=== PATIENT | male | born 1970 | race Caucasian/White ===

== ENCOUNTER → 2017-10-16 15:25 | Outpatient (REF) | payer MEDICAID, SELFPAY ==
[2017-10-16 19:08] LABS: Amphetamine/Metha Screen,Urine Negative ng/mL (<1000); Barbiturates Screen,Urine Negative ng/mL (<200); Benzodiazepines Screen,Urine Negative ng/mL (200); Cannabinoid Screen,Urine Negative ng/mL (<50); Cocaine Screen,Urine Negative ng/g (<300); Methadone Screen,Urine Negative ng/mL (<300); Opiate Screen,Urine Negative ng/mL (<300); Phencyclidine Screen,Urine Negative ng/mL (<25)
== END ==
LOC: LAB 15:25
PROVIDERS: Visit Provider Nurse Practitioner Family
DX: Z79.899 Other long term (current) drug therapy (principal)
CPT/HCPCS: 80305

== ENCOUNTER → 2018-03-04 14:31 | Outpatient (REF) | payer MEDICAID, SELFPAY ==
[2018-03-04 18:33] LABS: Amphetamine/Metha Screen,Urine Negative ng/mL (<1000); Barbiturates Screen,Urine Negative ng/mL (<200); Benzodiazepines Screen,Urine Negative ng/mL (<200); Cannabinoid Screen,Urine Negative ng/mL (<50); Cocaine Screen,Urine Negative ng/mL (<300); Methadone Screen,Urine Negative ng/mL (<300); Opiate Screen,Urine Negative ng/mL (<300); Phencyclidine Screen,Urine Negative ng/mL (<25)
== END ==
LOC: LAB 14:31
PROVIDERS: Visit Provider Nurse Practitioner Family
DX: Z79.899 Other long term (current) drug therapy (principal)
CPT/HCPCS: 80305

== ENCOUNTER → 2018-04-15 14:05 | Outpatient (REF) | payer MEDICAID, SELFPAY ==
[2018-04-15 19:46] LABS: Amphetamine/Metha Screen,Urine Negative ng/mL (<1000); Barbiturates Screen,Urine Negative ng/mL (<200); Benzodiazepines Screen,Urine Negative ng/mL (<200); Cannabinoid Screen,Urine Negative ng/mL (<50); Cocaine Screen,Urine Negative ng/mL (<300); Methadone Screen,Urine Negative ng/mL (<300); Opiate Screen,Urine Negative ng/mL (<300); Phencyclidine Screen,Urine Negative ng/mL (<25)
== END ==
LOC: LAB 14:05
PROVIDERS: Visit Provider Nurse Practitioner Family
DX: Z79.899 Other long term (current) drug therapy (principal)
CPT/HCPCS: 80305

== ENCOUNTER → 2018-05-26 16:05 | Outpatient (REF) | payer MEDICAID, SELFPAY ==
[2018-05-26 19:22] LABS: Amphetamine/Metha Screen,Urine Negative ng/mL (<1000); Barbiturates Screen,Urine Negative ng/mL (<200); Benzodiazepines Screen,Urine Negative ng/mL (<200); Cannabinoid Screen,Urine Negative ng/mL (<50); Cocaine Screen,Urine Negative ng/mL (<300); Methadone Screen,Urine Negative ng/mL (<300); Opiate Screen,Urine Negative ng/mL (<300); Phencyclidine Screen,Urine Negative ng/mL (<25)
== END ==
LOC: LAB 16:05
PROVIDERS: Visit Provider Nurse Practitioner Family
DX: Z79.899 Other long term (current) drug therapy (principal)
CPT/HCPCS: 80305

== ENCOUNTER → 2018-06-05 17:34 | Outpatient (CLI) | payer MEDICAID, SELFPAY ==
--- NOTE | 2018-06-05 17:38 | XR_ITS ---
XR hip RT 2-3V w/pelvis HISTORY: ITS.REASON: ba hip and ba leg pain ORDERING PHYSICIAN: Hina Chilel PATIENT AGE: 47 years COMPARISON: None FINDINGS: No fracture or dislocation is evident. No significant degenerative change. No lytic or blastic change. Unremarkable soft tissues IMPRESSION: Negative hip
--- NOTE | 2018-06-05 17:57 | XR_ITS ---
XR hip LT 2-3V w/pelvis HISTORY: ITS.REASON: BILATERAL HIP LEG PAIN ORDERING PHYSICIAN: Hina Chilel PATIENT AGE: 47 years COMPARISON: None FINDINGS: No fracture or dislocation is evident. No significant degenerative change. No lytic or blastic change. Unremarkable soft tissues IMPRESSION: Negative hip
== END ==
PROVIDERS: PCP Nurse Practitioner Family; Visit Provider Nurse Practitioner Family
DX: M25.551 Pain in right hip (principal); M25.552 Pain in left hip; M79.604 Pain in right leg; M79.605 Pain in left leg
CPT/HCPCS: 73502

== ENCOUNTER → 2018-06-10 19:05 | Outpatient (REF) | payer MEDICAID, SELFPAY ==
[2018-06-10 20:27] LABS: Alanine Aminotransferase 30 U/L (12-78); Albumin Level 4.3 gm/dL (3.4-5.0); Albumin/Globulin Ratio 1.3 (1.1-1.8); Alkaline Phosphatase 74 U/L (46-116); Aspartate Amino Transferase 21 U/L (15-37); Bilirubin,Total 0.6 mg/dL (0.2-1.0); Blood Urea Nitrogen 8 mg/dL (7-18); Calcium 9.1 mg/dL (8.5-10.1); Carbon Dioxide 28 mmol/L (21.0-32.0); Chloride 103 mmol/L (98-107); Creatinine,Serum 0.88 mg/dL (0.70-1.30); Estimated Glomerular Filt Rate 94 ml/min (>60); GFR (African American) 113 ML/MIN (>60); Globulin 3.3 gm/dl (1.3-3.2); Glucose 94 mg/dL (74-106); Sodium 141 mmol/L (136-145); Total Protein,Serum 7.6 gm/dL (6.4-8.2)
[2018-06-10 20:28] LABS: C-Reactive Protein < 0.2 mg/L (0.0-0.9)
[2018-06-10 21:03] LABS: Erythrocyte Sedimentation Rate 15 mm/hr (0-15)
[2018-06-12 14:15] LABS: Anti-Centromere B Antibodies <0.2 AI (0.0-0.9); Anti-Jo-1 <0.2 AI (0.0-0.9); Anti-Smith Antibody <0.2 AI (0.0-0.9); Antichromatin Antibodies <0.2 AI (0.0-0.9); Antiscleroderma-70 Antibodies <0.2 AI (0.0-0.9); RNP Antibodies 0.3 AI (0.0-0.9); Sjogren's Anti-SS-A <0.2 AI (0.0-0.9); Sjogren's Anti-SS-B <0.2 AI (0.0-0.9)
[2018-06-12 18:06] LABS: Anti-DNA (DS) Ab Qn <1 IU/mL (0-9)
== END ==
LOC: LAB 19:05
PROVIDERS: PCP Nurse Practitioner Family; Visit Provider Nurse Practitioner Family
DX: M25.551 Pain in right hip (principal); M25.552 Pain in left hip
CPT/HCPCS: 80053; 85651; 86140; 86225; 86235

== ENCOUNTER → 2018-07-22 20:55 | Outpatient (CLI) | payer MEDICAID, SELFPAY ==
[2018-07-22 22:54] LABS: Amphetamine/Metha Screen,Urine Negative ng/mL (<1000); Barbiturates Screen,Urine Negative ng/mL (<200); Benzodiazepines Screen,Urine Negative ng/mL (<200); Cannabinoid Screen,Urine Negative ng/mL (<50); Cocaine Screen,Urine Negative ng/mL (<300); Methadone Screen,Urine Negative ng/mL (<300); Opiate Screen,Urine Negative ng/mL (<300); Phencyclidine Screen,Urine Negative ng/mL (<25)
== END ==
PROVIDERS: Visit Provider Nurse Practitioner Family
DX: Z79.899 Other long term (current) drug therapy (principal)
CPT/HCPCS: 80305

== ENCOUNTER → 2018-09-23 14:22 | Outpatient (CLI) | payer MEDICAID, SELFPAY ==
[2018-09-23 15:48] LABS: Amphetamine/Metha Screen,Urine Negative ng/mL (<1000); Barbiturates Screen,Urine Negative ng/mL (<200); Benzodiazepines Screen,Urine Negative ng/mL (<200); Cannabinoid Screen,Urine Negative ng/mL (<50); Cocaine Screen,Urine Negative ng/mL (<300); Methadone Screen,Urine Negative ng/mL (<300); Opiate Screen,Urine Negative ng/mL (<300); Phencyclidine Screen,Urine Negative ng/mL (<25)
== END ==
PROVIDERS: Visit Provider Nurse Practitioner Family
DX: Z79.899 Other long term (current) drug therapy (principal)
CPT/HCPCS: 80305

== ENCOUNTER → 2018-12-02 11:52 | Outpatient (CLI) | payer MEDICAID, SELFPAY ==
--- NOTE | 2018-12-02 11:54 | NM_ITS ---
SPECT MYOCARDIAL PERFUSION SCAN, REST AND STRESS: EXERCISE STRESS: [facility] REVIEW QGS EF AND WALL MOTION EVALUATION: QPS - PERFUSION EVALUATION: HISTORY: SOB, Palpitations, Fatigue, HTN, Tobacco use, Family history PROCEDURE: Rest imaging performed after administration of10.49 millicuries Tc MIBI. Dose administered at12:00 p.m., with imaging thereafter. Stress imaging was then performed following7 minutes 30 seconds of exercise stress. The patient achieved a heart omis225 with projected heart rate of148 . Resting BP143/86 with stress 158/75. At maximum exercise stress,31.5 millicuries Tc MIBI administered at 1:40 p.m. with minutes thereafter. FINDINGS: Perfusion Evaluation: The single slice spect images as well as the [facility] bull's-eye data summary were reviewed. Wall Motion and Ejection Fraction Evaluation: Gated SPECT review and analysis used to evaluate these features. There is a 61 % left ventricular ejection fraction. There seems to be good wall motion Stress images reveal mildly decreased at rest is normal uniform myocardial activity. Gated images calculated ejection fraction is 61. IMPRESSION: Reversible ischemia in the apical wall with normal ejection fraction. Clinical correlation advised
--- NOTE | 2018-12-02 14:12 | HMH.ITSHM ---
Current Home Medications as stated by this patient Madhu oPon or territory representative. []SIMVASTATIN AMITRIPTYLINE ISORB OMEPRAZOLE ASA GABAPENTIN AMLODIPINE
== END ==
PROVIDERS: PCP Nurse Practitioner Family; Visit Provider Internal Medicine
DX: I20.9 Angina pectoris, unspecified (principal); R06.02 Shortness of breath; E78.5 Hyperlipidemia, unspecified; I11.9 Hypertensive heart disease without heart failure; I25.10 Atherosclerotic heart disease of native coronary artery without angina pectoris
CPT/HCPCS: 78452; 93017; 93306; A9502

== ENCOUNTER → 2018-12-28 15:25 | Outpatient (CLI) | payer MEDICAID, SELFPAY ==
--- NOTE | 2018-12-28 15:28 | US_ITS ---
US Arterial Ankle Brachial Ind History: Claudication, rest pain, current smoker ORDERING PHYSICIAN: Araceli Salazar APRN PATIENT AGE: 48 years TECHNIQUE: Segmental pressures obtained of both right and left leg. These are compared to brachial blood pressure to yield index at each level sampled including summary JESSICA. The data sheets from the procedure are available in PACS FINDINGS Rest study only performed today No prior studies available for comparison. Blood pressures reported are in millimeters mercury. RIGHT LEG JESSICA = 1.1. RIGHT LEG TBI=.8 Brachial BP: 100 Thigh BP: 121 Calf BP: 123 Ankle PT: 128 Ankle DP : 116 Digit =91 LEFT LEG JESSICA = 1.0 LEFT LEG TBI= .7 Brachial BPD: 117 Thigh BP: 120 Calf BP: 124 Ankle PT:129 Ankle DP: 130 Digit = 87 Pulses and waveforms: Normal IMPRESSION: The ABIs as reported above are within normal limits. Waveforms and pulses are also unremarkable.
== END ==
PROVIDERS: PCP Nurse Practitioner Family; Visit Provider Nurse Practitioner Family
DX: I25.118 Atherosclerotic heart disease of native coronary artery with other forms of angina pectoris (principal); I11.9 Hypertensive heart disease without heart failure; M79.604 Pain in right leg; M79.605 Pain in left leg; F17.200 Nicotine dependence, unspecified, uncomplicated
CPT/HCPCS: 93922

== ENCOUNTER 2019-01-05 06:58 | Day surgery (SDC) | payer MEDICAID, SELFPAY ==
[2019-01-05] VITALS (12 sets, daily range): BP systolic 116–149; BP diastolic 70–92; PULSE 54–70; RESP 16–18; O2SAT 97–99; BMI 26.1
--- NOTE | 2019-01-05 | IR_ITS ---
CARDIAC CATHETERIZATION DATE OF CATHETERIZATION:01/05/2019 10:15 AM PROCEDURES: 1. Left heart catheterization 2. Left ventriculogram 3. Selective coronary angiogram 4. Drug-eluting stent deployment to the proximal dominant right coronary artery INDICATION FOR TEST: 1. Coronary artery disease 2. Accelerated angina pectoris Informed consent was obtained prior to the procedure. COMPLICATIONS: None ESTIMATED BLOOD LOSS: Less than 10 ml. TECHNIQUE: One percent lidocaine used to anesthetize the right anterior aspect of the wrist. The right radial artery was accessed via the Seldinger technique. A 6 [place] sheath was placed in the right radial artery. 2.5 mg of verapamil, 800 mcg of nitroglycerin, 1mg Lidocaine and 5000 U Heparin were given through the arterial sheath. The trap catheter was also used to perform left heart catheterization, left ventriculogram and selective coronary angiogram. At the end of the diagnostic angiogram 800 mcg of intracoronary nitroglycerin was administered and several minutes later this severe stenosis in the proximal right coronary artery persisted. 4000 units of heparin was administered intravenously reducing a therapeutic ACT. A right guide catheter was used intubate right coronary artery and a BMW wire is placed distal to the stenosis. 3 mm x 18 mm resolute [place] stent was deployed at 18 sharif reducing the severe stenosis to 0%. ALLISON-3 flow was present before and after the procedure. At the end of the procedure the apparatus was removed the sheath was removed good hemostasis was achieved using TR banding patient was transferred to the postop holding in stable condition ANGIOGRAPHIC RESULTS: 1. The left main artery normal 2. The left anterior descending artery is proximally normal and has a mild 20% myocardial bridge in the mid segment 3. The circumflex artery is a nondominant yet still large vessel mild 10-20% stenoses in the large first obtuse marginal artery 4. The right coronary artery is a dominant vessel and has proximal 80% stenosis 5. The CARO ventriculogram reveals normal 65% 6. The left ventricular end-diastolic pressure 10 mmHg IMPRESSION: 1. Severe single vessel coronary artery disease in a large proximal dominant right coronary artery with successful stenting reducing the severe stenosis to 0% with 1 drug-eluting stent 2. Normal ejection fraction 3. Normal left ventricular end-diastolic pressure PLAN: 1. Brilinta and aspirin 2. Cardiac rehabilitation 3. Risk factor modification 4. LDL less than 55
[2019-01-05 08:35] LABS: Basophils % 0.6 % (0.1-2.0); Eosinophils # 0.1 K/mm3 (0.0-0.4); Eosinophils % 1.5 % (0.1-12.0); Hematocrit 43.6 % (42.0-52.0); Hemoglobin 14.9 g/dL (14.1-18.0); Lymphocytes # 2.3 K/mm3 (0.7-4.5); Lymphocytes % 35.3 % (10-50); Mean Corpuscular HGB Conc 34.2 g/dL (31.8-35.4); Mean Corpuscular Hemoglobin 34.4 pg (27.0-31.2); Mean Corpuscular Volume 100.4 fl (80-94); Mean Platelet Volume 8.1 fl (7.4-10.4); Monocytes # 0.6 K/mm3 (0.1-1.0); Monocytes % 9.1 % (1.7-9.3); Neutrophils # 3.4 K/mm3 (1.8-7.8); Neutrophils % 53.5 % (37.0-80.0); Platelet Count 196 K/mm3 (142-424); Red Blood Count 4.34 M/mm3 (4.60-6.20); White Blood Count 6.4 K/mm3 (4.8-10.8)
[2019-01-05 08:39] LABS: Anion Gap 13.9 mEq/L (5-15); Blood Urea Nitrogen 10 mg/dL (7-18); Calcium 8.9 mg/dL (8.5-10.1); Carbon Dioxide 28 mmol/L (21.0-32.0); Chloride 100 mmol/L (98-107); Creatinine Clearance Estimated 125 mL/min (50-200); Creatinine,Serum 0.94 mg/dL (0.70-1.30); Estimated Glomerular Filt Rate 86 ml/min (>60); GFR (African American) 105 ML/MIN (>60); Glucose 93 mg/dL (74-106); Sodium 138 mmol/L (136-145)
[2019-01-05 08:40] LABS: Potassium 3.9 mmoL/L (3.5-5.1)
[2019-01-05 13:34] LABS: CATHL Activated Clotting Time 334 SEC (74-125)
--- NOTE | 2019-01-05 13:48 | HMH.PHACLD ---
Madhu Leijaoughby has received discharge medication counseling on the following medications: PATIENT CURRENTLY PRESCRIBED: ASPIRIN 81 MG DAILY BISOPROLOL 5 MG DAILY SIMVASTATIN 20 MG HS MD ADDING BRILINTA 90 MG BID TO THIS. FREELANCE TRANSLATOR STAFF INDICATED MD WOULD ADDRESS URVASHI/ARB AT FOLLOW UP VISIT IN THE OFFICE. PATIENT WITH NORMAL BLOOD PRESSURE AT THIS VISIT.
== END 2019-01-05 13:51 | disposition home or self-care (01) ==
LOC: CATHLAB 07:00
PROVIDERS: PCP Nurse Practitioner Family; Visit Provider Internal Medicine
DX: I25.118 Atherosclerotic heart disease of native coronary artery with other forms of angina pectoris (principal); I11.9 Hypertensive heart disease without heart failure; E78.5 Hyperlipidemia, unspecified; Z72.0 Tobacco use; Z82.49 Family history of ischemic heart disease and other diseases of the circulatory system; J44.9 Chronic obstructive pulmonary disease, unspecified; Z79.899 Other long term (current) drug therapy; I70.213 Atherosclerosis of native arteries of extremities with intermittent claudication, bilateral legs
CPT/HCPCS: 80048; 85025; 85347; 92928; 93458; 99152; C1725; C1769; C1876; C9600; J1644; Q9967

== ENCOUNTER → 2019-03-23 17:14 | Outpatient (CLI) | payer MEDICAID, SELFPAY ==
[2019-03-23 20:36] LABS: Amphetamine/Metha Screen,Urine Negative ng/mL (<1000); Barbiturates Screen,Urine Negative ng/mL (<200); Benzodiazepines Screen,Urine Negative ng/mL (<200); Cannabinoid Screen,Urine Negative ng/mL (<50); Cocaine Screen,Urine Negative ng/mL (<300); Methadone Screen,Urine Negative ng/mL (<300); Opiate Screen,Urine Negative ng/mL (<300); Phencyclidine Screen,Urine Negative ng/mL (<25)
== END ==
PROVIDERS: Visit Provider Nurse Practitioner Family
DX: Z79.899 Other long term (current) drug therapy (principal)
CPT/HCPCS: 80305

== ENCOUNTER → 2019-08-25 17:33 | Outpatient (CLI) | payer MEDICAID, SELFPAY ==
[2019-08-25 19:38] LABS: Amphetamine/Metha Screen,Urine Negative ng/mL (<1000); Barbiturates Screen,Urine Negative ng/mL (<200); Benzodiazepines Screen,Urine Negative ng/mL (<200); Cannabinoid Screen,Urine Negative ng/mL (<50); Cocaine Screen,Urine Negative ng/mL (<300); Methadone Screen,Urine Negative ng/mL (<300); Opiate Screen,Urine Negative ng/mL (<300); Phencyclidine Screen,Urine Negative ng/mL (<25)
== END ==
PROVIDERS: Visit Provider Nurse Practitioner Family
DX: Z79.899 Other long term (current) drug therapy (principal)
CPT/HCPCS: 80305

== ENCOUNTER → 2020-02-03 06:24 | Outpatient (CLI) | payer MEDICAID, SELFPAY ==
--- NOTE | 2020-02-03 06:25 | NM_ITS ---
APPROVED REPORT Exam: Nuclear Stress Test Indication: Chest pain, SOB, Fatigue, High cholesterol, CAD, Tobacco use, Family history Patient Location: Outpatient Stress Tech: Joanne Tran [place] Tech:Julieth Mcclelland, ARRT, RT (R)(N) Ht: 6 ft 1 in Wt: 185 lbs HR: 65 bpm BP: 145/83 mmHg BSA: 2.08 m2 BMI: 24.4 History: Chest pain, SOB, Fatigue, High cholesterol, CAD, Tobacco use, Family history Procedure: Patient exercised on Angel protocol 7:31 minutes and sec, resting heart rate 65 bpm, resting blood pressure 145/83 mmHg, with exercise maximum heart rate achived was 149 bpm which is % of the maximum predicted heart rate and blood pressure was 164/80 mmHg. Test was stopped due to SOA and leg fatigue. Patient denied any complaint of chest pain. Patient has exercise capacity, achieved 10.1 METs of workload on treadmill, the blood pressure response to exercise was . Cardiac Stress and Resting SPECT Images: Cardiac Stress and Resting SPECT images were obtained using technetium 99m Myoview 30.3 mCi stress and 10.90 mCi at rest. Ejection fraction is normal at 69% with no wall motion abnormalities apparent. No fixed or reversible defects. Normal exam Conclusion: Normal exam Electronically signed by : Ottoniel Montesinos MD 02/04/2020 14:51:14
--- NOTE | 2020-02-03 06:25 | CA_ITS ---
APPROVED REPORT Exam: Exercise Treadmill Technologist: Joanne Tran, Ht: 6 ft 1 in Wt: 185 lbs BSA: 2.08 m2 Indications: CP/SOA Medical History Medical History: Hyperlipidemia Medications: Amlodipine,,,,, Omeprazole,,,,, Isosorbide,,,,, Aspirin,,,,, Simvastatin,,,,, Gabapentin,,,,, Ticagrelor,,,,, BisOPROLOL,,,,, AmiTRIPTYLINE,,,,, Cardiac Risk Factors: Hyperlipidemia, FHX of CAD, Smoking Stress Test Details Test: Angel HR Resting HR: 84 bpm Max Heart Rate (APMHR): 173 bpm Max HR Achieved: 149 bpm Target HR (85% APMHR): 147 bpm % of APMHR: 86 BP Resting BP: 145/83 mmHg Max BP: 164/80 mmHg ECG Clinical Exercise duration: 07:31 min Highest Stage Achieved: Exercise capacity: 10.1 METs Stress ECG Conclusion Exercised 7:31 on Angel Protocol No CP, no arrhythmias normal ST response to exercise Normal GXT Myoview images reported separately Electronically signed by : Marcel Lew, 02/04/2020 11:25:54
--- NOTE | 2020-02-03 07:11 | HMH.ITSHM ---
Current Home Medications as stated by this patient Madhu Poon or kiosk sales representative. []TICAGRELOR SIMVASTATIN OMEPRAZOLE ISOSORBIDE GABAPENTIN BISOPROLOL ASA AMLODIPINE AMITRIPTYLINE
== END ==
PROVIDERS: PCP Nurse Practitioner Family; Visit Provider Nurse Practitioner Family
DX: R07.89 Other chest pain (principal); R06.00 Dyspnea, unspecified; I25.118 Atherosclerotic heart disease of native coronary artery with other forms of angina pectoris; I11.9 Hypertensive heart disease without heart failure; E78.2 Mixed hyperlipidemia; M79.602 Pain in left arm; F17.200 Nicotine dependence, unspecified, uncomplicated
CPT/HCPCS: 78452; 93017; 93306; A9502

== ENCOUNTER → 2020-02-08 14:23 | Outpatient (CLI) | payer MEDICAID, SELFPAY ==
[2020-02-08 16:03] LABS: Alanine Aminotransferase 14 U/L (12-78); Albumin Level 4.2 g/dl (3.5-5.0); Alkaline Phosphatase 77 U/L (38-126); Aspartate Amino Transferase 30 U/L (17-59); Bilirubin,Direct 0.2 mg/dl (0.0-0.4); Bilirubin,Indirect 0.5 mg/dL (0.0-0.9); Bilirubin,Total 0.7 mg/dl (0.2-1.3); Bilirubin,Unconjugated 0.5 mg/dL (0.0-1.1); Chol/HDL Ratio 3.1 (1-3.5); Cholesterol 150 mg/dl (140-200); HDL Cholesterol 48 mg/dl (40-60); Total Protein,Serum 6.9 g/dl (6.3-8.2); Triglycerides 139 mg/dl (30-150); VLDL Cholesterol 28 mg/dL (0-40)
[2020-02-08 16:14] LABS: Direct LDL Cholesterol 83.06 mg/dL (100-129)
== END ==
PROVIDERS: Visit Provider Urology
DX: E78.2 Mixed hyperlipidemia (principal); I11.9 Hypertensive heart disease without heart failure; I25.118 Atherosclerotic heart disease of native coronary artery with other forms of angina pectoris; R06.00 Dyspnea, unspecified; R07.89 Other chest pain
CPT/HCPCS: 36415; 80061; 80076

== ENCOUNTER 2020-04-01 01:49 | Emergency (ER) | payer MEDICAID, SELFPAY ==
[2020-04-01] VITALS (10 sets, daily range): BP systolic 103–142; BP diastolic 60–90; PULSE 68–85; RESP 16–20; TEMP 36.6; O2SAT 96–100; BMI 23.7
--- NOTE | 2020-04-01 02:00 | ECG_ITS ---
APPROVED REPORT Exam: Resting ECG HR:61 bpm ECG Measurements Heart Rate 61 AXES FL 192 P 43 QRSd 86 QRS 36 QT 402 T 69 QTc 404 <Conclusion> Normal sinus rhythm Normal ECG Electronically signed by : Amado Fine, 04/01/2020 20:55:07
--- NOTE | 2020-04-01 02:05 | XR_ITS ---
PROCEDURE: XR CHEST 2V CLINICAL HISTORY: SOA COMPARISON: CR CXR CHEST(2 VIEWS-NOT PORTABLE) from 09/21/[address] CHEST W/O CONTRAST from 05/24/2015 CR CXR1 CHEST-PORTABLE from 04/30/2017 CR CXR2V XR chest 2V from 11/11/2018 FINDINGS: The cardiomediastinal silhouette and pulmonary vascularity are within normal limits. The lungs are clear without infiltrates, suspicious nodules, or pleural effusions. No acute bony abnormalities. IMPRESSION: No acute findings. Dictated by: Dr. Aramis Arzola MD 04/01/2020 07:51 Dr. Aramis Arzola MD in [place] 04/01/2020 07:51
[2020-04-01 02:12] LABS: Basophils % 0.4 % (0.1-2.0); Eosinophils # 0.1 K/mm3 (0.0-0.4); Eosinophils % 1.1 % (0.1-12.0); Hematocrit 39.4 % (42.0-52.0); Hemoglobin 13.1 g/dL (14.1-18.0); Lymphocytes # 2.4 K/mm3 (0.7-4.5); Lymphocytes % 25.6 % (10-50); Mean Corpuscular HGB Conc 33.3 g/dL (31.8-35.4); Mean Corpuscular Hemoglobin 33.2 pg (27.0-31.2); Mean Corpuscular Volume 99.8 fl (80-94); Mean Platelet Volume 8.2 fl (7.4-10.4); Monocytes # 0.6 K/mm3 (0.1-1.0); Monocytes % 5.9 % (1.7-9.3); Neutrophils # 6.2 K/mm3 (1.8-7.8); Neutrophils % 66.9 % (37.0-80.0); Platelet Count 201 K/mm3 (142-424); Red Blood Count 3.95 M/mm3 (4.60-6.20); White Blood Count 9.2 K/mm3 (4.8-10.8)
[2020-04-01 02:17] LABS: Anion Gap 13.9 mEq/L (5-15); Blood Urea Nitrogen 12 mg/dl (9-20); Calcium 9.7 mg/dl (8.4-10.2); Carbon Dioxide 30 mmol/L (22.0-30.0); Chloride 98 mmol/L (98-107); Creatinine Clearance Estimated 132 mL/min (50-200); Estimated Glomerular Filt Rate 104 ml/min (>60); GFR (African American) 125 ML/MIN (>60); Glucose 107 mg/dl (74-100); Potassium 3.9 mmoL/L (3.5-5.1); Sodium 138 mmol/L (136-145)
--- NOTE | 2020-04-01 02:22 | HMH.EDSOB ---
ED Disposition Clinical Impression: Acute exacerbation of chronic obstructive airways disease, Smoker Dyspnea Qualifiers: Dyspnea type: shortness of breath Qualified Code(s): R06.02 - Shortness of breath Disposition: Home, Self-Care Condition on Discharge: Good Instructions: DI for Chronic Obstructive Pulmonary Disease Additional Instructions: use meds and see pcp for follo wup Prescriptions: levoFLOXacin [Levaquin 500mg tab] 500 mg PO DAILY #7 tab Transmission Status: Received by [facility] predniSONE [Prednisone 20mg Tab] 20 mg PO BID #10 tab Transmission Status: Received by [facility] Referrals: Hina Chilel APRN [Primary Care Provider] - - Critical Care Critical Care Time: No Attestation: On 04/01/20, the high probability of a clinically significant, sudden or life threatening deterioration of the following system(s) required my full and direct attention, intervention and personal management. The time I documented below is in addition to time spent performing reported procedures but includes the following listed in this critical care notation. Medical Decision Making - Medical Records Medical records reviewed: Yes: I reviewed the patient's medical records. - Jose Raul Inquiry Pt receiving controlled substance: No Vital Signs: 04/01/20 01:58 04/01/20 02:24 04/01/20 02:37 Temperature 97.9 F Temperature Source Oral Pulse Rate 85 Pulse Rate [Right Brachial] 68 75 Respiratory Rate 17 Blood Pressure Blood Pressure [Right Arm] 142/90 H 138/76 Blood Pressure Mean [Right Arm] 107 96 Blood Pressure Source Blood Pressure Source [Right Arm] Automatic Cuff Automatic Cuff Blood Pressure Position Blood Pressure Position [Right Arm] Sitting Sitting 02 Sat by Pulse Oximetry 98 100 Oxygen Delivery Method Room Air Room Air 04/01/20 02:51 04/01/20 03:15 04/01/20 03:45 Temperature Temperature Source Pulse Rate Pulse Rate [Right Brachial] 76 70 72 Respiratory Rate 20 17 17 Blood Pressure Blood Pressure [Right Arm] 120/76 116/76 122/69 Blood Pressure Mean [Right Arm] 90 89 86 Blood Pressure Source Blood Pressure Source [Right Arm] Automatic Cuff Automatic Cuff Automatic Cuff Blood Pressure Position Blood Pressure Position [Right Arm] Sitting Sitting Sitting 02 Sat by Pulse Oximetry 98 97 98 Oxygen Delivery Method Room Air Room Air Room Air 04/01/20 04:05 04/01/20 04:59 04/01/20 05:36 Temperature Temperature Source Pulse Rate Pulse Rate [Right Brachial] 72 69 78 Respiratory Rate 16 Blood Pressure Blood Pressure [Right Arm] 108/67 L 103/60 L 104/66 L Blood Pressure Mean [Right Arm] 80 74 78 Blood Pressure Source Blood Pressure Source [Right Arm] Automatic Cuff Automatic Cuff Blood Pressure Position Blood Pressure Position [Right Arm] Sitting Sitting 02 Sat by Pulse Oximetry 97 98 96 Oxygen Delivery Method Room Air Room Air Room Air 04/01/20 05:58 Temperature 97.9 F Temperature Source Pulse Rate 71 Pulse Rate [Right Brachial] Respiratory Rate 17 Blood Pressure 109/64 L Blood Pressure [Right Arm] Blood Pressure Mean [Right Arm] Blood Pressure Source Automatic Cuff Blood Pressure Source [Right Arm] Blood Pressure Position Sitting Blood Pressure Position [Right Arm] 02 Sat by Pulse Oximetry Oxygen Delivery Method Room Air - Lab Data Lab results reviewed: Yes: I reviewed the patient's lab results. Lab Results 04/01/20 02:03: WBC 9.2, RBC 3.95 L, Hgb 13.1 L, Hct 39.4 L, MCV 99.8 H, MCH 33.2 H, MCHC 33.3, RDW 13.0, Plt Count 201, MPV 8.2, Neut % (Auto) 66.9, Lymph % (Auto) 25.6, [place] % (Auto) 5.9, Eos % (Auto) 1.1, Baso % (Auto) 0.4, Neut # (Auto) 6.2, Lymph # (Auto) 2.4, [place] # (Auto) 0.6, Eos # (Auto) 0.1, Baso # (Auto) 0.0 04/01/20 02:03: Sodium 138, Potassium 3.9, Chloride 98, Carbon Dioxide 30, Anion Gap 13.9, BUN 12, Creatinine 0.80, Estimated Creat Clear 132, Estimated GFR 104, Est GFR (Afric
[2020-04-01 02:27] LABS: NT Pro Brain Natriuretic Pep. 203 pg/mL (0-125)
--- NOTE | 2020-04-01 02:34 | CT_ITS ---
Procedure: CT ANGIO NECK CLINICAL HISTORY: feels swollen COMPARISON: No exams were available for comparison TECHNIQUE: IV Contrast: 100ml Optiray 350 Axial images obtained with sagittal and coronal reformats. All CT scans at the facility use one or more dose reduction, viz: automated exposure control, ma/kV adjustment per patient size (including targeted exams where dose is matched to indication, i.e. head), or iterative reconstruction technique. FINDINGS: The timing for optimal opacification of the carotid arteries is somewhat suboptimal. However both common carotid arteries appear normal. There is minimal focal calcific plaque at the origin of the right internal carotid without significant stenosis identified. The origin of the left internal carotid appears normal. The external carotid arteries appear unremarkable bilaterally. The oral pharyngeal airway appears normal. The epiglottis is normal. The vallecula and piriform sinuses appear normal. The vocal cords are grossly normal. The thyroid gland is grossly normal. There is straightening of the normal curvature cervical spine. There is mild degenerate changes at the C5-6 and C6-7 levels. IMPRESSION: No significant internal carotid vascular stenosis and no other significant pathology identified. Dictated by: Dr. Aramis Arzola MD 04/02/2020 11:37 Dr. Aramis Arzola MD in [place] 04/02/2020 11:37
[2020-04-01 02:35] LABS: T4 (Thyroxine) 8.1 ug/dl (5.53-11.0)
[2020-04-01 02:37] LABS: Troponin I < 0.01 ng/ml (0.00-0.034)
[2020-04-01 02:48] LABS: Thyroid Stimulating Hormone 2.97 uIU/mL (0.465-4.68)
--- NOTE | 2020-04-01 04:05 | PC.NURSE ---
Patient back from CT at this time
--- NOTE | 2020-04-01 05:04 | PC.NURSE ---
spoke with nina with rad; states vrad is still in scan reading at this time.
[2020-04-01 06:06] LABS: Troponin I < 0.01 ng/ml (0.00-0.034)
== END 2020-04-01 06:13 | disposition home or self-care (01) ==
PROVIDERS: Emergency Provider Emergency Medicine; PCP Nurse Practitioner Family
DX: J44.1 Chronic obstructive pulmonary disease with (acute) exacerbation (principal); I25.10 Atherosclerotic heart disease of native coronary artery without angina pectoris; K21.9 Gastro-esophageal reflux disease without esophagitis; I10 Essential (primary) hypertension; E78.5 Hyperlipidemia, unspecified; Z87.891 Personal history of nicotine dependence; Z79.899 Other long term (current) drug therapy
CPT/HCPCS: 70498; 71046; 80048; 83880; 84436; 84443; 84484; 85025; 93005; 96374; 96375; 99283; Q9967

== ENCOUNTER 2020-04-07 11:51 | Emergency (ER) | payer MEDICAID, SELFPAY ==
--- NOTE | 2020-04-07 11:47 | ECG_ITS ---
APPROVED REPORT Exam: Resting ECG HR:83 bpm ECG Measurements Heart Rate 83 AXES OK 158 P 60 QRSd 94 QRS 16 QT 404 T 39 QTc 474 <Conclusion> Normal sinus rhythm Nonspecific T wave abnormality Prolonged QT Abnormal ECG Electronically signed by : Jordon Chris, 04/07/2020 17:42:49
[2020-04-07 11:51] VITALS: BP 160/88; PULSE 92; RESP 16; TEMP 36.8; O2SAT 98; BMI 24.4
[2020-04-07 11:52] VITALS: BMI 24.4
--- NOTE | 2020-04-07 11:52 | XR_ITS ---
PROCEDURE: XR CHEST PORTABLE CLINICAL HISTORY: chest pain COMPARISON: CT [facility] CT CHEST W/O CONTRAST from 05/24/2015 CR CXR1 CHEST-PORTABLE from 04/30/2017 CR CXR2V XR chest 2V from 11/11/2018 CR XR CHEST 2V from 04/01/2020 FINDINGS: The cardiomediastinal silhouette and pulmonary vascularity are within normal limits. : Questionable ill-defined opacities in the left perihilar and infrahilar location with confluence of vascular shadows versus a possible developing pneumonic infiltrate as considerations. The left upper lung field and right lung for remain clear. There is no pleural fluid. There monitor lines overlying the chest. IMPRESSION: Possible developing minimal infiltrate left lower lobe versus confluence of vascular shadows and suggest clinical correlation Dictated by: Dr. Aramis Arzola MD 04/07/2020 13:31 Dr. Aramis Arzola MD in [place] 04/07/2020 13:31
--- NOTE | 2020-04-07 11:59 | HMH.EDGENADL ---
ED Disposition Clinical Impression: Abdominal pain, generalized, Atypical chest pain Pneumonia Qualifiers: Pneumonia type: due to unspecified organism Laterality: bilateral Lung location: unspecified part of lung Qualified Code(s): J18.9 - Pneumonia, unspecified organism Disposition: Home, Self-Care Condition on Discharge: Good Instructions: DI for Pneumonia -- Adult, DI for Atypical Chest Pain Additional Instructions: See Dr. Lew in his office on Friday. Call the emergency department in 2 days to get COVID-19 result. Quarantine until COVID-19 result is known. Additional instructions for PNEUMONIA: See your physician as soon as possible for further evaluation. Return immediately if you have an uncontrollable fever greater than 102 degrees, difficulty breathing or shortness of breath, persistent vomiting, or severe chest pain. Additional instructions for CHEST PAIN: See your physician as soon as possible for further evaluation. Return immediately if worsening chest pain, vomiting, shortness of breath, fever, coughing of blood. Additional instructions for ABDOMINAL PAIN: See your physician as soon as possible for further evaluation. Return immediately if worsening abdominal pain, vomiting, shortness of breath, fever, vomiting of blood or abdominal distention. Prescriptions: Cefdinir [Omnicef 300mg Capsule] 300 mg PO BID #20 cap Transmission Status: Received by [facility] Azithromycin [Zithromax 250mg tab] 250 mg PO DAILY #4 tab Transmission Status: Received by [facility] Referrals: Paul Hui MD [Primary Care Provider] - - Critical Care Critical Care Time: No Attestation: On , the high probability of a clinically significant, sudden or life threatening deterioration of the following system(s) required my full and direct attention, intervention and personal management. The time I documented below is in addition to time spent performing reported procedures but includes the following listed in this critical care notation. Medical Decision Making - Medical Records Medical records reviewed: Yes: I reviewed the patient's medical records. - Jose Raul Inquiry Pt receiving controlled substance: No Vital Signs: 04/07/20 11:51 04/07/20 12:14 04/07/20 13:58 Temperature 98.3 F Temperature Source Oral Pulse Rate Pulse Rate [Left Radial] 92 H 81 79 Respiratory Rate 16 25 H 21 Blood Pressure Blood Pressure [Right Arm] 160/88 H 145/85 H 143/85 H Blood Pressure Mean [Right Arm] 112 105 104 Blood Pressure Source [Right Arm] Automatic Cuff Automatic Cuff Blood Pressure Position Blood Pressure Position [Right Arm] Sitting Supine Supine 02 Sat by Pulse Oximetry 98 98 99 Oxygen Delivery Method Room Air Room Air Room Air 04/07/20 14:50 04/07/20 15:00 04/07/20 16:11 Temperature 98 F Temperature Source Oral Pulse Rate 78 Pulse Rate [Left Radial] 70 70 Respiratory Rate 20 16 Blood Pressure 121/78 Blood Pressure [Right Arm] 135/82 125/79 Blood Pressure Mean [Right Arm] 99 94 Blood Pressure Source [Right Arm] Automatic Cuff Automatic Cuff Blood Pressure Position Sitting Blood Pressure Position [Right Arm] Sitting Sitting 02 Sat by Pulse Oximetry 97 99 Oxygen Delivery Method Room Air Room Air Room Air - Lab Data Lab results reviewed: Yes: I reviewed the patient's lab results. Lab Results 04/07/20 11:54: WBC 11.1 H, RBC 4.02 L, Hgb 13.5 L, Hct 38.7 L, MCV 96.2 H, MCH 33.5 H, MCHC 34.8, RDW 13.1, Plt Count 285, MPV 7.6, Neut % (Auto) 81.1 H, Lymph % (Auto) 13.3, [place] % (Auto) 5.2, Eos % (Auto) 0.2, Baso % (Auto) 0.2, Neut # (Auto) 9.0 H, Lymph # (Auto) 1.5, [place] # (Auto) 0.6, Eos # (Auto) 0.0, Baso # (Auto) 0.0 04/07/20 11:54: Sodium 137, Potassium 3.8, Chloride 98, Carbon Dioxide 29, Anion Gap 13.8, BUN 12, Creatinine 0.60 L, Estimated Creat Clear 181, Estimated GFR 144, Est GFR ( Amer) 175, Glucose 122 H, Calcium 9.5, Troponin
[2020-04-07 12:00] LABS: Basophils % 0.2 % (0.1-2.0); Eosinophils % 0.2 % (0.1-12.0); Hematocrit 38.7 % (42.0-52.0); Hemoglobin 13.5 g/dL (14.1-18.0); Lymphocytes # 1.5 K/mm3 (0.7-4.5); Lymphocytes % 13.3 % (10-50); Mean Corpuscular HGB Conc 34.8 g/dL (31.8-35.4); Mean Corpuscular Hemoglobin 33.5 pg (27.0-31.2); Mean Corpuscular Volume 96.2 fl (80-94); Mean Platelet Volume 7.6 fl (7.4-10.4); Monocytes # 0.6 K/mm3 (0.1-1.0); Monocytes % 5.2 % (1.7-9.3); Neutrophils % 81.1 % (37.0-80.0); Platelet Count 285 K/mm3 (142-424); Red Blood Count 4.02 M/mm3 (4.60-6.20); Red Cell Distribution Width 13.1 % (11.5-17.5); White Blood Count 11.1 K/mm3 (4.8-10.8)
[2020-04-07 12:05] LABS: Chloride 98 mmol/L (98-107); Sodium 137 mmol/L (136-145)
[2020-04-07 12:06] LABS: Potassium 3.8 mmoL/L (3.5-5.1)
[2020-04-07 12:07] LABS: Alanine Aminotransferase 25 U/L (12-78); Alkaline Phosphatase 87 U/L (38-126); Aspartate Amino Transferase 33 U/L (17-59); Bilirubin,Direct 0.2 mg/dl (0.0-0.4); Bilirubin,Indirect 0.5 mg/dL (0.0-0.9); Bilirubin,Total 0.7 mg/dl (0.2-1.3); Bilirubin,Unconjugated 0.5 mg/dL (0.0-1.1)
[2020-04-07 12:08] LABS: Albumin Level 4.1 g/dl (3.5-5.0); Amylase 42 U/L (30-110); Lipase 14 U/L (23-300); Total Protein,Serum 7.9 g/dl (6.3-8.2)
[2020-04-07 12:09] LABS: Anion Gap 13.8 mEq/L (5-15); Blood Urea Nitrogen 12 mg/dl (9-20); Calcium 9.5 mg/dl (8.4-10.2); Carbon Dioxide 29 mmol/L (22.0-30.0); Creatinine Clearance Estimated 181 mL/min (50-200); Estimated Glomerular Filt Rate 144 ml/min (>60); GFR (African American) 175 ML/MIN (>60); Glucose 122 mg/dl (74-100)
--- NOTE | 2020-04-07 12:09 | CT_ITS ---
PROCEDURE: CT ABDOMEN PELVIS W CON CLINICAL INDICATION: abdo pain Epigastric pain COMPARISON: CT [facility] CT CHEST W/O CONTRAST from 05/24/2015 TECHNIQUE: IV Contrast: 75ML OPTIRAY 350 Oral Contrast None Axial images obtained with sagittal and coronal reformats. All CT scans at the facility use one or more dose reduction, viz: automated exposure control, ma/kV adjustment per patient size (including targeted exams where dose is matched to indication, i.e. head), or iterative reconstruction technique. FINDINGS: LOWER THORAX: There is patchy ground-glass density in both lower lobes in the lung bases, right middle lobe, and lingula. No effusions. ABDOMEN & PELVIS: The liver, gallbladder, spleen, and pancreas have an unremarkable appearance. There is nodularity of both kidneys right more prominent than left. This is nonspecific and may be related to a adenomatous involvement. No renal or ureteral calculi or hydronephrosis evident. There is a moderate amount of retained colonic feces in the cecum, ascending colon, hepatic flexure, and proximal transverse colon. Mild amount of feces and gas noted within the splenic flexure and descending colon. There are few colonic diverticula but no evidence of diverticulitis. No evidence of appendicitis.. No pelvic mass abnormal fluid collection or focal inflammatory change evident within the pelvis. There are some nonspecific fluid-filled loops of small bowel which are nondistended with a few air-fluid levels. IMPRESSION: 1. Patchy ground-glass density in both lower lobes right middle lobe and lingula. This could represent atypical pneumonia such as viral/novel rhodes virus 19 or pulmonary edema. 2. Constipation. 3. Nonspecific bowel gas pattern with fluid-filled loops of small bowel with scattered air-fluid levels which could be seen with enteritis. 4. No evidence of appendicitis, diverticulitis, or obstructing ureteral calculus. Dictated by: Ottoniel Montesinos MD 04/07/2020 13:14 Ottoniel Montesinos MD in [place] 04/07/2020 13:14
[2020-04-07 12:14] VITALS: BP 145/85; PULSE 81; RESP 25; O2SAT 98
[2020-04-07 12:21] LABS: Troponin I < 0.01 ng/ml (0.00-0.034)
--- NOTE | 2020-04-07 12:23 | PC.NURSE ---
pt going to CT
[2020-04-07 12:30] LABS: Strep Scrn Group A (Rapid) Negative (Negative)
[2020-04-07 13:58] VITALS: BP 143/85; PULSE 79; RESP 21; O2SAT 99
[2020-04-07 14:50] VITALS: BP 135/82; PULSE 70; O2SAT 97
[2020-04-07 15:00] VITALS: BP 125/79; PULSE 70; RESP 20; O2SAT 99
[2020-04-07 15:13] LABS: Troponin I < 0.01 ng/ml (0.00-0.034)
[2020-04-07 16:11] VITALS: BP 121/78; PULSE 78; RESP 16; TEMP 36.6; O2SAT 98
[2020-04-08 15:53] LABS: Covid-19 Nasal PCR Sendout Lex Not Detected
== END 2020-04-07 16:12 | disposition home or self-care (01) ==
PROVIDERS: Emergency Provider Emergency Medicine; PCP Emergency Medicine
DX: J18.9 Pneumonia, unspecified organism (principal); J44.9 Chronic obstructive pulmonary disease, unspecified; I25.10 Atherosclerotic heart disease of native coronary artery without angina pectoris; E78.5 Hyperlipidemia, unspecified; I10 Essential (primary) hypertension; K21.9 Gastro-esophageal reflux disease without esophagitis; Z20.828 Contact with and (suspected) exposure to other viral communicable diseases; Z95.4 Presence of other heart-valve replacement; F17.210 Nicotine dependence, cigarettes, uncomplicated; Z79.899 Other long term (current) drug therapy
CPT/HCPCS: 71045; 74177; 80048; 80076; 82150; 83690; 84484; 85025; 87430; 93005; 96365; 96367; 99284; J0456; Q9967; U0004

== ENCOUNTER 2020-04-17 16:09 | Emergency (ER) | payer MEDICAID, SELFPAY ==
--- NOTE | 2020-04-17 16:19 | XR_ITS ---
PROCEDURE: XR CHEST 2V CLINICAL HISTORY: SOB Shortness of breath, smoker COMPARISON: CT [facility] CT CHEST W/O CONTRAST from 05/24/2015 CR CXR2V XR chest 2V from 11/11/2018 CR XR CHEST 2V from 04/01/2020 CR XR CHEST PORTABLE from 04/07/2020 FINDINGS: The cardiomediastinal silhouette and pulmonary vascularity are within normal limits. Coronary artery stents are present. COPD. Patchy density is present in the right lower lobe posteriorly suggestive of a patchy area of infiltrate. No acute bony abnormalities. IMPRESSION: COPD with patchy infiltrate in the right lower lobe posteriorly Dictated by: Ottoniel Montesinos MD 04/17/2020 17:04 Ottoniel Montesinos MD in [place] 04/17/2020 17:04
[2020-04-17 16:22] VITALS: BP 120/80; PULSE 80; RESP 22; TEMP 36.7; O2SAT 100
--- NOTE | 2020-04-17 16:43 | HMH.EDUTC ---
[facility] [place] Clinical Impression: Anxiety Dyspnea Qualifiers: Dyspnea type: unspecified Qualified Code(s): R06.00 - Dyspnea, unspecified Disposition: Home, Self-Care Condition on Discharge: Good Instructions: Pneumonia-Adult, DI for Cough -- Adult, DI for Anxiety -- Adult Additional Instructions: *Monitor Temp, Over the counter Motrin or Tylenol as directed/as needed Tylenol every 4 hours and Motrin every 6 hours (as long as your family doctor has told you that you can take it) for fever or pain. and straight to ER if unable to lower temp less than 101.0 after medication given *Warm salt water gargles may help to soothe the throat *Throat Lozenges *Warm fluids like tea with honey may help to soothe the throat *Sleep elevated *Humidifier/Vaporizer *Flonase 2 sprays in each nostril daily but be aware that it may take 2-3 days before you notice improvement Follow up IMMEDIATELY for new or worsening symptoms or no Noticeable improvement over the next 48-72 hours. 911 for difficulty breathing or swallowing Call your Doctor office tomorrow and follow up tomorrow in the office Use your inhaler as prescribed Prescriptions: Fluticasone Propionate [Flonase 50mcg nasal spray 16gm] 1 - 2 spr NS DAILY #1 bottle Transmission Status: Received by [facility] hydrOXYzine pamoate [Vistaril 25mg capsule] 25 mg PO Q8H #3 cap Transmission Status: Received by [facility] Referrals: Hina Chilel APRN [Primary Care Provider] - As needed (Call office tomorrow and follow up ) Time of Disposition: 17:12 Medical Decision Making - Jose Raul Inquiry Pt receiving controlled substance: No Jose Raul was queried for this patient: No Vital Signs: 04/17/20 16:22 04/17/20 17:45 Temperature 98.1 F 98.1 F Temperature Source Oral Pulse Rate 80 Pulse Rate [Right Brachial] 80 Respiratory Rate 22 22 Blood Pressure 120/80 Blood Pressure [Right Arm] 120/80 Blood Pressure Mean [Right Arm] 93 Blood Pressure Source [Right Arm] Automatic Cuff Blood Pressure Position [Right Arm] Sitting 02 Sat by Pulse Oximetry 100 Oxygen Delivery Method Room Air Orders (Tests/Meds): ED MEDICATIONS Discontinued Medications Generic Name Dose Route Start Last Admin Trade Name Freq PRN Reason Stop Dose Admin Hydroxyzine Pamoate 25 mg 04/17/20 17:11 04/17/20 17:40 Vistaril 25mg Capsule PO 04/17/20 17:12 25 mg ONCE ONE Administration - Radiology Data #1 Image(s): Chest Image Reviewed: Yes I reviewed the patient's radiology image w/the ED provider Discussed with Dr Dougherty, today CXR Appears improved since previous xray on 04/07/20 Medical Decision Narrative: Patient was discussed patient and test results with PCP and that patient reports feeling anxious and wanting something for anxiety Discussed patient with Hina and discussed medications and agreed Vistaril 25mg q8 x 1 dose in [facility] and prescription for 3 pills and him follow up in the clinic tomorrow with Brian Chow. Medication also discussed with pharmacy. After dose of Vistaril patient talking and laughing with family no distress [facility] [place] HPI - General Stated complaint: SOB Time Seen by Provider: 04/17/20 16:40 Mode of Arrival: Ambulatory Source of Information: Patient Limitations: No Limitations Description of Symptoms (Recalled from Triage Doc. by RN): PATIENT C/O SOA. REPORTS HE WAS TREATED FOR PNEUMONIA BY PCP LAST WEEK AND FINISHED HIS ANTIBIOTICS AND STEROIDS YESTERDAY. HEENT Symptoms (Recalled from RN notes): No Resp Symptoms (Recalled from RN notes): Yes Skin Symptoms (Recalled from RN notes): No MS Symptoms (Recalled from RN notes): No Functional Status (Recalled from RN notes): WNL - History of Present Illness Provider Complaint: Patient states that he was recently seen and treated by his PCP for pneumonia States that he finished his antibiotics and steriods yesterday and today he is clearing his throat and feels like at times he cant get a good
[2020-04-17 17:45] VITALS: BP 120/80; PULSE 80; RESP 22; TEMP 36.7; O2SAT 100
== END 2020-04-17 17:48 | disposition home or self-care (01) ==
PROVIDERS: Emergency Provider Nurse Practitioner; PCP Nurse Practitioner Family
DX: F41.9 Anxiety disorder, unspecified (principal); R06.00 Dyspnea, unspecified; J44.9 Chronic obstructive pulmonary disease, unspecified; I25.10 Atherosclerotic heart disease of native coronary artery without angina pectoris; K21.9 Gastro-esophageal reflux disease without esophagitis; I10 Essential (primary) hypertension; E78.5 Hyperlipidemia, unspecified; F17.210 Nicotine dependence, cigarettes, uncomplicated; Z79.899 Other long term (current) drug therapy
CPT/HCPCS: 71046; 99201

== ENCOUNTER 2020-04-19 08:23 | Day surgery (SDC) | payer MEDICAID, SELFPAY ==
[2020-04-19] VITALS (11 sets, daily range): BP systolic 91–133; BP diastolic 51–81; PULSE 53–65; RESP 16–18; TEMP 36.6; O2SAT 96–100; BMI 22.9
--- NOTE | 2020-04-19 09:00 | IR_ITS ---
APPROVED REPORT Patient Location: Outpatient [employer] Helper: CAITLIN Crouch RT (R) PROCEDURES Left heart catheterization Left ventriculogram Selective coronary angiogram INDICATION Known coronary artery disease, Accelerated angina pectoris Informed consent was obtained prior to the procedure. COMPLICATIONS none Estimated Blood Loss: less than 10 mls TECHNIQUE One percent lidocaine used to anesthetize the right anterior aspect of the wrist. The right radial artery was accessed via the Seldinger technique. A 6 Croatian sheath was placed in the right radial artery. 2.5 mg of verapamil, 800 mcg of nitroglycerin, 1mg Lidocaine and 5000 U Heparin were given through the arterial sheath. The trap catheter was also used to perform left heart catheterization, left ventriculogram and selective coronary angiogram. At the end of the procedure the sheath was removed good hemostasis was achieved using Traclet band, patient was transferred to the postop holding area in stable condition. ANGIOGRAPHIC RESULTS The left main artery Normal The left anterior descending artery Is proximally normal with mild 10% mid vessel luminal irregularities The circumflex artery Is nondominant yet still a large vessel with mid vessel 10 to 20% stenosis The right coronary artery Is a dominant vessel and has stents in the proximal segment which are widely patent with minimal in-stent restenosis. The distal aspect of the stent has a proximal 20% transitioning stenosis while the distal aspects has a 20 to 30% transitioning stenosis The CARO ventriculogram reveals Normal 65% The left ventricular end-diastolic pressure 10 mmHg IMPRESSION Widely patent coronary arteries as described above Normal ejection fraction Normal left ventricular end-diastolic pressure PLAN 1. Medical management Electronically signed by : Marcel Lew, 04/19/2020 12:11:51
[2020-04-19 09:09] LABS: Chloride 104 mmol/L (98-107)
[2020-04-19 09:10] LABS: Potassium 4.2 mmoL/L (3.5-5.1); Sodium 139 mmol/L (136-145)
[2020-04-19 09:11] LABS: Basophils # 0.1 K/mm3 (0-0.2); Basophils % 0.6 % (0.1-2.0); Eosinophils # 0.1 K/mm3 (0.0-0.4); Eosinophils % 1.3 % (0.1-12.0); Hematocrit 37.8 % (42.0-52.0); Lymphocytes # 2.3 K/mm3 (0.7-4.5); Lymphocytes % 28.6 % (10-50); Mean Corpuscular HGB Conc 34.3 g/dL (31.8-35.4); Mean Corpuscular Hemoglobin 33.1 pg (27.0-31.2); Mean Corpuscular Volume 96.4 fl (80-94); Mean Platelet Volume 7.4 fl (7.4-10.4); Monocytes # 0.6 K/mm3 (0.1-1.0); Monocytes % 6.7 % (1.7-9.3); Neutrophils # 5.2 K/mm3 (1.8-7.8); Neutrophils % 62.9 % (37.0-80.0); Platelet Count 243 K/mm3 (142-424); Red Blood Count 3.92 M/mm3 (4.60-6.20); Red Cell Distribution Width 13.3 % (11.5-17.5); White Blood Count 8.2 K/mm3 (4.8-10.8)
[2020-04-19 09:13] LABS: Anion Gap 11.2 mEq/L (5-15); Blood Urea Nitrogen 8 mg/dl (9-20); Calcium 9.4 mg/dl (8.4-10.2); Carbon Dioxide 28 mmol/L (22.0-30.0); Creatinine Clearance Estimated 127 mL/min (50-200); Estimated Glomerular Filt Rate 104 ml/min (>60); GFR (African American) 125 ML/MIN (>60); Glucose 113 mg/dl (74-100)
[2020-04-19 09:33] LABS: Coronavirus 19 IgG Antibody Negative (Negative); Coronavirus 19 IgM Antibody Negative (Negative)
== END 2020-04-19 14:26 | disposition home or self-care (01) ==
LOC: CATHLAB 08:24
PROVIDERS: PCP Nurse Practitioner Family; Visit Provider Internal Medicine
DX: I25.118 Atherosclerotic heart disease of native coronary artery with other forms of angina pectoris (principal); E78.2 Mixed hyperlipidemia; I11.9 Hypertensive heart disease without heart failure; I70.203 Unspecified atherosclerosis of native arteries of extremities, bilateral legs; J44.9 Chronic obstructive pulmonary disease, unspecified; R06.02 Shortness of breath; T82.855A Stenosis of coronary artery stent, initial encounter; Z95.5 Presence of coronary angioplasty implant and graft; Z72.0 Tobacco use; Z79.01 Long term (current) use of anticoagulants; Z79.82 Long term (current) use of aspirin
CPT/HCPCS: 80048; 85025; 86328; 93458; 99152; C1725; C1769; J1644; Q9967

== ENCOUNTER 2020-04-20 16:58 | Emergency (ER) | payer MEDICAID, SELFPAY ==
--- NOTE | 2020-04-20 17:03 | XR_ITS ---
PROCEDURE: XR CHEST PORTABLE CLINICAL HISTORY: upright, assess for air Shortness of breath COMPARISON: CT [facility] CT CHEST W/O CONTRAST from 05/24/2015 CR XR CHEST 2V from 04/01/2020 CR XR CHEST PORTABLE from 04/07/2020 CR XR CHEST 2V from 04/17/2020 FINDINGS: The cardiomediastinal silhouette and pulmonary vascularity are within normal limits. The lungs are clear without infiltrates, suspicious nodules, or pleural effusions. No acute bony abnormalities. IMPRESSION: No acute findings. Dictated by: Ottoniel Montesinos MD 04/20/2020 17:37 Ottoniel Montesinos MD in [place] 04/20/2020 17:37
[2020-04-20 17:09] VITALS: BP 117/78; PULSE 104; RESP 18; TEMP 37.4; O2SAT 100; BMI 23.1
--- NOTE | 2020-04-20 17:18 | ECG_ITS ---
APPROVED REPORT Exam: Resting ECG HR:99 bpm ECG Measurements Heart Rate 99 AXES NE 144 P 55 QRSd 72 QRS 25 QT 350 T 60 QTc 449 <Conclusion> Normal sinus rhythm Normal ECG Electronically signed by : Jordon Chris, 04/21/2020 06:31:48
--- NOTE | 2020-04-20 17:37 | HMH.EDGENADL ---
ED Disposition Clinical Impression: Suspected COVID-19 virus infection Pneumonia Qualifiers: Pneumonia type: due to unspecified organism Laterality: bilateral Lung location: unspecified part of lung Qualified Code(s): J18.9 - Pneumonia, unspecified organism Disposition: Home, Self-Care Condition on Discharge: Fair Instructions: DI for Atypical Pneumonia, How to Quit Tobacco Products, Preventing the Spread of Coronavirus Discharge Instructions Additional Instructions: You have been evaluated for shortness of breath, diagnosed with pneumonia. Please take Augmentin and azithromycin as prescribed. Please go home and self quarantine for 72 hours. It will take 72 hours before you have results of your COVID-19 test. Follow-up with your primary care doctor. Return to the emergency department if you have any new or worsening symptoms Prescriptions: Amoxicillin/Potassium Clav [Augmentin 875-125 Tablet] 1 tab PO Q12H 7 Days #14 tab Transmission Status: Received by [facility] Azithromycin [Azithromycin 500mg Tab] 500 mg PO DAILY #5 tab Transmission Status: Received by [facility] Referrals: Paul Hui MD [Primary Care Provider] - Ferdinand Church MD [Physician] - Time of Disposition: 19:02 - Critical Care Critical Care Time: No Attestation: On 04/20/20, the high probability of a clinically significant, sudden or life threatening deterioration of the following system(s) required my full and direct attention, intervention and personal management. The time I documented below is in addition to time spent performing reported procedures but includes the following listed in this critical care notation. Medical Decision Making - Medical Records Medical records reviewed: Yes: I reviewed the patient's medical records. - Jose Raul Inquiry Pt receiving controlled substance: No Vital Signs: 04/20/20 17:09 04/20/20 18:50 04/20/20 19:34 Temperature 99.4 F 99.4 F Temperature Source Oral Pulse Rate 92 H Pulse Rate [Right Radial] 104 H 100 H Respiratory Rate 18 15 16 Blood Pressure 118/72 Blood Pressure [Right Arm] 117/78 115/77 Blood Pressure Mean [Right Arm] 91 89 02 Sat by Pulse Oximetry 100 100 Oxygen Delivery Method Room Air Room Air Room Air - Lab Data Lab Results 04/20/20 17:29: VBG pH 7.48 H, VBG pCO2 28.6 L, VBG pO2 169.1 H, VBG HCO3 20.9 L, VBG Total CO2 21.7 L, VBG O2 Saturation 99.0 H, VBG Base Excess -2.6 L 04/20/20 17:32: WBC 13.4 H D, RBC 4.02 L, Hgb 13.2 L, Hct 38.7 L, MCV 96.3 H, MCH 32.9 H, MCHC 34.2, RDW 13.0, Plt Count 270, MPV 8.0, Neut % (Auto) 78.6, Lymph % (Auto) 14.9, [place] % (Auto) 5.7, Eos % (Auto) 0.7, Baso % (Auto) 0.2, Neut # (Auto) 10.5 H, Lymph # (Auto) 2.0, [place] # (Auto) 0.8, Eos # (Auto) 0.1, Baso # (Auto) 0.0 04/20/20 17:32: PT 11.0, INR 1.08, APTT 24.5 04/20/20 17:32: Sodium 136, Potassium 3.7, Chloride 101, Carbon Dioxide 22 D, Anion Gap 16.7 H, BUN 5 L D, Creatinine 0.80, Estimated Creat Clear 128, Estimated GFR 104, Est GFR ( Amer) 125, Glucose 92, Calcium 9.5, Troponin I < 0.01 04/20/20 17:32: D-Dimer 0.59 04/20/20 17:32: SARS-CoV-2 IgG Ab (Rapid) Negative, SARS-CoV-2 IgM Ab (Rapid) Negative Result diagrams: 04/20/20 17:32 04/20/20 17:32 Orders (Tests/Meds): ED MEDICATIONS Discontinued Medications Generic Name Dose Route Start Last Admin Trade Name Freq PRN Reason Stop Dose Admin Amoxicillin/Clavulanate Potassium 1 each 04/20/20 19:06 04/20/20 19:16 Augmentin 500mg Tablet PO 04/20/20 19:07 1 each ONCE ONE Administration Protocol Azithromycin 500 mg 04/20/20 19:03 04/20/20 19:16 Zithromax 250mg Tablet PO 04/20/20 19:04 500 mg ONCE ONE Administration Protocol Belladonna Alkaloids 60 ml 04/20/20 17:34 04/20/20 17:36 Gi Cocktail 60ml Udc PO 04/20/20 17:35 60 ml ONCE ONE Administration Ioversol 70 ml 04/20/20 18:33 04/20/20 18:34 Rad-Optiray 350 100ml Vial IV 04/20/20 18:34 70 ml ONC
[2020-04-20 17:41] LABS: Basophils % 0.2 % (0.1-2.0); Eosinophils # 0.1 K/mm3 (0.0-0.4); Eosinophils % 0.7 % (0.1-12.0); Hematocrit 38.7 % (42.0-52.0); Hemoglobin 13.2 g/dL (14.1-18.0); Lymphocytes % 14.9 % (10-50); Mean Corpuscular HGB Conc 34.2 g/dL (31.8-35.4); Mean Corpuscular Hemoglobin 32.9 pg (27.0-31.2); Mean Corpuscular Volume 96.3 fl (80-94); Monocytes # 0.8 K/mm3 (0.1-1.0); Monocytes % 5.7 % (1.7-9.3); Neutrophils # 10.5 K/mm3 (1.8-7.8); Neutrophils % 78.6 % (37.0-80.0); Platelet Count 270 K/mm3 (142-424); Red Blood Count 4.02 M/mm3 (4.60-6.20); White Blood Count 13.4 K/mm3 (4.8-10.8)
[2020-04-20 17:44] LABS: Chloride 101 mmol/L (98-107); Potassium 3.7 mmoL/L (3.5-5.1); Sodium 136 mmol/L (136-145)
[2020-04-20 17:47] LABS: Anion Gap 16.7 mEq/L (5-15); Blood Urea Nitrogen 5 mg/dl (9-20); Calcium 9.5 mg/dl (8.4-10.2); Carbon Dioxide 22 mmol/L (22.0-30.0); Creatinine Clearance Estimated 128 mL/min (50-200); Estimated Glomerular Filt Rate 104 ml/min (>60); GFR (African American) 125 ML/MIN (>60); Glucose 92 mg/dl (74-100)
--- NOTE | 2020-04-20 17:47 | CT_ITS ---
PROCEDURE: CT ANGIO CHEST CLINCIAL INDICATION: chest pain after heart cath, visualize throat COMPARISON: CT [facility] CT CHEST W/O CONTRAST from 05/24/2015 CR XR CHEST PORTABLE from 04/20/2020 TECHNIQUE: IV Contrast: 70ML OPTIRAY 350 Axial images obtained with sagittal and coronal reformats. All CT scans at the facility use one or more dose reduction, viz: automated exposure control, ma/kV adjustment per patient size (including targeted exams where dose is matched to indication, i.e. head), or iterative reconstruction technique. FINDINGS: HEART AND MEDIASTINAL STRUCTURES: The no evidence of aortic aneurysm or dissection. No evidence of pulmonary embolus. There is a small precarinal lymph node which measures 1.4 cm by 0.8 cm previously 1.1 by 0.6 cm LUNGS AND PLEURAL SPACES: There are patchy areas of infiltrate some of which have a ground-glass density in both lower lobes, inferior aspect of right upper lobe, right middle lobe, and in the lingula. No effusions. No cavitation. BONY STRUCTURES: Mild upper thoracic curvature convex right. UPPER ABDOMEN: The adrenal glands are enlarged right more so than left maintaining an adrenal form shape possibly due to adenomatous involvement. There is a moderate amount of retained colonic feces. There is bilateral gynecomastia ADDITIONAL FINDINGS: No other significant abnormalities. IMPRESSION: 1. No evidence of pulmonary embolus. 2. Patchy bilateral pulmonary infiltrates. Pneumonia/atypical pneumonia / covid 19 considered Dictated by: Ottoniel Montesinos MD 04/21/2020 06:35 Ottoniel Montesinos MD in [place] 04/21/2020 06:35
[2020-04-20 17:49] LABS: Activated Partial Thrombo Time 24.5 seconds (23.6-34.0); INR 1.08 (0.9-1.1)
--- NOTE | 2020-04-20 17:51 | PC.NURSE ---
patient rang out that he couldn't breathe. spo2 sat 94%. assisted patient back to bed, and gave supplemental oxygen at 2l p nc. vss. notified.
[2020-04-20 17:55] LABS: VBG Base Excess -2.6 mmol/L (-2.4-2.3); VBG HCO3 20.9 mmol/L (23-30); VBG PCO2 28.6 mmol/L (35-51); VBG PH 7.48 mmol/L (7.31-7.41); VBG PO2 169.1 mmol/L (28-40); VBG Total CO2 21.7 mmol/L (23-27)
--- NOTE | 2020-04-20 17:57 | PC.NURSE ---
VBG results given to Dr Newman
[2020-04-20 17:59] LABS: Troponin I < 0.01 ng/ml (0.00-0.034)
[2020-04-20 18:06] LABS: D-Dimer 0.59 ug/mL (0.15-8.0)
--- NOTE | 2020-04-20 18:19 | PC.NURSE ---
pt given something to drink per his request. pt refusing to leave monitoring devices on. very agitated, and keeps yelling out. pt updated on plan of care at this time
--- NOTE | 2020-04-20 18:20 | PC.NURSE ---
pt to rad
--- NOTE | 2020-04-20 18:49 | PC.NURSE ---
patient sitting on side of bed. no needs voiced at this time
[2020-04-20 18:50] VITALS: BP 115/77; PULSE 100; RESP 15; O2SAT 100
--- NOTE | 2020-04-20 18:52 | PC.NURSE ---
ct results received. pt placed in isolation at this time
[2020-04-20 19:29] LABS: Coronavirus 19 IgG Antibody Negative (Negative); Coronavirus 19 IgM Antibody Negative (Negative)
[2020-04-20 19:34] VITALS: BP 118/72; PULSE 92; RESP 16; TEMP 37.4; O2SAT 98
[2020-04-22 14:32] LABS: Covid-19 Nasal PCR Sendout Lex Not Detected
== END 2020-04-20 19:37 | disposition home or self-care (01) ==
PROVIDERS: Emergency Provider Emergency Medicine; PCP Emergency Medicine
DX: J18.9 Pneumonia, unspecified organism (principal); Z20.828 Contact with and (suspected) exposure to other viral communicable diseases; F17.210 Nicotine dependence, cigarettes, uncomplicated; K21.9 Gastro-esophageal reflux disease without esophagitis; I10 Essential (primary) hypertension; J44.9 Chronic obstructive pulmonary disease, unspecified; I25.10 Atherosclerotic heart disease of native coronary artery without angina pectoris; E78.5 Hyperlipidemia, unspecified; Z79.899 Other long term (current) drug therapy
CPT/HCPCS: 71045; 71275; 80048; 82803; 84484; 85025; 85378; 85610; 85730; 86328; 93005; 99283; Q9967; U0004

== ENCOUNTER → 2020-05-08 11:15 | Outpatient (CLI) | payer MEDICAID, SELFPAY ==
[2020-05-08 12:10] VITALS: PULSE 68; PULSE 72
== END ==
PROVIDERS: PCP Nurse Practitioner Family; Visit Provider Nurse Practitioner Family
DX: R06.02 Shortness of breath (principal)
CPT/HCPCS: 94060; 94640; 94727; 94729

== ENCOUNTER 2020-06-07 15:42 | Emergency (ER) | payer MEDICAID, SELFPAY ==
[2020-06-07 15:48] VITALS: BP 146/83; PULSE 104; RESP 18; TEMP 37.5; O2SAT 98; BMI 23.1
--- NOTE | 2020-06-07 15:48 | HMH.EDGENADL ---
ED Disposition Clinical Impression: Dysphasia, Laryngeal edema Disposition: Home, Self-Care Condition on Discharge: Good Instructions: DI for Esophageal Dysphagia Additional Instructions: You have been evaluated for difficulty swallowing, cough. There is an area of swelling in your larynx, that could be inflammatory or cancerous. Please follow-up with the ears nose and throat doctors for scope and biopsy. Avoid tobacco use. Return to the emergency department for any new or worsening symptoms. Prescriptions: Omeprazole [Omeprazole 20mg Tab] 20 mg PO DAILY #30 tab Transmission Status: Pending to [facility] Referrals: Hina Chilel APRN [Primary Care Provider] - Real Buenrostro MD [Staff Physician] - Time of Disposition: 17:04 - Critical Care Critical Care Time: No Attestation: On , the high probability of a clinically significant, sudden or life threatening deterioration of the following system(s) required my full and direct attention, intervention and personal management. The time I documented below is in addition to time spent performing reported procedures but includes the following listed in this critical care notation. Medical Decision Making - Medical Records Medical records reviewed: Yes: I reviewed the patient's medical records. - Jose Raul Inquiry Pt receiving controlled substance: No Vital Signs: 06/07/20 15:48 06/07/20 16:22 06/07/20 16:58 Temperature 99.5 F Temperature Source Oral Pulse Rate [Right Radial] 104 H 103 H 86 Respiratory Rate 18 20 20 Blood Pressure [Right Arm] 146/83 H 136/79 127/79 Blood Pressure Mean [Right Arm] 104 98 95 Blood Pressure Source [Right Arm] Automatic Cuff Automatic Cuff Blood Pressure Position [Right Arm] Sitting Sitting 02 Sat by Pulse Oximetry 98 97 98 Oxygen Delivery Method Room Air Orders (Tests/Meds): ED MEDICATIONS Discontinued Medications Generic Name Dose Route Start Last Admin Trade Name Freq PRN Reason Stop Dose Admin Barium Sulfate 355 ml 06/07/20 16:45 06/07/20 16:46 Barium Sulfate(Liquid E-Z-Paque);355ml Bottle PO 06/07/20 16:46 355 ml ONCE ONE Administration Barium Sulfate 135 ml 06/07/20 16:45 06/07/20 16:46 Barium Sulfate (E-Z-Hd 340gm);135ml Bottle PO 06/07/20 16:46 135 ml ONCE ONE Administration Ioversol 75 ml 06/07/20 16:16 06/07/20 16:18 Ioversol-350 (74%) 100ml Vial IV 06/07/20 16:17 75 ml ONCE ONE Administration Protocol Simethicone/Sodium Bicarb/Citric Ac 1 each 06/07/20 16:45 06/07/20 16:46 E-Z-Gasii Effervescent Granules;1pk PO 06/07/20 16:46 1 each ONCE ONE Administration Sodium Chloride 10 ml 06/07/20 16:16 06/07/20 16:18 Sodium Chloride 0.9% 10ml Syr (Rad Only) IV 06/07/20 16:17 10 ml ONCE ONE Administration - CT Data CT Scan: Other Time Received: 17:01 Findings Narrative: CT soft tissue neck IMPRESSION: There is thickening of the posterior and inferior aspect of the aryepiglottic folds with a small area of decreased attenuation at the junction of the folds posteriorly. These findings could be inflammatory or neoplastic. Direct visualization is suggested. Medical Decision Narrative: In summary this is a 49-year-old male with history of tobacco use disorder presenting to the emergency department with dysphagia. Patient clinically stable on arrival. Managing his secretions. Differential diagnoses include laryngeal mass, reflux, GI dysmotility, stricture. Plan to obtain CT soft tissue of the neck and barium swallow. Barium swallow was unremarkable. CT scan of the soft tissues of the neck shows one area of abnormality that could be consistent with inflammatory or neoplastic disease. No large bulky mass. On reassessment patient was able to tolerate oral intake. Was clearing his throat frequently. He will need ENT follow-up for direct visualization and biopsy. Believe this could be done as an outpatient. Patient given referra
--- NOTE | 2020-06-07 15:52 | FL_ITS ---
PROCEDURE: FL BARIUM SWALLOW CLINICAL INDICATION: Hoarseness, dysphagia COMPARISON: No exams were available for comparison TECHNIQUE: In the upright position the patient was observed to swallow barium in both the AP and lateral view. The cervical esophagus was examined under fluoroscopy with images obtained. The patient was then placed prone in the right anterior oblique position and was observed to swallow barium with Valsalva technique . FLUOROSCOPY TIME: 2 minutes and 10 seconds FINDINGS: The esophagus has an unremarkable appearance. No annular constricting lesion polypoid filling defect hiatal hernia or mucosal abnormalities evident. No obstruction apparent. IMPRESSION: Negative barium swallow. Dictated by: Ottoniel Montesinos MD 06/07/2020 16:46 Ottoniel Montesinos MD in [place] 06/07/2020 16:46
--- NOTE | 2020-06-07 15:52 | CT_ITS ---
PROCEDURE: CT SOFT TISSUE NECK W CON CLINICAL HISTORY: dysphagia Feels like airway is closing COMPARISON: No exams were available for comparison TECHNIQUE: Oral Contrast: None IV Contrast: 75 mL Optiray 350 Axial images obtained with sagittal and coronal reformats. All CT scans at the facility use one or more dose reduction, viz: automated exposure control, ma/kV adjustment per patient size (including targeted exams where dose is matched to indication, i.e. head), or iterative reconstruction technique. FINDINGS: The nasopharynx has an unremarkable appearance. The uvula and oral pharynx and epiglottis are unremarkable. There is thickening the posterior and inferior aspect of the aryepiglottic folds at the junction of the a retinoid and cricoid cartilage. At this area there is a small area of decreased attenuation at approximately 6 mm. No adenopathy. No obvious fluid collections. The thyroid gland has an unremarkable appearance. There is scarring in the lung apices. There is mild reversal of the cervical lordosis with mild degenerative disc disease at C5-C6 and C6-C7 and C7-T1. There is mild cervical scoliosis convex left. IMPRESSION: There is thickening of the posterior and inferior aspect of the aryepiglottic folds with a small area of decreased attenuation at the junction of the folds posteriorly. These findings could be inflammatory or neoplastic. Direct visualization is suggested. Dictated by: Ottoniel Montesinos MD 06/07/2020 16:44 Ottoniel Montesinos MD in [place] 06/07/2020 16:44
[2020-06-07 16:22] VITALS: BP 136/79; PULSE 103; RESP 20; O2SAT 97
[2020-06-07 16:58] VITALS: BP 127/79; PULSE 86; RESP 20; O2SAT 98
[2020-06-07 17:21] VITALS: BP 135/85; PULSE 74; RESP 18; TEMP 36.8; O2SAT 99
== END 2020-06-07 17:23 | disposition home or self-care (01) ==
PROVIDERS: Emergency Provider Emergency Medicine; PCP Nurse Practitioner Family
DX: R13.10 Dysphagia, unspecified (principal); R60.0 Localized edema; I10 Essential (primary) hypertension; K21.9 Gastro-esophageal reflux disease without esophagitis; E78.5 Hyperlipidemia, unspecified; J44.9 Chronic obstructive pulmonary disease, unspecified; I25.10 Atherosclerotic heart disease of native coronary artery without angina pectoris; F17.210 Nicotine dependence, cigarettes, uncomplicated; Z87.891 Personal history of nicotine dependence; F10.10 Alcohol abuse, uncomplicated
CPT/HCPCS: 70491; 74220; 99282; Q9967

== ENCOUNTER 2020-06-20 11:09 | Emergency (ER) | payer MEDICAID, SELFPAY ==
[2020-06-20] VITALS (10 sets, daily range): BP systolic 100–143; BP diastolic 70–89; PULSE 72–87; RESP 12–20; TEMP 36.6–36.8; O2SAT 96–100; BMI 22.5
--- NOTE | 2020-06-20 11:06 | ECG_ITS ---
APPROVED REPORT Exam: Resting ECG HR:73 bpm ECG Measurements Heart Rate 73 AXES NV 162 P 63 QRSd 82 QRS 45 QT 378 T 66 QTc 416 Conclusion Normal sinus rhythm with sinus arrhythmia Late R-wave progression Abnormal ECG Electronically signed by : Jordon Chris, 06/20/2020 14:44:42
--- NOTE | 2020-06-20 11:14 | XR_ITS ---
PROCEDURE: XR CHEST 2V CLINICAL HISTORY: chest pa in Smoking history COMPARISON: CR XR CHEST PORTABLE from 04/07/2020 CR XR CHEST 2V from 04/17/[address] ANGIO CHEST from 04/20/2020 CR XR CHEST PORTABLE from 04/20/2020 FINDINGS: The cardiomediastinal silhouette and pulmonary vascularity are within normal limits. The lungs are clear without infiltrates, suspicious nodules, or pleural effusions. A short coronary artery stent is seen. No acute bony abnormalities. IMPRESSION: No acute findings. Dictated by: Dr. Aramis Arzola MD 06/20/2020 12:09 Dr. Aramis Arzola MD in [place] 06/20/2020 12:09
--- NOTE | 2020-06-20 11:28 | HMH.EDCP ---
ED Disposition Clinical Impression: Anxiety, Nonspecific chest pain Disposition: Home, Self-Care Condition on Discharge: Good Instructions: DI for Atypical Chest Pain Referrals: PCP,No [Primary Care Provider] - Marcel Lew MD [Staff Physician] - - Critical Care Critical Care Time: No Attestation: On , the high probability of a clinically significant, sudden or life threatening deterioration of the following system(s) required my full and direct attention, intervention and personal management. The time I documented below is in addition to time spent performing reported procedures but includes the following listed in this critical care notation. Medical Decision Making - Medical Records Medical records reviewed: Yes: I reviewed the patient's medical records. - Jose Raul Inquiry Pt receiving controlled substance: No Vital Signs: 06/20/20 11:09 06/20/20 11:28 06/20/20 11:39 Temperature 98.3 F Temperature Source Oral Pulse Rate 76 Pulse Rate [Radial] 77 75 Respiratory Rate 18 18 Blood Pressure [Right Arm] 143/82 H 130/89 Blood Pressure Mean [Right Arm] 102 102 Blood Pressure Source [Right Arm] Automatic Cuff Automatic Cuff Blood Pressure Position [Right Arm] Sitting Sitting 02 Sat by Pulse Oximetry 100 97 Oxygen Delivery Method Room Air Room Air 06/20/20 12:05 06/20/20 12:35 06/20/20 13:00 Temperature Temperature Source Pulse Rate 83 Pulse Rate [Radial] 87 81 Respiratory Rate 17 12 Blood Pressure [Right Arm] 121/80 112/80 Blood Pressure Mean [Right Arm] 93 90 Blood Pressure Source [Right Arm] Automatic Cuff Blood Pressure Position [Right Arm] Sitting 02 Sat by Pulse Oximetry 98 100 Oxygen Delivery Method Room Air 06/20/20 13:42 06/20/20 14:06 Temperature Temperature Source Pulse Rate Pulse Rate [Radial] 77 78 Respiratory Rate Blood Pressure [Right Arm] 100/75 L 114/74 Blood Pressure Mean [Right Arm] 83 87 Blood Pressure Source [Right Arm] Automatic Cuff Automatic Cuff Blood Pressure Position [Right Arm] Sitting Sitting 02 Sat by Pulse Oximetry 100 98 Oxygen Delivery Method Room Air Room Air - Lab Data Lab Results 06/20/20 11:17: WBC 10.3, RBC 4.22 L, Hgb 13.8 L, Hct 42.3, MCV 100.2 H, MCH 32.7 H, MCHC 32.6, RDW 13.8, Plt Count 260, MPV 7.3 L, Neut % (Auto) 69.3, Lymph % (Auto) 23.2, [place] % (Auto) 5.8, Eos % (Auto) 1.1, Baso % (Auto) 0.6, Neut # (Auto) 7.2, Lymph # (Auto) 2.4, [place] # (Auto) 0.6, Eos # (Auto) 0.1, Baso # (Auto) 0.1 06/20/20 11:17: Sodium 138, Potassium 4.0, Chloride 101, Carbon Dioxide 29, Anion Gap 12.0, BUN 9, Creatinine 0.70, Estimated Creat Clear 151, Estimated GFR 121, Est GFR ( Amer) 146, Glucose 94, Calcium 9.5, Troponin I < 0.01 06/20/20 14:02: Troponin I < 0.01 Result diagrams: 06/20/20 11:17 06/20/20 11:17 Orders (Tests/Meds): ED MEDICATIONS Generic Name Dose Route Start Last Admin Trade Name Freq PRN Reason Stop Dose Admin Sodium Chloride 10 ml 06/20/20 13:37 06/20/20 13:49 Sodium Chloride 0.9% 10ml Vial IV 07/20/20 13:36 10 ml NEEDED PRN Administration to Dilute Lorazepam inj Discontinued Medications Generic Name Dose Route Start Last Admin Trade Name Freq PRN Reason Stop Dose Admin Albuterol/Ipratropium 3 ml 06/20/20 11:39 06/20/20 12:04 Albuterol/Ipratropium 3 Ml Neb IH 06/20/20 11:40 3 ml ONCE ONE Administration Guaifenesin 10 ml 06/20/20 11:43 06/20/20 11:45 Guaifenesin/Dextromethorphan 200mg/20mg 10ml Udc PO 06/20/20 11:44 10 ml ONCE ONE Administration Lorazepam 1 mg 06/20/20 13:37 06/20/20 13:48 Lorazepam 2mg/Ml Vial IV 06/20/20 13:38 1 mg ONCE ONE Administration ORDERS Category Date Time Status Troponin I Q3H Lab 06/20/20 17:15 Ordered - Radiology Data #1 Image(s): Chest Image Reviewed: Yes I reviewed the patient's radiology results, Yes I reviewed the patient's radiology image, Yes I have reviewed radiologist'
[2020-06-20 11:31] LABS: Basophils # 0.1 K/mm3 (0-0.2); Basophils % 0.6 % (0.1-2.0); Eosinophils # 0.1 K/mm3 (0.0-0.4); Eosinophils % 1.1 % (0.1-12.0); Hematocrit 42.3 % (42.0-52.0); Hemoglobin 13.8 g/dL (14.1-18.0); Lymphocytes # 2.4 K/mm3 (0.7-4.5); Lymphocytes % 23.2 % (10-50); Mean Corpuscular HGB Conc 32.6 g/dL (31.8-35.4); Mean Corpuscular Hemoglobin 32.7 pg (27.0-31.2); Mean Corpuscular Volume 100.2 fl (80-94); Mean Platelet Volume 7.3 fl (7.4-10.4); Monocytes # 0.6 K/mm3 (0.1-1.0); Monocytes % 5.8 % (1.7-9.3); Neutrophils # 7.2 K/mm3 (1.8-7.8); Neutrophils % 69.3 % (37.0-80.0); Platelet Count 260 K/mm3 (142-424); Red Blood Count 4.22 M/mm3 (4.60-6.20); Red Cell Distribution Width 13.8 % (11.5-17.5); White Blood Count 10.3 K/mm3 (4.8-10.8)
[2020-06-20 11:33] LABS: Chloride 101 mmol/L (98-107); Sodium 138 mmol/L (136-145)
[2020-06-20 11:36] LABS: Blood Urea Nitrogen 9 mg/dl (9-20); Calcium 9.5 mg/dl (8.4-10.2); Carbon Dioxide 29 mmol/L (22.0-30.0); Creatinine Clearance Estimated 151 mL/min (50-200); Estimated Glomerular Filt Rate 121 ml/min (>60); GFR (African American) 146 ML/MIN (>60); Glucose 94 mg/dl (74-100)
[2020-06-20 11:53] LABS: Troponin I < 0.01 ng/ml (0.00-0.034)
--- NOTE | 2020-06-20 11:53 | PC.NURSE ---
RESP HERE DOING BREATHING TX
--- NOTE | 2020-06-20 13:23 | PC.NURSE ---
DR LOZOYA JUST SPOKE WITH RAHEEM IN CARDIOLOGY
[2020-06-20 14:34] LABS: Troponin I < 0.01 ng/ml (0.00-0.034)
== END 2020-06-20 14:52 | disposition home or self-care (01) ==
PROVIDERS: Emergency Provider Emergency Medicine
DX: F41.9 Anxiety disorder, unspecified (principal); R07.89 Other chest pain; J44.9 Chronic obstructive pulmonary disease, unspecified; K21.9 Gastro-esophageal reflux disease without esophagitis; E78.5 Hyperlipidemia, unspecified; I10 Essential (primary) hypertension; F17.210 Nicotine dependence, cigarettes, uncomplicated; Z79.899 Other long term (current) drug therapy
CPT/HCPCS: 71046; 80048; 84484; 85025; 93005; 96375; 99283

== ENCOUNTER 2020-06-22 10:41 | Emergency (ER) | payer MEDICAID, SELFPAY ==
--- NOTE | 2020-06-22 10:37 | ECG_ITS ---
APPROVED REPORT Exam: Resting ECG HR:98 bpm ECG Measurements Heart Rate 98 AXES NH 148 P 62 QRSd 70 QRS 22 QT 372 T 57 QTc 474 Conclusion Normal sinus rhythm Normal ECG Electronically signed by : Jordon Chris, 06/22/2020 21:34:08
[2020-06-22 10:41] VITALS: BP 156/86; PULSE 90; RESP 18; TEMP 36.6; O2SAT 99; BMI 23.7
--- NOTE | 2020-06-22 10:43 | XR_ITS ---
PROCEDURE: XR CHEST PORTABLE CLINICAL HISTORY: chest pain COMPARISON: CR XR CHEST 2V from 04/17/[address] ANGIO CHEST from 04/20/2020 CR XR CHEST PORTABLE from 04/20/2020 CR XR CHEST 2V from 06/20/2020 FINDINGS: The cardiomediastinal silhouette and pulmonary vascularity are within normal limits. The lungs are clear without infiltrates, suspicious nodules, or pleural effusions. No acute bony abnormalities. IMPRESSION: No acute findings. Dictated by: Ottoniel Montesinos MD 06/22/2020 12:38 Ottoniel Montesinos MD in [place] 06/22/2020 12:38
--- NOTE | 2020-06-22 10:43 | HMH.EDCP ---
ED Disposition Clinical Impression: Anxiety Chest pain Qualifiers: Chest pain type: unspecified Qualified Code(s): R07.9 - Chest pain, unspecified Disposition: Home, Self-Care Condition on Discharge: Good Instructions: DI for Atypical Chest Pain, DI for Anxiety -- Adult Referrals: Hina Chilel APRN [Primary Care Provider] - 7-14 days - Critical Care Critical Care Time: No Attestation: On , the high probability of a clinically significant, sudden or life threatening deterioration of the following system(s) required my full and direct attention, intervention and personal management. The time I documented below is in addition to time spent performing reported procedures but includes the following listed in this critical care notation. Medical Decision Making - Medical Records Medical records reviewed: Yes: I reviewed the patient's medical records. - Jose Raul Inquiry Pt receiving controlled substance: No Vital Signs: 06/22/20 10:41 Temperature 97.8 F Temperature Source Oral Pulse Rate [Left Radial] 90 Respiratory Rate 18 Blood Pressure [Right Arm] 156/86 H Blood Pressure Mean [Right Arm] 109 Blood Pressure Source [Right Arm] Automatic Cuff Blood Pressure Position [Right Arm] Sitting 02 Sat by Pulse Oximetry 99 Oxygen Delivery Method Room Air - Lab Data Lab results reviewed: Yes: I reviewed the patient's lab results. Lab Results 06/22/20 10:50: WBC 9.1, RBC 4.03 L, Hgb 12.7 L, Hct 39.6 L, MCV 98.3 H, MCH 31.6 H, MCHC 32.1, RDW 13.3, Plt Count 250, MPV 7.6, Neut % (Auto) 72.1, Lymph % (Auto) 20.7, [place] % (Auto) 5.8, Eos % (Auto) 0.9, Baso % (Auto) 0.4, Neut # (Auto) 6.6, Lymph # (Auto) 1.9, [place] # (Auto) 0.5, Eos # (Auto) 0.1, Baso # (Auto) 0.0 06/22/20 10:50: Sodium 137, Potassium 3.5, Chloride 102, Carbon Dioxide 25, Anion Gap 13.5, BUN 8 L, Creatinine 0.70, Estimated Creat Clear 151, Estimated GFR 121, Est GFR ( Amer) 146, Glucose 109 H, Calcium 9.9, Total Bilirubin 0.8, AST 34, ALT 19, Alkaline Phosphatase 74, Troponin I < 0.01, Total Protein 7.6, Albumin 4.6, Globulin 3.0, Albumin/Globulin Ratio 1.5, Lipase 38 Result diagrams: 06/22/20 10:50 06/22/20 10:50 Orders (Tests/Meds): ED MEDICATIONS Discontinued Medications Generic Name Dose Route Start Last Admin Trade Name Freq PRN Reason Stop Dose Admin Aspirin 324 mg 06/22/20 10:57 06/22/20 10:58 Aspirin 81mg Chewable Tablet PO 06/22/20 10:58 324 mg ONCE ONE Administration Nitroglycerin 0.4 mg 06/22/20 10:57 06/22/20 10:58 Nitroglycerin 0.4mg Sl Tablet SL 06/22/20 10:58 1 tab ONCE ONE Administration ORDERS Category Date Time Status XR chest portable Stat Exams 06/22/20 10:43 Taken Troponin I Q3H Lab 06/22/20 13:45 Ordered Troponin I Q3H Lab 06/22/20 16:45 Ordered ECG Request by /Billy Stat Y 06/22/20 10:43 Ordered - Radiology Data #1 Image(s): Chest Image Reviewed: Yes I reviewed the patient's radiology image Preliminary Findings: Normal/NAD - ECG Data Tracing #1 EKG at [address] segment elevation or depression. Normal sinus rhythm with a rate of 98. No hyperacute T waves. Normal intervals. EKG interpreted by me. Medical Decision Narrative: Pain, negative troponin which is now over the course of 2 days remaining negative. Chest x-ray shows no signs of pneumonia, pneumothorax, widened mediastinum. HEART score 3. Suspect GI cause versus possible musculoskeletal etiology or anxiety. Advise follow-up with primary care with whom I discussed this case. Pat plans on helping the patient with his anxiety control and following up on his chest pain. Chest Pain HPI - General Stated Complaint: chest pain Time Seen by Provider: 06/22/20 10:43 Source of Information: Patient, Medical Record Limitations: No Limitations - History of Present Illness HPI narrative: This is a 49-year-old male with a past medical history significant for hypertension, hyperlipide
[2020-06-22 10:46] VITALS: BMI 23.7
[2020-06-22 11:16] LABS: Basophils % 0.4 % (0.1-2.0); Eosinophils # 0.1 K/mm3 (0.0-0.4); Eosinophils % 0.9 % (0.1-12.0); Hematocrit 39.6 % (42.0-52.0); Hemoglobin 12.7 g/dL (14.1-18.0); Lymphocytes # 1.9 K/mm3 (0.7-4.5); Lymphocytes % 20.7 % (10-50); Mean Corpuscular HGB Conc 32.1 g/dL (31.8-35.4); Mean Corpuscular Hemoglobin 31.6 pg (27.0-31.2); Mean Corpuscular Volume 98.3 fl (80-94); Mean Platelet Volume 7.6 fl (7.4-10.4); Monocytes # 0.5 K/mm3 (0.1-1.0); Monocytes % 5.8 % (1.7-9.3); Neutrophils # 6.6 K/mm3 (1.8-7.8); Neutrophils % 72.1 % (37.0-80.0); Platelet Count 250 K/mm3 (142-424); Red Blood Count 4.03 M/mm3 (4.60-6.20); Red Cell Distribution Width 13.3 % (11.5-17.5); White Blood Count 9.1 K/mm3 (4.8-10.8)
[2020-06-22 11:23] LABS: Chloride 102 mmol/L (98-107); Potassium 3.5 mmoL/L (3.5-5.1); Sodium 137 mmol/L (136-145)
[2020-06-22 11:25] LABS: Blood Urea Nitrogen 8 mg/dl (9-20); Creatinine Clearance Estimated 151 mL/min (50-200); Estimated Glomerular Filt Rate 121 ml/min (>60); GFR (African American) 146 ML/MIN (>60)
[2020-06-22 11:26] LABS: Alanine Aminotransferase 19 U/L (12-78); Albumin Level 4.6 g/dl (3.5-5.0); Albumin/Globulin Ratio 1.5 (1.1-1.8); Alkaline Phosphatase 74 U/L (38-126); Anion Gap 13.5 mEq/L (5-15); Aspartate Amino Transferase 34 U/L (17-59); Bilirubin,Total 0.8 mg/dl (0.2-1.3); Calcium 9.9 mg/dl (8.4-10.2); Carbon Dioxide 25 mmol/L (22.0-30.0); Glucose 109 mg/dl (74-100); Lipase 38 U/L (23-300); Total Protein,Serum 7.6 g/dl (6.3-8.2)
[2020-06-22 11:39] LABS: Troponin I < 0.01 ng/ml (0.00-0.034)
[2020-06-22 11:58] VITALS: BP 142/98; PULSE 85; RESP 20; O2SAT 93
[2020-06-22 12:15] VITALS: BP 142/88; PULSE 88; RESP 19; TEMP 36.6; O2SAT 100
== END 2020-06-22 12:16 | disposition home or self-care (01) ==
PROVIDERS: Emergency Provider Emergency Medicine; PCP Nurse Practitioner Family
DX: F41.9 Anxiety disorder, unspecified (principal); R07.9 Chest pain, unspecified; I25.10 Atherosclerotic heart disease of native coronary artery without angina pectoris; K21.9 Gastro-esophageal reflux disease without esophagitis; I10 Essential (primary) hypertension; E78.5 Hyperlipidemia, unspecified; J44.9 Chronic obstructive pulmonary disease, unspecified; F17.210 Nicotine dependence, cigarettes, uncomplicated; Z79.899 Other long term (current) drug therapy
CPT/HCPCS: 71045; 80053; 83690; 84484; 85025; 93005; 99283

== ENCOUNTER → 2020-06-28 12:58 | Outpatient (CLI) | payer MEDICAID, SELFPAY ==
[2020-06-28 13:40] LABS: Basophils % 0.2 % (0.1-2.0); Eosinophils % 0.4 % (0.1-12.0); Hematocrit 45.1 % (42.0-52.0); Hemoglobin 14.3 g/dL (14.1-18.0); Lymphocytes # 1.7 K/mm3 (0.7-4.5); Lymphocytes % 22.1 % (10-50); Mean Corpuscular HGB Conc 31.6 g/dL (31.8-35.4); Mean Corpuscular Volume 101.1 fl (80-94); Mean Platelet Volume 7.8 fl (7.4-10.4); Monocytes # 0.4 K/mm3 (0.1-1.0); Monocytes % 5.1 % (1.7-9.3); Neutrophils # 5.5 K/mm3 (1.8-7.8); Neutrophils % 72.1 % (37.0-80.0); Platelet Count 229 K/mm3 (142-424); Red Blood Count 4.47 M/mm3 (4.60-6.20); White Blood Count 7.6 K/mm3 (4.8-10.8)
[2020-06-28 14:24] LABS: Alanine Aminotransferase 20 U/L (12-78); Albumin Level 4.5 g/dl (3.5-5.0); Albumin/Globulin Ratio 1.6 (1.1-1.8); Alkaline Phosphatase 74 U/L (38-126); Anion Gap 14.9 mEq/L (5-15); Aspartate Amino Transferase 29 U/L (17-59); Bilirubin,Total 0.6 mg/dl (0.2-1.3); Blood Urea Nitrogen 6 mg/dl (9-20); Calcium 10.3 mg/dl (8.4-10.2); Carbon Dioxide 27 mmol/L (22.0-30.0); Chloride 104 mmol/L (98-107); Estimated Glomerular Filt Rate 121 ml/min (>60); GFR (African American) 146 ML/MIN (>60); Globulin 2.9 g/dL (1.3-3.2); Glucose 111 mg/dl (74-100); Potassium 4.9 mmoL/L (3.5-5.1); Sodium 141 mmol/L (136-145); Total Protein,Serum 7.4 g/dl (6.3-8.2)
[2020-06-28 15:11] LABS: Coronavirus 19 IgG Antibody Negative (Negative); Coronavirus 19 IgM Antibody Negative (Negative)
== END ==
PROVIDERS: Visit Provider Otolaryngology
DX: Z01.818 Encounter for other preprocedural examination (principal); J38.1 Polyp of vocal cord and larynx
CPT/HCPCS: 36415; 80053; 85025; 86328

== ENCOUNTER 2020-06-29 06:57 | Day surgery (SDC) | payer MEDICAID, SELFPAY ==
[2020-06-28 15:14] VITALS: BMI 23.7
[2020-06-29] VITALS (13 sets, daily range): BP systolic 113–152; BP diastolic 73–89; PULSE 68–100; RESP 13–25; TEMP 36.1–36.4; O2SAT 99–100
--- NOTE | 2020-06-29 09:05 | HMH.OPNOTE ---
Date of procedure: 06/29/20 Pre-op Diagnosis:: 1. Polypoid lesion right arytenoid 2. Polypoid lesion uvula Post-op Diagnosis:: same Procedure performed:: 1. Microlaryngoscopy with biopsy of polyp right arytenoid 2. Partial uvulectomy with repair Surgeon:: Real Buenrostro MD SUSTAINABILITY EXECUTIVE DIRECTOR:: Aram Sheffield Anesthesia: GETA Estimated blood loss (mL): 5 Operative findings:: same Operative note:: With the patient under general anesthesia maintained with an oral endotracheal tube the SlimLine anterior commissure laryngoscope was used in the larynx and hypopharynx examined. The vocal cords and the glottis were perfectly normal. There was some polypoid thickening of the right arytenoid, the left arytenoid was normal. A biopsy was taken of the right arytenoid and submitted. Bleeding was stopped with topical epinephrine cottonoids. The patient was then repositioned and a Daniel Dany gag was inserted, there was a polypoid lesion involving the lower half of the uvula. Using the harmonic scalpel the polypoid lesion was removed in entirety and a partial uvulectomy was done. Bleeding was stopped with bipolar cautery. Blood loss for all the procedure was less than 5 cc. The uvula was then repaired with 2-0 Vicryl. All the bleeding was stopped. The patient tolerated the procedure well and was sent to recovery in good general condition. Real Buenrostro MD Condition: stable Disposition: PACU Complications:: none
--- NOTE | 2020-06-29 09:13 | HMH.ANESCL ---
[facility] Anesthesia Checklist - Patient Identification Patient Identification: Arm Band - Structural Data Admitted From: Home Planned Operative Procedure/s: Microlaryngoscopy, Uvulectomy Consent for Planned Operative Procedure(s) Verified: Yes Verified Documents: Surgical Consent, History and Physical - NPO Status Verified Time NPO: 00:00 - Additional verifications Anesthesia Reactions: No Hx Blood Transfusions: No Blood Transfusion Reaction: No - Airway Assessment C-Spine Mobility Assessed: Yes (mp2) TMJ Mobility Assessed: Yes Dentition: Edentulous - Neurological Assessment Level of Consciousness: Awake, Alert - Anesthesia Plan Anesthesia Risk discussed: Yes Anesthesia Plan: Verified ASA Class: III Anesthesia Type: General [facility] History I have reviewed the patient's past medical history: Yes Medical History: Reports:: Anxiety, Chronic Obstructive Pulmonary Disease (COPD), Coronary Artery Disease, Gastroesophageal Reflux Disease(GERD), Hiatal Hernia, Hyperlipidemia, Hypertension Denies:: Cancer, Diabetes Mellitus Type 1, Diabetes Mellitus Type 2, Internal Pacemaker, MRSA, Seizures *Have you ever received a pneumonia vaccine?: No *Have you received a flu vaccine this season?: No Other Medical History: Reports: Other. Denies: Blood Transfusion Reaction Anesthesia experience/problems:: nac Other Surgeries: Yes: Cardiac Catheterization, Coronary Stent. No: Pacemaker Amputation: No Fractures: Yes (LEFT FOOT) - *Social History Last grade of school completed: 7th or 8th Smoking Status: Current every day smoker Tobacco Type: cigarettes # Packs/Day (cigarettes): 2 Alcohol Intake: never Alcohol Intake Frequency:: 3 or more drinks per day Substance Use Type: denies use *Occupational Status:: unemployed Housing: house Household Members: family *Travel in the last 8 weeks: None - Psychiatric History Pschychiatric History:: Reports:: Anxiety Family Hx:: Asthma, Cancer, Coronary Artery Disease, Diabetes, Heart Attack, Hypertension, Alcoholism
--- NOTE | 2020-06-29 09:14 | HMH.ANESI ---
[facility] Anesthesia Record Part I Intake, IV Amount: 1,000 Estimated blood loss (mL): 5 Urine output (mL): 0 Blood Pressure: 129/84 SaO2: 100 Pulse Rate: 96 Respiratory Rate: 16 Temperature: 97 F Patient is:: Drowsy, Stable Stable to PACU at:: 09:10
--- NOTE | 2020-06-29 15:35 | P.PN_ITS ---
[facility] Anesthesia Record Part II Discharge Time: 09:52 Destination: Surgical Day Care (OP Surgery) PACU nurse assessment reviewed?: Yes Patient Condition:: Good Anesthesia Complications:: None Swallowing reflex intact?: Yes Cyanosis?: No Blood Pressure: 132/75 Pulse Rate: 68 Temperature: 97.5 F Mental Status: Alert & Oriented Pain level:: 5 Nausea and/or vomitting:: None Intake, IV Amount: 0
== END 2020-06-29 10:40 | disposition home or self-care (01) ==
LOC: OR 06:58
PROVIDERS: PCP Nurse Practitioner Family; Visit Provider Otolaryngology
PROC: (CPT 42140; principal; 2020-06-29 08:30)
DX: J38.1 Polyp of vocal cord and larynx (principal); K13.79 Other lesions of oral mucosa; J44.9 Chronic obstructive pulmonary disease, unspecified; K21.9 Gastro-esophageal reflux disease without esophagitis; I25.10 Atherosclerotic heart disease of native coronary artery without angina pectoris; E78.5 Hyperlipidemia, unspecified; I10 Essential (primary) hypertension; F41.9 Anxiety disorder, unspecified; Z72.0 Tobacco use; Z95.818 Presence of other cardiac implants and grafts; Z79.82 Long term (current) use of aspirin; Z79.899 Other long term (current) drug therapy
CPT/HCPCS: 31536; 42140; 96374; 96375; J2405

== ENCOUNTER → 2020-07-04 13:10 | Outpatient (CLI) | payer MEDICAID, SELFPAY ==
--- NOTE | 2020-07-04 13:10 | CT_ITS ---
PROCEDURE: CT CHEST WO CON CLINICAL INDICATION: dysphagia cough, soa, pneumonia 2-3 months ago surgery 06/29/20 to remove polyp from throat COMPARISON: CT CT ANGIO CHEST from 04/20/2020 TECHNIQUE: Axial images obtained with sagittal and coronal reformats. All CT scans at the facility use one or more dose reduction, viz: automated exposure control, ma/kV adjustment per patient size (including targeted exams where dose is matched to indication, i.e. head), or iterative reconstruction technique. FINDINGS: HEART AND MEDIASTINAL STRUCTURES: No mediastinal or hilar mass or adenopathy is evident. Coronary artery calcifications and/or stents noted. There is gynecomastia. LUNGS AND PLEURAL SPACES: There is mild biapical scarring with COPD changes. Calcified granulomas present in the lingula. No lobar consolidation or collapse is evident. The previously noted bilateral pneumonia has resolved. BONY STRUCTURES: No acute bony abnormalities apparent. UPPER ABDOMEN: There is some mild nodularity of the right adrenal gland nonspecific not significantly changed which may be due to adenomatous involvement. ADDITIONAL FINDINGS: No other significant abnormalities. IMPRESSION: Interval improvement in the bilateral pneumonia. Changes of COPD with no acute finding. Dictated by: Ottoniel Montesinos MD 07/05/2020 14:09 Ottoniel Montesinos MD in [place] 07/05/2020 14:09
== END ==
PROVIDERS: PCP Nurse Practitioner Family; Visit Provider Otolaryngology
DX: R13.10 Dysphagia, unspecified (principal); J33.0 Polyp of nasal cavity; R49.0 Dysphonia
CPT/HCPCS: 71250

== ENCOUNTER → 2020-10-20 17:21 | Outpatient (CLI) | payer MEDICAID, SELFPAY ==
[2020-10-20 17:59] LABS: Basophils % 0.4 % (0.1-2.0); Eosinophils % 0.5 % (0.1-12.0); Hematocrit 41.6 % (42.0-52.0); Lymphocytes # 2.3 K/mm3 (0.7-4.5); Lymphocytes % 26.6 % (10-50); Mean Corpuscular HGB Conc 33.6 g/dL (31.8-35.4); Mean Corpuscular Hemoglobin 33.9 pg (27.0-31.2); Mean Corpuscular Volume 100.9 fl (80-94); Mean Platelet Volume 8.7 fl (7.4-10.4); Monocytes # 0.5 K/mm3 (0.1-1.0); Monocytes % 5.4 % (1.7-9.3); Neutrophils # 5.8 K/mm3 (1.8-7.8); Neutrophils % 67.2 % (37.0-80.0); Platelet Count 202 K/mm3 (142-424); Red Blood Count 4.12 M/mm3 (4.60-6.20); Red Cell Distribution Width 13.6 % (11.5-17.5); White Blood Count 8.7 K/mm3 (4.8-10.8)
[2020-10-20 18:07] LABS: Alanine Aminotransferase 17 U/L (12-78); Albumin/Globulin Ratio 1.7 (1.1-1.8); Alkaline Phosphatase 69 U/L (38-126); Anion Gap 16.4 mEq/L (5-15); Aspartate Amino Transferase 27 U/L (17-59); Bilirubin,Total 0.7 mg/dl (0.2-1.3); Blood Urea Nitrogen 13 mg/dl (9-20); Calcium 9.9 mg/dl (8.4-10.2); Carbon Dioxide 24 mmol/L (22.0-30.0); Chloride 105 mmol/L (98-107); Chol/HDL Ratio 3.6 (1-3.5); Cholesterol 197 mg/dl (140-200); Estimated Glomerular Filt Rate 90 ml/min (>60); GFR (African American) 109 ML/MIN (>60); Glucose 99 mg/dl (74-100); HDL Cholesterol 54 mg/dl (40-60); Potassium 4.4 mmoL/L (3.5-5.1); Sodium 141 mmol/L (136-145); Triglycerides 203 mg/dl (30-150); VLDL Cholesterol 41 mg/dL (0-40)
[2020-10-20 18:19] LABS: Direct LDL Cholesterol 93.66 mg/dL (100-129)
[2020-10-20 18:25] LABS: 25-OH Vitamin D, Total 20.2 ng/mL (30-100); T4 (Thyroxine) 7.4 ug/dl (5.53-11.0)
[2020-10-20 18:38] LABS: Thyroid Stimulating Hormone 0.91 uIU/mL (0.465-4.68)
== END ==
PROVIDERS: Visit Provider Nurse Practitioner Family
DX: I10 Essential (primary) hypertension (principal); E78.5 Hyperlipidemia, unspecified; J44.9 Chronic obstructive pulmonary disease, unspecified; E55.9 Vitamin D deficiency, unspecified
CPT/HCPCS: 80053; 80061; 82306; 84436; 84443; 85025

== ENCOUNTER → 2021-03-05 14:06 | Outpatient (CLI) | payer MEDICAID, SELFPAY ==
[2021-03-05 14:21] LABS: Basophils % 0.7 % (0.1-2.0); Eosinophils # 0.1 K/mm3 (0.0-0.4); Eosinophils % 1.3 % (0.1-12.0); Hematocrit 37.6 % (42.0-52.0); Hemoglobin 13.2 g/dL (14.1-18.0); Lymphocytes # 2.1 K/mm3 (0.7-4.5); Lymphocytes % 36.5 % (10-50); Mean Corpuscular Volume 97.2 fl (80-94); Mean Platelet Volume 8.1 fl (7.4-10.4); Monocytes # 0.5 K/mm3 (0.1-1.0); Monocytes % 8.6 % (1.7-9.3); Neutrophils # 3.1 K/mm3 (1.8-7.8); Neutrophils % 52.9 % (37.0-80.0); Platelet Count 160 K/mm3 (142-424); Red Blood Count 3.87 M/mm3 (4.60-6.20); Red Cell Distribution Width 13.8 % (11.5-17.5); White Blood Count 5.8 K/mm3 (4.8-10.8)
[2021-03-05 14:35] LABS: Chloride 109 mmol/L (98-107)
[2021-03-05 14:36] LABS: Potassium 4.1 mmoL/L (3.5-5.1); Sodium 142 mmol/L (136-145)
[2021-03-05 14:39] LABS: Anion Gap 11.1 mEq/L (5-15); Blood Urea Nitrogen 8 mg/dl (9-20); Calcium 8.8 mg/dl (8.4-10.2); Carbon Dioxide 26 mmol/L (22.0-30.0); Estimated Glomerular Filt Rate 90 ml/min (>60); GFR (African American) 109 ML/MIN (>60); Glucose 86 mg/dl (74-100)
[2021-03-05 14:50] LABS: NT Pro Brain Natriuretic Pep. 114 pg/mL (0-125)
[2021-03-05 14:54] LABS: Troponin I < 0.01 ng/ml (0.00-0.034)
== END ==
PROVIDERS: Visit Provider Physician Assistant
DX: R06.00 Dyspnea, unspecified (principal); R07.89 Other chest pain; R60.9 Edema, unspecified
CPT/HCPCS: 36415; 80048; 83880; 84484; 85025

== ENCOUNTER → 2021-04-27 16:43 | Outpatient (CLI) | payer MEDICAID, SELFPAY ==
[2021-04-27 18:16] LABS: Alanine Aminotransferase 17 U/L (12-78); Albumin Level 4.4 g/dl (3.5-5.0); Albumin/Globulin Ratio 1.6 (1.1-1.8); Alkaline Phosphatase 70 U/L (38-126); Anion Gap 13.4 mEq/L (5-15); Aspartate Amino Transferase 28 U/L (17-59); Bilirubin,Total 0.7 mg/dl (0.2-1.3); Blood Urea Nitrogen 9 mg/dl (9-20); Calcium 9.3 mg/dl (8.4-10.2); Carbon Dioxide 25 mmol/L (22.0-30.0); Chloride 106 mmol/L (98-107); Chol/HDL Ratio 4.4 (1-3.5); Cholesterol 192 mg/dl (140-200); Estimated Glomerular Filt Rate 103 ml/min (>60); GFR (African American) 125 ML/MIN (>60); Globulin 2.7 g/dL (1.3-3.2); Glucose 90 mg/dl (74-100); HDL Cholesterol 44 mg/dl (40-60); Potassium 4.4 mmoL/L (3.5-5.1); Sodium 140 mmol/L (136-145); Total Protein,Serum 7.1 g/dl (6.3-8.2); Triglycerides 311 mg/dl (30-150); VLDL Cholesterol 62 mg/dL (0-40)
[2021-04-27 18:28] LABS: Direct LDL Cholesterol 87.89 mg/dL (100-129)
[2021-04-27 18:30] LABS: Creatinine,Urine Random 19 mg/dL (Not Estab.)
[2021-04-27 18:32] LABS: Amphetamine/Metha Screen,Urine Negative ng/ml (<1000); Benzodiazepines Screen,Urine Negative ng/ml (<200)
[2021-04-27 18:33] LABS: Barbiturates Screen,Urine Negative ng/ml (<200)
[2021-04-27 18:34] LABS: 25-OH Vitamin D, Total 22.8 ng/mL (30-100); Methadone Screen,Urine Negative ng/ml (<300); Microalbumin < 6.000 mg/L (0-16.7); T4 (Thyroxine) 6.9 ug/dl (5.53-11.0)
[2021-04-27 18:35] LABS: Cannabinoid Screen,Urine Negative ng/ml (<50); Cocaine Screen,Urine Negative ng/ml (<300)
[2021-04-27 18:36] LABS: Opiate Screen,Urine Negative ng/ml (<300); Phencyclidine Screen,Urine Negative ng/ml (<25)
[2021-04-27 18:37] LABS: Basophils % 0.7 % (0.1-2.0); Eosinophils # 0.1 K/mm3 (0.0-0.4); Eosinophils % 1.5 % (0.1-12.0); Hematocrit 41.5 % (42.0-52.0); Hemoglobin 13.8 g/dL (14.1-18.0); Lymphocytes # 1.7 K/mm3 (0.7-4.5); Lymphocytes % 29.5 % (10-50); Mean Corpuscular HGB Conc 33.2 g/dL (31.8-35.4); Mean Corpuscular Hemoglobin 34.8 pg (27.0-31.2); Mean Corpuscular Volume 104.9 fl (80-94); Mean Platelet Volume 9.4 fl (7.4-10.4); Monocytes # 0.3 K/mm3 (0.1-1.0); Monocytes % 5.5 % (1.7-9.3); Neutrophils # 3.7 K/mm3 (1.8-7.8); Neutrophils % 62.8 % (37.0-80.0); Platelet Count 207 K/mm3 (142-424); Red Blood Count 3.95 M/mm3 (4.60-6.20); Red Cell Distribution Width 14.1 % (11.5-17.5); White Blood Count 5.8 K/mm3 (4.8-10.8)
[2021-04-27 18:48] LABS: Prostate Specific Ag Screen 0.3 ng/ml (0.0-4.0); Thyroid Stimulating Hormone 0.97 uIU/mL (0.465-4.68)
[2021-04-27 19:50] LABS: Hemoglobin A1C 5.6 % (4.0-6.0)
== END ==
PROVIDERS: Visit Provider Nurse Practitioner Family
DX: I25.10 Atherosclerotic heart disease of native coronary artery without angina pectoris (principal); I11.9 Hypertensive heart disease without heart failure; E78.5 Hyperlipidemia, unspecified; J44.9 Chronic obstructive pulmonary disease, unspecified; R53.83 Other fatigue; R73.03 Prediabetes; E55.9 Vitamin D deficiency, unspecified; M54.9 Dorsalgia, unspecified; F17.200 Nicotine dependence, unspecified, uncomplicated; Z79.899 Other long term (current) drug therapy; Z12.5 Encounter for screening for malignant neoplasm of prostate
CPT/HCPCS: 80053; 80061; 80305; 82043; 82306; 82570; 83036; 84436; 84443; 85025; G0103

== ENCOUNTER → 2021-07-05 14:57 | Outpatient (CLI) | payer MEDICAID, SELFPAY ==
--- NOTE | 2021-07-05 14:57 | CT_ITS ---
PROCEDURE INFORMATION: Exam: CT Abdomen And Pelvis Without Contrast Exam date and time: 07/05/2021 2:57 PM Age: 51 years old Clinical indication: Abdominal pain; Patient HX: Abd pain TECHNIQUE: Imaging protocol: Computed tomography of the abdomen and pelvis without contrast. Radiation optimization: All CT scans at this facility use at least one of these dose optimization techniques: automated exposure control; mA and/or kV adjustment per patient size (includes targeted exams where dose is matched to clinical indication); or iterative reconstruction. COMPARISON: CT ABDOMEN PELVIS W CON 04/07/2020 12:34 PM FINDINGS: Lungs: No mass/infiltrate at either lung base. No pleural effusion. Liver: The liver is normal in size and attenuation. No intrahepatic biliary dilitation. Gallbladder and bile ducts: Normal. No calcified stones. No ductal dilation. Gallbladder wall thickness is normal. Pancreas: Normal. No ductal dilation. Spleen: Normal. No splenomegaly. Adrenal glands: There is a 1.4 cm well-circumscribed low-attenuation nodule present within the right adrenal gland, compatible with a small adenoma. The left adrenal gland appears unremarkable. Kidneys and ureters: Normal. No hydronephrosis. Stomach and bowel: Unremarkable. No obstruction. No mucosal thickening. Small bowel mesentery is normal. Appendix: Unremarkable. Intraperitoneal space: Unremarkable. No free air. No significant fluid collection. Vasculature: Arterial atheromatous calcifications are noted. No abdominal aortic aneurysm. There are calcified phleboliths within the pelvis. Lymph nodes: Unremarkable. No enlarged lymph nodes. Urinary bladder: Unremarkable as visualized. Reproductive: Central prostatic calcification identified. Bones/joints: Degenerative changes of the sacroiliac joints. No acute fracture. Soft tissues: Unremarkable. IMPRESSION: 1. No acute process within the abdomen or pelvis. 2. Small mass arising from the right adrenal gland, compatible with an adrenal adenoma. COMMENTS: Consistent with the [employer]'s Incidental Findings Committee white paper (J Am Boogie Radiol 2017): For any incidental adrenal lesion greater than 1 cm but less than 4 cm classified in this report as benign, likely benign, or containing fat (including classification as an adenoma or myelolipoma), no follow-up imaging is recommended per consensus recommendations based on imaging criteria. Further lab evaluation could be pursued if warranted based on clinical findings.
== END ==
PROVIDERS: PCP Nurse Practitioner Family; Visit Provider Nurse Practitioner Family
DX: R10.84 Generalized abdominal pain (principal)
CPT/HCPCS: 74176

== ENCOUNTER 2021-07-20 13:41 | Emergency (ER) | payer MEDICAID, SELFPAY ==
--- NOTE | 2021-07-20 13:41 | ECG_ITS ---
APPROVED REPORT Exam: Resting ECG HR:64 bpm ECG Measurements Heart Rate 64 AXES AR 166 P 49 QRSd 80 QRS 26 QT 406 T 68 QTc 418 Conclusion Normal sinus rhythm Normal ECG Electronically signed by : Jordon Chris MD 07/20/2021 20:31:07
[2021-07-20 13:52] VITALS: BP 132/79; PULSE 67; RESP 18; TEMP 36.8; O2SAT 100; BMI 27.0
--- NOTE | 2021-07-20 13:56 | XR_ITS ---
PROCEDURE INFORMATION: Exam: XR Chest Exam date and time: 07/20/2021 1:56 PM Age: 51 years old Clinical indication: Angina; Patient HX: Cough and chest pain TECHNIQUE: Imaging protocol: XR of the chest. Views: 1 view. COMPARISON: CT CHEST WO CON 07/04/2020 1:29 PM FINDINGS: Lungs: Unremarkable. No consolidation. Pleural spaces: Unremarkable. No pleural effusion. No pneumothorax. Heart/Mediastinum: Unremarkable. No cardiomegaly. Bones/joints: Unremarkable. IMPRESSION: No acute findings.
[2021-07-20 14:27] LABS: Basophils % 0.5 % (0.1-2.0); Eosinophils % 0.6 % (0.1-12.0); Hematocrit 42.8 % (42.0-52.0); Hemoglobin 14.3 g/dL (14.1-18.0); Lymphocytes # 1.4 K/mm3 (0.7-4.5); Lymphocytes % 23.1 % (10-50); Mean Corpuscular HGB Conc 33.5 g/dL (31.8-35.4); Mean Corpuscular Volume 101.5 fl (80-94); Mean Platelet Volume 8.9 fl (7.4-10.4); Monocytes # 0.3 K/mm3 (0.1-1.0); Monocytes % 4.3 % (1.7-9.3); Neutrophils # 4.4 K/mm3 (1.8-7.8); Neutrophils % 71.5 % (37.0-80.0); Platelet Count 191 K/mm3 (142-424); Red Blood Count 4.22 M/mm3 (4.60-6.20); Red Cell Distribution Width 13.5 % (11.5-17.5); White Blood Count 6.1 K/mm3 (4.8-10.8)
[2021-07-20 14:34] LABS: Alanine Aminotransferase 16 U/L (12-78); Albumin Level 4.5 g/dl (3.5-5.0); Albumin/Globulin Ratio 1.8 (1.1-1.8); Alkaline Phosphatase 52 U/L (38-126); Anion Gap 9.8 mEq/L (5-15); Aspartate Amino Transferase 31 U/L (17-59); Bilirubin,Total 0.5 mg/dl (0.2-1.3); Blood Urea Nitrogen 11 mg/dl (9-20); Calcium 9.5 mg/dl (8.4-10.2); Carbon Dioxide 27 mmol/L (22.0-30.0); Chloride 106 mmol/L (98-107); Creatinine Clearance Estimated 131 mL/min (50-200); Estimated Glomerular Filt Rate 90 ml/min (>60); GFR (African American) 109 ML/MIN (>60); Globulin 2.5 g/dL (1.3-3.2); Glucose 134 mg/dl (74-100); Lipase 37 U/L (23-300); Potassium 3.8 mmoL/L (3.5-5.1); Sodium 139 mmol/L (136-145)
[2021-07-20 14:48] LABS: Troponin I < 0.01 ng/ml (0.00-0.034)
--- NOTE | 2021-07-20 14:57 | HMH.EDCP ---
ED Disposition Clinical Impression: Nonspecific chest pain Disposition: Home, Self-Care Condition on Discharge: Good Instructions: DI for Chest Pain Referrals: Provider,Referral, [Referring] - Marcel Lew MD [Staff Physician] - - Critical Care Critical Care Time: No Attestation: On 07/20/21, the high probability of a clinically significant, sudden or life threatening deterioration of the following system(s) required my full and direct attention, intervention and personal management. The time I documented below is in addition to time spent performing reported procedures but includes the following listed in this critical care notation. Medical Decision Making - Medical Records Medical records reviewed: Yes: I reviewed the patient's medical records. - Jose Raul Inquiry Pt receiving controlled substance: No Vital Signs: 07/20/21 13:52 Temperature 98.3 F Temperature Source Oral Pulse Rate [Right Radial] 67 Respiratory Rate 18 Blood Pressure [Right Arm] 132/79 Blood Pressure Mean [Right Arm] 96 Blood Pressure Source [Right Arm] Automatic Cuff Blood Pressure Position [Right Arm] Sitting 02 Sat by Pulse Oximetry 100 Oxygen Delivery Method Room Air - Lab Data Lab Results 07/20/21 14:17: WBC 6.1, RBC 4.22 L, Hgb 14.3, Hct 42.8, MCV 101.5 H, MCH 34.0 H, MCHC 33.5, RDW 13.5, Plt Count 191, MPV 8.9, Neut % (Auto) 71.5, Lymph % (Auto) 23.1, [place] % (Auto) 4.3, Eos % (Auto) 0.6, Baso % (Auto) 0.5, Neut # (Auto) 4.4, Lymph # (Auto) 1.4, [place] # (Auto) 0.3, Eos # (Auto) 0.0, Baso # (Auto) 0.0 07/20/21 14:17: Sodium 139, Potassium 3.8, Chloride 106, Carbon Dioxide 27, Anion Gap 9.8, BUN 11, Creatinine 0.90, Estimated Creat Clear 131, Estimated GFR 90, Est GFR ( Amer) 109, Glucose 134 H, Calcium 9.5, Total Bilirubin 0.5, AST 31, ALT 16, Alkaline Phosphatase 52, Troponin I < 0.01, Total Protein 7.0, Albumin 4.5, Globulin 2.5, Albumin/Globulin Ratio 1.8 07/20/21 14:17: Lipase 37 Result diagrams: 07/20/21 14:17 07/20/21 14:17 Orders (Tests/Meds): ED MEDICATIONS Discontinued Medications Generic Name Dose Route Start Last Admin Trade Name Leandro PRN Reason Stop Dose Admin Ketorolac Tromethamine 30 mg 07/20/21 13:56 07/20/21 14:33 Ketorolac 30mg/Ml Vial IV 07/20/21 13:57 30 mg ONCE ONE Administration Ondansetron HCl 4 mg 07/20/21 13:56 07/20/21 14:33 Ondansetron 4mg/2ml Vial IV 07/20/21 13:57 4 mg ONCE ONE Administration ORDERS Category Date Time Status XR chest portable Stat Exams 07/20/21 13:56 Taken Troponin I Q3H Lab 07/20/21 17:00 Ordered Troponin I Q3H Lab 07/20/21 20:00 Ordered - Radiology Data #1 Image(s): Chest Image Reviewed: Yes I reviewed the patient's radiology results, Yes I reviewed the patient's radiology image, Yes I have reviewed radiologist's interpretation Preliminary Findings: Normal/NAD, No Infiltrates Seen - ECG Data Tracing #1 I reviewed this ECG and interpreted as documented below: ECG initial impression date: 07/20/21 ECG initial impression time: 13:41 ECG normal with no acute: arrhythmias, ischemia, conduction abnormalities, chamber hypertrophy Normal Sinus Rhythm: Yes - Reevaluation(s) Time: 15:24 Reevaluation #1: On reevaluation, the patient is feeling better. He is pain-free at this time. EKG was unremarkable. Negative troponin. Given the subacute nature, this is inconsistent with acute coronary syndrome. However given the patient's history I do believe he needs maintain follow-up with his primary fur sewer. He is to call to establish appointment. Needs to be reexamined in 48 hours. Given strict return precautions. Verbalized understanding. - MERLYN Score for Non-Stemi Age of Patient: 40-49 years old Heart Rate: 50-69 bpm Systolic Blood Pressure: 120-139 mmhg Serum Creatinine: <0.40 mg/dl CHF [place] Class: I-No CHF Other Risk Factors: None Non-Stemi Risk Score: 63 Risk Stratification: 1-108 = Low Ris
[2021-07-20 15:39] VITALS: BP 131/79; PULSE 79; RESP 16; TEMP 36.8; O2SAT 98
== END 2021-07-20 15:49 | disposition home or self-care (01) ==
PROVIDERS: Emergency Provider Emergency Medicine; PCP Nurse Practitioner Family
DX: R07.89 Other chest pain (principal); F41.9 Anxiety disorder, unspecified; J44.9 Chronic obstructive pulmonary disease, unspecified; K21.9 Gastro-esophageal reflux disease without esophagitis; I10 Essential (primary) hypertension; E78.5 Hyperlipidemia, unspecified; I25.10 Atherosclerotic heart disease of native coronary artery without angina pectoris; F17.210 Nicotine dependence, cigarettes, uncomplicated; Z79.899 Other long term (current) drug therapy
CPT/HCPCS: 71045; 80053; 83690; 84484; 85025; 93005; 96374; 96375; 99282; J2405

== ENCOUNTER → 2021-09-12 16:15 | Outpatient (CLI) | payer MEDICAID, SELFPAY | PROVIDERS: PCP Nurse Practitioner Family; Visit Provider Nurse Practitioner | DX: Z20.822 Contact with and (suspected) exposure to COVID-19 (principal) | CPT/HCPCS: C9803; U0003; U0005 ==

== ENCOUNTER → 2021-10-29 17:04 | Outpatient (CLI) | payer MEDICAID, SELFPAY ==
[2021-10-29 19:14] LABS: Cocaine Screen,Urine Negative ng/ml (<300)
[2021-10-29 19:15] LABS: Opiate Screen,Urine Negative ng/ml (<300)
[2021-10-29 19:16] LABS: Phencyclidine Screen,Urine Negative ng/ml (<25)
[2021-10-29 19:26] LABS: Barbiturates Screen,Urine Negative ng/ml (<200)
[2021-10-29 19:27] LABS: Benzodiazepines Screen,Urine Negative ng/ml (<200)
[2021-10-29 19:59] LABS: Amphetamine/Metha Screen,Urine Negative ng/ml (<1000)
[2021-10-29 20:27] LABS: Cannabinoid Screen,Urine Negative ng/ml (<50); Methadone Screen,Urine Negative ng/ml (<300)
== END ==
PROVIDERS: Visit Provider Nurse Practitioner Family
DX: F41.9 Anxiety disorder, unspecified (principal)
CPT/HCPCS: 80305

== ENCOUNTER → 2021-11-06 11:52 | Outpatient (CLI) | payer MEDICAID, SELFPAY ==
--- NOTE | 2021-11-06 | CA_ITS ---
APPROVED REPORT Exam: Exercise Treadmill Technologist: Alaina Cho Ht: 6 ft 1 in Wt: 206 lbs BSA: 2.18 m2 HR: 65 bpm BP: 130/81 mmHg Indications: Atypical Angina Medical History Medications: Amlodipine,,,,, Omeprazole,,,,, Isosorbide,,,,, Aspirin,,,,, Gabapentin,,,,, Xanax,,,,, Albuterol,,,,, ADVAIR,,,,, BisOPROLOL,,,,, AmiTRIPTYLINE,,,,, Quetiapine,,,,, Ranolazine,,,,, Stress Test Details Test: Angel HR Resting HR: 67 bpm Max Heart Rate (APMHR): 171.788870 bpm Max HR Achieved: 130 bpm Target HR (85% APMHR): 145.315251 bpm % of APMHR: 76.02 Recovery HR: 80 bpm BP Resting BP: 130.0/81.0 mmHg Max BP: 154.0/75.0 mmHg Recovery BP: 138.0/78.0 mmHg ECG Resting ECG: Normal sinus rhythm Clinical Exercise duration: 07:00 min Highest Stage Achieved: Exercise capacity: 10.1 METs Stress ECG Conclusion Patient exercised 7:00 into stage 3 of Angel Protocol. Symptoms: No chest pain. Arrhythmias/Ectopy: None ST-T Changes: Allowing for motion artifact, the ST response to exercise appears to be within normal. Conclusion: Normal GXT to heart rate achieved (76% of PM). Blunted heart rate on beta jeanna. Myoview images reported separately. Electronically signed by : Tyler Ascencio MD 11/06/2021 19:32:51
--- NOTE | 2021-11-06 11:52 | NM_ITS ---
APPROVED REPORT Exam: Nuclear Stress Test Indication: Chest pain, SOB, Palpitations, Fatigue, CAD, HTN, High cholesterol, Tobacco use, Family history Patient Location: Outpatient Stress Tech: Alaina Cho PA Tech:Julieth Mcclelland, ARRT, RT (R)(N) Ht: 6 ft 1 in Wt: 205 lbs HR: 67 bpm BP: 130/81 mmHg BSA: 2.17 m2 BMI: 27.0 History: Chest pain, SOB, Palpitations, Fatigue, CAD, HTN, High cholesterol, Tobacco use, Family history Procedure: Patient exercised on Angel protocol 7:00 minutes and sec, resting heart rate 67 bpm, resting blood pressure 130/81 mmHg, with exercise maximum heart rate achived was 130 bpm which is 76 % of the maximum predicted heart rate and blood pressure was 154/75 mmHg. Test was stopped due to SOA. Patient denied any complaint of chest pain. Patient has good exercise capacity, achieved 10.1 METs of workload on treadmill, the blood pressure response to exercise was Adequate. Electrocardiogram Resting electrocardiogram shows sinus rhythm, with exercise there is less than 1.[address] segment depression noted from the baseline EKG. The EKG portion of the exercise Myoview was nondiagnostic as patient did not achieve the target heart rate. Cardiac Stress and Resting SPECT Images: Cardiac Stress and Resting SPECT images were obtained using technetium 99m Myoview 32.3 mCi stress and 10.56 mCi at rest. Gated SPECT analysis of segmental wall motion and calculation of ejection fraction also done. Cardiac stress and resting SPECT images show uniform myocardial activity without segmental perfusion abnormality, computer derived ejection fraction of 56% with no regional wall motion abnormality, right ventricle is normal size and contractility. Conclusion: 1. The EKG portion of the exercise Myoview was nondiagnostic as patient did not achieve the target heart rate, patient has good exercise capacity achieved 10.1 METs of workload on treadmill, the blood pressure response to exercise was adequate, there was no exercise-induced chest discomfort. 2. No scintigraphic evidence of reversible ischemia seen, computer derived ejection fraction is 56% with no regional wall motion abnormality, right ventricle is normal size and contractility. Electronically signed by : Tyler Ascencio MD 11/06/2021 19:35:20
--- NOTE | 2021-11-06 13:21 | CA_ITS ---
APPROVED REPORT EXAM: Comprehensive 2D, Doppler, and color-flow Echocardiogram Sweeper Operator Highways: Wendy Ambrocio RT(R) Ht: 6 ft 1 in Wt: 205lbs BSA: 2.17 BP: 108/70 mmHg Indications: angina, CP, smoker, HTN, SHEPHERD, hyperlipidemia, CAD, GERD 2D Dimensions LVOT 2.06 cm (M/F) 1.5-2.5 LA Volume 21.50 mL LA Volume Index 9.90 mL/m2 (M/F) 16-34 M-Mode Dimensions RVDd 3.01 cm (0.9-2.6) LA Diam 3.43 cm (1.9-4.0) LVDd 4.82 cm (3.5-5.7) Ao Diam 2.70 cm (2.0-3.7) LVDs 2.65 cm (3.5-5.7) IVSd 0.84 cm (0.6-1.1) PWd 0.92 cm (0.6-1.1) EF (Teich) 76.20% FS 45.00% EDV (Teich) 108.60 mL ESV (Teich) 25.80 mL LV Diastology E Decel Time 173.00 (160-240 msec) E/A Ratio 0.8 MED E' 10.80 (< 7 cm/sec) E'/MED E' Ratio 5.07 (>14) LAT E' 10.70 (<10 cm/sec) E/LAT E' Ratio 5.12 (>14) Mitral Valve MV E Max Ronaldo. 55.00 (40-130 cm/s) MV A Velocity 67.00 (40-130 cm/s) E/A Ratio 0.81 MV Decel. Time 173.00 (160-240 ms) MV PHT 51.00 ms Left Ventricle Left atrium is mildly enlarged, left ventricle is normal size, mild concentric left ventricular hypertrophy, visually estimated ejection fraction 55% with no regional wall motion abnormality, grade 1 diastolic dysfunction seen without tissue Doppler evidence of raise left atrial pressure. Right Ventricle Right atrium and right ventricle mildly enlarged with normal contractility. Aortic Valve Aortic valve is minimally thickened and fibrosed, there is no aortic stenosis or aortic insufficiency. Mitral Valve Mitral valve grossly normal, there is trace mitral regurgitation. Tricuspid Valve Tricuspid grossly normal, there is trace tricuspid regurgitation, tricuspid regurgitation jet velocity is inadequate for calculation of the right ventricular systolic pressure. Pulmonic Valve Pulmonic valve is poorly visualized. Great Vessels Aortic root is normal size. Inferior vena cava is poorly visualized. Pericardium No significant pericardial effusion. Conclusion 1. Mild biatrial enlargement, normal left ventricular size, mild concentric left ventricular hypertrophy, visually estimated ejection fraction 55% with no regional wall motion abnormality, grade 1 diastolic dysfunction without tissue Doppler evidence of raise left atrial pressure. 2. Mildly enlarged right ventricle with normal contractility. 3. Trace mitral and tricuspid regurgitation. 4. No significant pericardial effusion 5. Inferior vena cava is poorly visualized. Electronically signed by : Tyler Ascencio MD 11/06/2021 21:08:23
--- NOTE | 2021-11-06 13:29 | HMH.ITSHM ---
Current Home Medications as stated by this patient Madhu Poon or delivery representative. []SIMVASTATIN RANOLAZINE OMEPRAZOLE GABAPENTIN FLUTICASONE VITAMIN D2 BISOPROLOL AMITRIPTYLINE ALPRAZOLAM VENLAFAXINE TICAGRELOR QUETIAPINE ISOSORBIDE DICLOFENAC ASA AMLODIPINE ALBUTEROL
== END ==
PROVIDERS: PCP Nurse Practitioner Family; Visit Provider Physician Assistant
DX: R06.00 Dyspnea, unspecified (principal); R07.9 Chest pain, unspecified; I20.8 Other forms of angina pectoris; I11.9 Hypertensive heart disease without heart failure; E78.5 Hyperlipidemia, unspecified; I73.9 Peripheral vascular disease, unspecified; F17.200 Nicotine dependence, unspecified, uncomplicated; J18.9 Pneumonia, unspecified organism; J44.9 Chronic obstructive pulmonary disease, unspecified
CPT/HCPCS: 78452; 93017; 93306; A9502

== ENCOUNTER 2021-11-06 14:50 | Emergency (ER) | payer MEDICAID, SELFPAY ==
[2021-11-06 16:04] VITALS: BP 117/78; PULSE 70; RESP 14; TEMP 36.8; O2SAT 100; BMI 27.0
--- NOTE | 2021-11-06 16:21 | HMH.EDUTC ---
[facility] [place] Disposition Clinical Impression: Encounter for laboratory testing for COVID-19 virus Disposition: Home, Self-Care Condition on Discharge: Good Instructions: DI for COVID-19 (Suspected or Confirmed ), Preventing the Spread of Coronavirus Discharge Instructions Additional Instructions: *Monitor Temp, Over the counter Motrin or Tylenol as directed/as needed Tylenol every 4 hours and Motrin every 6 hours (as long as your family doctor has told you that you can take it) for fever or pain. and straight to ER if unable to lower temp less than 101.0 after medication given Follow up IMMEDIATELY for new or worsening symptoms or no Noticeable improvement over the next 48-72 hours. 911 for difficulty breathing or swallowing You were tested for today for COVID19 your test result should be back in the next 24-48 hours, you may check your results on the [facility] my Health Portal Make sure to take your Vitamins Vit. C Vit D and Zinc if you can take them Referrals: Hina Chilel APRN [Primary Care Provider] - As needed Medical Decision Making - Jose Raul Inquiry Pt receiving controlled substance: No Jose Raul was queried for this patient: No Vital Signs: 11/06/21 16:04 Temperature 98.2 F Temperature Source Oral Pulse Rate [Left] 70 Respiratory Rate 14 Blood Pressure [Right Arm] 117/78 Blood Pressure Mean [Right Arm] 91 02 Sat by Pulse Oximetry 100 Orders (Tests/Meds): ORDERS Category Date Time Status Covid-19 Nasal PCR ([facility]) Routine Lab 11/06/21 15:57 Received [facility] [place] HPI - General Stated complaint: covid test Time Seen by Provider: 11/06/21 16:21 Mode of Arrival: Ambulatory Source of Information: Patient Limitations: No Limitations Description of Symptoms (Recalled from Triage Doc. by RN): pt needs a covid test for a procedure HEENT Symptoms (Recalled from RN notes): No Resp Symptoms (Recalled from RN notes): No Skin Symptoms (Recalled from RN notes): No MS Symptoms (Recalled from RN notes): No Functional Status (Recalled from RN notes): wnl - History of Present Illness Provider Complaint: Pateint states that he is having a procedure down on Friday and has to have a COVID test Denies exposure or symptoms - Related Data Home Medications Medication Instructions Recorded Confirmed Isosorbide Mononitrate [Isosorbide 120 mg PO DAILY 04/01/20 10/29/21 Mononitrate ER] Albuterol Sulfate [Proventil Hfa] 1 puff INHALATION Q6H 06/20/20 10/29/21 Amlodipine Besylate See Rx Instructions .ROUTE .COMPLEX 09/10/21 10/29/21 Aspirin [Low Dose Aspirin EC] See Rx Instructions .ROUTE .COMPLEX 09/10/21 10/29/21 Diclofenac Sodium [Voltaren 2 g TOPICAL QID 09/10/21 10/29/21 Arthritis Pain] Quetiapine Fumarate 100 mg PO QHS 09/10/21 10/29/21 Ticagrelor [Brilinta] 90 mg PO BID 09/10/21 10/29/21 Venlafaxine HCl [Effexor XR 150mg] 150 mg PO DAILY 09/10/21 10/29/21 bisoproloL fumarate [Bisoprolol See Rx Instructions .ROUTE .COMPLEX 09/10/21 10/29/21 Fumarate] Previous Rx's Medication Instructions Recorded fluticasone 100 mcg-salmeterol 50 1 inh INHALATION BID PRN 90 Days 05/31/20 mcg/dose blistr powdr for #60 each inhalation ranolazine 1,000 mg See Rx Instructions .ROUTE 09/17/21 tablet,extended release,12 hr .COMPLEX #60 tablet amitriptyline 75 mg tablet See Rx Instructions .ROUTE 09/19/21 .COMPLEX #90 tab ergocalciferol (vitamin D2) 1,250 See Rx Instructions .ROUTE 10/03/21 mcg (50,000 unit) capsule .COMPLEX #12 cap alprazolam 0.25 mg tablet 0.25 mg PO BID PRN #60 tab 10/29/21 gabapentin 800 mg tablet 800 mg PO QID 30 Days #120 tab 10/29/21 omeprazole 20 mg capsule,delayed 20 mg PO DAILY #90 cap 10/29/21 release simvastatin 40 mg tablet 40 mg PO DAILY #90 tab 10/29/21 Allergies Allergy/AdvReac Type Severity Reaction Status Date / Time No Known Allergies Allergy Verified 10/29/21 15:42 - Worker's Comp Is this a Worker's Comp case?: No [facility] History - Hepatitis A Screen Drug use his
[2021-11-06 16:25] VITALS: BP 117/78; PULSE 70; RESP 14; TEMP 36.8
== END 2021-11-06 16:29 | disposition home or self-care (01) ==
PROVIDERS: Emergency Provider Nurse Practitioner; PCP Nurse Practitioner Family
DX: Z11.52 Encounter for screening for COVID-19 (principal)
CPT/HCPCS: 99211; C9803; G0463; U0003; U0005

== ENCOUNTER 2021-11-09 12:32 | Day surgery (SDC) | payer MEDICAID, SELFPAY ==
[2021-09-10 13:35] VITALS: BMI 27.0
[2021-11-07 13:10] VITALS: BMI 27.0
--- NOTE | 2021-11-08 13:41 | HMH.GSHP ---
HPI HPI: Patient is a 51-year-old male from [place] with a history of atypical angina, coronary artery disease, hyperlipidemia, hypertension, COPD whom I had seen on 05/14/2019 for essentially initial screening colonoscopy. Patient never followed through with colonoscopy at that time. He was referred back to the office and seen on 06/09/2020 for possible colonoscopy and EGD. At that time he was having some throat discomfort and had been seen in the emergency department where he underwent barium swallow as well as CT scan of the neck. Barium swallow was unremarkable and CT scan of the neck revealed thickening of the posterior and inferior aspect of the aryepiglottic folds with small area of decreased attenuation at the junction of the folds posteriorly. These findings could be inflammatory or neoplastic. It was recommended he undergo ENT evaluation for direct laryngoscopy. He was sent for general surgical consultation at that time. I felt that the patient would need colonoscopy essentially for asymptomatic screening purposes however I recommended ENT evaluation based off of the imaging and recommendations. He never did proceed with colonoscopy at that time. On 06/29/2020 he underwent direct microlaryngoscopy with biopsy of polyp on the right arytenoid and partial uvulectomy by Dr. Real Buenrostro. Of note, the patient did have left heart catheterization with drug-eluting stent deployment on 01/05/2019. He recently had been seen at his primary care provider's office with complaints of abdominal discomfort, pain, and nausea. He was therefore scheduled for EGD and colonoscopy. He does have a family history of colon cancer in his uncle. He describes the pain in the upper abdomen, constant and sharp with no exacerbating or alleviating factors. It is not related to eating. [facility] History I have reviewed the patient's past medical history: Yes Medical History: Reports:: Anxiety, Chronic Obstructive Pulmonary Disease (COPD), Coronary Artery Disease, Gastroesophageal Reflux Disease(GERD), Hiatal Hernia, Hyperlipidemia, Hypertension Denies:: Cancer, Diabetes Mellitus Type 1, Diabetes Mellitus Type 2, Internal Pacemaker, MRSA, Seizures *Have you ever received a pneumonia vaccine?: No *Have you received a flu vaccine this season?: No Other Medical History: Reports: Other. Denies: Blood Transfusion Reaction Other Surgeries: Yes: No Previous Surgery, Cardiac Catheterization, Coronary Stent, EGD. No: Pacemaker Amputation: No Fractures: Yes (LEFT FOOT) - *Social History Last grade of school completed: High school graduate Smoking Status: Current every day smoker Tobacco Type: cigarettes # Packs/Day (cigarettes): 2 Alcohol Intake: never Alcohol Intake Frequency:: 3 or more drinks per day Substance Use Type: denies use *Occupational Status:: unemployed Housing: other Household Members: other *Travel in the last 8 weeks: None - Psychiatric History Pschychiatric History:: Reports:: Anxiety Family Hx:: Asthma, Cancer, Coronary Artery Disease, Diabetes, Heart Attack, Hypertension, Alcoholism Review of Systems - Review of Systems Review of systems:: pertinent systems reviewed and negative unless documented below Meds Home Medications Medication Instructions Recorded Confirmed Type Isosorbide Mononitrate [Isosorbide 120 mg PO DAILY 04/01/20 11/07/21 History Mononitrate ER] fluticasone 100 mcg-salmeterol 50 1 inh INHALATION BID PRN 90 Days 05/31/20 11/07/21 Rx mcg/dose blistr powdr for #60 each inhalation Albuterol Sulfate [Proventil Hfa] 1 puff INHALATION Q6H 06/20/20 11/07/21 History Amlodipine Besylate See Rx Instructions .ROUTE .COMPLEX 09/10/21 11/07/21 History Aspirin [Low Dose Aspirin EC] See Rx Instructions .ROUTE .COMPLEX 09/10/21 11/07/21 History Diclofenac Sodium [Voltaren 2 g TOPICAL QID 09/10/21 11/07/21 History Arthritis Pain] Quetiapine Fumarate 100 mg PO QHS 09/10/21 11/07/21 History Ticagrelor [Brilinta] 90 mg PO BID
[2021-11-09 12:56] VITALS: BP 122/78; PULSE 68; RESP 18; TEMP 37; O2SAT 100
--- NOTE | 2021-11-09 14:17 | P.PN_ITS ---
[facility] Anesthesia Checklist - Structural Data Admitted From: Home Planned Operative Procedure/s: egd,colonoscopy Consent for Planned Operative Procedure(s) Verified: Yes - Additional verifications Anesthesia Reactions: No Hx Blood Transfusions: No Blood Transfusion Reaction: No - Airway Assessment C-Spine Mobility Assessed: Yes TMJ Mobility Assessed: Yes Dentition: Poor Dentition - Neurological Assessment Level of Consciousness: Awake, Alert, Appropriate - Anesthesia Plan Anesthesia Risk discussed: Yes Anesthesia Plan: Verified ASA Class: III Anesthesia Type: MAC [facility] History I have reviewed the patient's past medical history: Yes Medical History: Reports:: Anxiety, Chronic Obstructive Pulmonary Disease (COPD), Coronary Artery Disease, Gastroesophageal Reflux Disease(GERD), Hiatal Hernia, Hyperlipidemia, Hypertension Denies:: Cancer, Diabetes Mellitus Type 1, Diabetes Mellitus Type 2, Internal Pacemaker, MRSA, Seizures *Have you ever received a pneumonia vaccine?: No *Have you received a flu vaccine this season?: No Other Medical History: Reports: Other. Denies: Blood Transfusion Reaction Anesthesia experience/problems:: none Other Surgeries: Yes: No Previous Surgery, Cardiac Catheterization, Coronary Stent, EGD. No: Pacemaker Amputation: No Fractures: Yes (LEFT FOOT) - *Social History Last grade of school completed: High school graduate Smoking Status: Current every day smoker Tobacco Type: cigarettes # Packs/Day (cigarettes): 2 Alcohol Intake: never Alcohol Intake Frequency:: 3 or more drinks per day Substance Use Type: denies use *Occupational Status:: unemployed Housing: other Household Members: other *Travel in the last 8 weeks: None - Psychiatric History Pschychiatric History:: Reports:: Anxiety Family Hx:: Asthma, Cancer, Coronary Artery Disease, Diabetes, Heart Attack, Hypertension, Alcoholism
[2021-11-09 14:30] VITALS: O2SAT 100
--- NOTE | 2021-11-09 15:12 | HMH.SCOPE ---
- Procedure: Date: 11/09/21 Patient Date of :: 1970 Procedure Performed:: 1. Esophagogastroduodenoscopy with biopsies 2. Total colonoscopy to terminal ileum with polypectomy by snare and biopsy forceps Indications:: Patient is a 51-year-old male from [place] with a history of atypical angina, coronary artery disease, hyperlipidemia, hypertension, COPD whom I had seen on 05/14/2019 for essentially initial screening colonoscopy. Patient never followed through with colonoscopy at that time. He was referred back to the office and seen on 06/09/2020 for possible colonoscopy and EGD. At that time he was having some throat discomfort and had been seen in the emergency department where he underwent barium swallow as well as CT scan of the neck. Barium swallow was unremarkable and CT scan of the neck revealed thickening of the posterior and inferior aspect of the aryepiglottic folds with small area of decreased attenuation at the junction of the folds posteriorly. These findings could be inflammatory or neoplastic. It was recommended he undergo ENT evaluation for direct laryngoscopy. He was sent for general surgical consultation at that time. I felt that the patient would need colonoscopy essentially for asymptomatic screening purposes however I recommended ENT evaluation based off of the imaging and recommendations. He never did proceed with colonoscopy at that time. On 06/29/2020 he underwent direct microlaryngoscopy with biopsy of polyp on the right arytenoid and partial uvulectomy by Dr. Real Buenrostro. Of note, the patient did have left heart catheterization with drug-eluting stent deployment on 01/05/2019. He is on Brilinta and aspirin. He recently had been seen at his primary care provider's office with complaints of abdominal discomfort, pain, and nausea. He was therefore scheduled for EGD and colonoscopy. He does have a family history of colon cancer in his uncle. He describes the pain in the upper abdomen, constant and sharp with no exacerbating or alleviating factors. It is not related to eating. Performing Provider:: El Ceron MD Referring Provider:: Hina Chilel Sedation:: MAC sedation Procedure:: Patient on was taken to endoscopy procedure room. He was positioned in lateral decubitus position. Adequate intravenous sedation was achieved. Attention was first turned to upper endoscopy. Olympus endoscope was inserted via the oropharynx. Esophagus was cannulated and endoscope was advanced. Esophagus appeared normal. Gastroesophageal junction was encountered at approximately 40 cm from the incisors. Stomach was cannulated and insufflated. Retroflexion was performed which revealed no evidence of any obvious hiatal hernia. There was some patchy diffuse mild gastritis. Gastric antral mucosal biopsies obtained for CLOtest for H. pylori. Pylorus was traversed. Duodenum appeared unremarkable. Endoscope was withdrawn into the stomach. Gastric mucosal biopsies were obtained. Stomach was desufflated and endoscope was withdrawn. Next attention was turned to colonoscopy. Variable stiffness Olympus colonoscope was inserted via the anus. Is advanced to the cecum. Ileocecal valve and appendiceal orifice were clearly identified. Overall colonic preparation was good. However there was some particulate undigested vegetable food matter and stool within the right colon. Irrigation and suctioning was performed. Colonoscope was advanced a short distance into the terminal ileum which was grossly normal. Colonoscope was slowly withdrawn through the colon with careful surveillance. At the hepatic flexure there is a small polyp removed with cold cutting snare. In the descending colon there was a small polyp removed with cold cutting snare. The rectosigmoid region there were several hyperplastic appearing polyps which were removed with biopsy forceps. Within the rectum there is a moderate sized, 12 to 14 mm, adenoma
[2021-11-09 15:15] VITALS: BP 92/62; PULSE 66; RESP 14; TEMP 36.5; O2SAT 95
[2021-11-09 15:25] VITALS: BP 102/75; PULSE 57; RESP 16; O2SAT 98
[2021-11-09 15:35] VITALS: BP 112/71; PULSE 57; RESP 16; O2SAT 98
[2021-11-09 15:41] VITALS: BP 116/78; PULSE 64; RESP 18; TEMP 36.5; O2SAT 99
== END 2021-11-09 15:47 | disposition home or self-care (01) ==
LOC: OUTP 12:33
PROVIDERS: PCP Nurse Practitioner Family; Visit Provider Surgery
PROC: 0DJ08ZZ Inspection of Upper Intestinal Tract, Via Natural or Artificial Opening Endoscopic (ICD-10-PCS; CPT 43235; principal; 2021-11-09 13:30)
DX: Z12.11 Encounter for screening for malignant neoplasm of colon (principal); K63.5 Polyp of colon; K62.1 Rectal polyp; K64.1 Second degree hemorrhoids; K29.70 Gastritis, unspecified, without bleeding; F41.9 Anxiety disorder, unspecified; J44.9 Chronic obstructive pulmonary disease, unspecified; I25.10 Atherosclerotic heart disease of native coronary artery without angina pectoris; E78.5 Hyperlipidemia, unspecified; I10 Essential (primary) hypertension; Z72.0 Tobacco use; Z80.9 Family history of malignant neoplasm, unspecified
CPT/HCPCS: 45385; 45380; 43239; 87339

== ENCOUNTER → 2021-11-19 19:23 | Outpatient (CLI) | payer MEDICAID, SELFPAY ==
[2021-11-19 17:29] LABS: Barbiturates Screen,Urine Negative ng/ml (<200); Benzodiazepines Screen,Urine Negative ng/ml (<200)
[2021-11-19 17:30] LABS: Amphetamine/Metha Screen,Urine Negative ng/ml (<1000); Methadone Screen,Urine Negative ng/ml (<300)
[2021-11-19 17:31] LABS: Cannabinoid Screen,Urine Negative ng/ml (<50)
[2021-11-19 17:32] LABS: Cocaine Screen,Urine Negative ng/ml (<300); Opiate Screen,Urine Negative ng/ml (<300)
[2021-11-19 17:33] LABS: Phencyclidine Screen,Urine Negative ng/ml (<25)
== END ==
PROVIDERS: Visit Provider Nurse Practitioner Family
DX: Z76.0 Encounter for issue of repeat prescription (principal)
CPT/HCPCS: 80305

== ENCOUNTER → 2022-01-16 15:51 | Outpatient (CLI) | payer MEDICAID, SELFPAY ==
[2022-01-16 16:23] LABS: Amphetamine/Metha Screen,Urine Negative ng/ml (<1000)
[2022-01-16 16:24] LABS: Barbiturates Screen,Urine Negative ng/ml (<200)
[2022-01-16 16:26] LABS: Benzodiazepines Screen,Urine Negative ng/ml (<200); Cannabinoid Screen,Urine Negative ng/ml (<50)
[2022-01-16 16:27] LABS: Cocaine Screen,Urine Negative ng/ml (<300); Methadone Screen,Urine Negative ng/ml (<300)
[2022-01-16 16:28] LABS: Opiate Screen,Urine Negative ng/ml (<300)
[2022-01-16 16:29] LABS: Phencyclidine Screen,Urine Negative ng/ml (<25)
== END ==
PROVIDERS: PCP Nurse Practitioner Family; Visit Provider Nurse Practitioner Family
DX: G62.9 Polyneuropathy, unspecified (principal)
CPT/HCPCS: 80305

== ENCOUNTER 2022-10-23 16:30 | Emergency (ER) | payer MEDICAID, SELFPAY ==
[2022-10-23 16:46] VITALS: BP 128/84; PULSE 94; RESP 16; TEMP 36.9; O2SAT 100; BMI 26.1
--- NOTE | 2022-10-23 16:50 | XR_ITS ---
PROCEDURE INFORMATION: Exam: XR Right Tibia and Fibula Exam date and time: 10/23/2022 4:53 PM Age: 52 years old Clinical indication: Pain; Ankle; Right; Additional info: Right ankle pain; Fall TECHNIQUE: Imaging protocol: Radiologic exam of the right tibia and fibula. Views: 2 views. COMPARISON: CR XR ANKLE RT MIN 3V 10/23/2022 4:51 PM FINDINGS: Bones/joints: Anterior process of the calcaneus has subtle cortical irregularity. No fractures, dislocations, or bone lesions in the right tibia and fibula. Soft tissues: Lateral soft tissue swelling overlies the ankle and hindfoot. IMPRESSION: 1. No fractures or dislocations in the right tibia and fibula. 2. Cortical irregularity in the anterior process of the right calcaneus may represent a fracture. CT scan of the useful if clinically warranted.
--- NOTE | 2022-10-23 16:50 | XR_ITS ---
PROCEDURE INFORMATION: Exam: XR Right Ankle Exam date and time: 10/23/2022 4:51 PM Age: 52 years old Clinical indication: Pain; Ankle; Right; Additional info: Right ankle pain; Fall TECHNIQUE: Imaging protocol: Radiologic exam of the right ankle. Views: 3 or more views. COMPARISON: CR XR FOOT RT MIN 3V 10/23/2022 4:49 PM FINDINGS: Bones/joints: Questionable cortical irregularity affects the lateral margin of the anterior process of the calcaneus on the AP view. No other fractures, dislocations, or bone lesions. Soft tissues: Lateral soft tissue swelling is present. IMPRESSION: 1. Questionable fracture of the anterior process of the right calcaneus. CT scan of the ankle may be useful if clinically warranted. 2. Lateral soft tissue swelling about the right ankle.
--- NOTE | 2022-10-23 16:50 | XR_ITS ---
PROCEDURE INFORMATION: Exam: XR Right Foot Exam date and time: 10/23/2022 4:49 PM Age: 52 years old Clinical indication: Pain; Ankle; Right; Additional info: Right ankle pain; Fall TECHNIQUE: Imaging protocol: Radiologic exam of the right foot. Views: 3 or more views. COMPARISON: No relevant prior studies available. FINDINGS: Bones/joints: Questionable cortical irregularity along the lateral anterior process of the calcaneus. No other fractures, dislocations, or focal bone lesions. Soft tissues: Lateral soft tissue swelling overlies the hindfoot and ankle. IMPRESSION: Possible fracture of the anterior process of the calcaneus. CT of the right hindfoot may be useful if clinically warranted.
--- NOTE | 2022-10-23 16:56 | PC.NURSE ---
pt to xray via wheelchair
--- NOTE | 2022-10-23 17:02 | HMH.EDEXTP ---
Discharge Plan Disposition Patient Disposition: Home, Self-Care Condition: Good Prescriptions Prescriptions: New oxycodone-acetaminophen [Percocet] 7.5-325 mg tablet 1 tab PO Q6H PRN (Reason: pain) Qty: 20 0RF No Action omeprazole 20 mg capsule,delayed release(DR/EC) 20 mg PO DAILY Qty: 90 3RF simvastatin 40 mg tablet 40 mg PO DAILY Qty: 90 3RF bisoprolol fumarate 5 mg tablet 5 mg PO DAILY amitriptyline 75 mg tablet 75 mg PO DAILY Qty: 90 3RF prednisone 20 mg tablet 20 mg PO BID 5 Days Qty: 10 0RF albuterol sulfate 90 mcg/actuation HFA aerosol inhaler 2 puff inhalation Q4-6H PRN (Reason: shortness of breath or wheezing) Qty: 8.5 0RF alprazolam [Xanax] 0.25 mg tablet 0.25 mg PO BID PRN (Reason: anxiety) Qty: 60 5RF gabapentin 800 mg tablet See Rx Instructions .ROUTE .COMPLEX Qty: 120 3RF Rx Instructions: one by mouth q6 hours prn pain; aspirin 81 mg tablet,delayed release (DR/EC) See Rx Instructions .ROUTE .COMPLEX Qty: 30 10RF Dose Instruction: TAKE 1 TABLET BY MOUTH EVERY DAY WITH FOOD Rx Instructions: TAKE 1 TABLET BY MOUTH EVERY DAY WITH FOOD ticagrelor 90 mg tablet 90 mg PO BID Qty: 60 5RF amlodipine 5 mg tablet 5 mg PO DAILY Qty: 90 0RF isosorbide mononitrate 120 MG tablet extended release 24 hr 120 mg PO DAILY venlafaxine 150 MG capsule,extended release 24hr 150 mg PO DAILY quetiapine 100 MG tablet 100 mg PO QHS diclofenac sodium 20 GM gel 2 g TOPICAL QID Rx Instructions: apply to back ergocalciferol (vitamin D2) 1,250 MCG capsule See Rx Instructions .Route .COMPLEX Rx Instructions: TAKE 1 CAPSULE BY MOUTH ONCE WEEKLY ranolazine 1,000 mg tablet extended release 12 hr 1,000 mg PO BID Referrals Follow up/Referrals: Freddie Campo MD [Primary Care Provider] - See instructions Discharge ED Provider: Kwaku Bonilla Extremity Problem HPI General Chief complaint: Extremity Injury, Lower Stated complaint: AO [id number]@home injured R Ankle Time Seen by Provider: 10/23/22 16:59 Mode of Arrival: Wheelchair Source of Information: Patient Limitations: No Limitations Description of Symptoms (Recalled from ER Triage Doc. by RN): pt comes in with c/o right foot and ankle pain. 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 pt reports that he did not hit anything other than his right foot. pt complains of pain. stated the accident happened about 3 hours ago History of Present Illness HPI Narrative: Patient presents complaining of pain to the right foot and ankle after having fallen from a ladder height of approximately 7 feet. He denies additional injuries. He describes the pain as moderate and worse with weightbearing. Related Data Home Medications Medication Instructions Recorded Confirmed isosorbide mononitrate 120 mg 120 mg PO DAILY chest pain' 04/01/20 10/22/22 tablet,extended release 24 hr diclofenac sodium 1 % topical gel 2 g topical QID Pain 09/10/21 10/22/22 quetiapine 100 mg tablet 100 mg PO QHS mood 09/10/21 10/22/22 venlafaxine 150 mg 150 mg PO DAILY Depression 09/10/21 10/22/22 capsule,extended release 24 hr ergocalciferol (vitamin D2) 1,250 See Rx Instructions .Route 11/07/21 10/22/22 mcg (50,000 unit) capsule .COMPLEX Supplement bisoprolol fumarate 5 mg tablet 5 mg PO DAILY 03/05/22 10/22/22 ranolazine 1,000 mg 1,000 mg PO BID Chest pain 03/05/22 10/22/22 tablet,extended release,12 hr Previous Rx's Medication Instructions Recorded omeprazole 20 mg capsule,delayed 20 mg PO DAILY acid reflux #90 caps 10/29/21 release simvastatin 40 mg tablet 40 mg PO DAILY Cholesterol #90 tabs 10/29/21 amitriptyline 75 mg tablet 75 mg PO DAILY Depression #90 tabs 12/17/21 aspirin 81 mg tablet,delayed See Rx Instructions .Route 01/30/22 release .COMPLEX #30 tabs ticagrelor 90 mg tablet 90 mg PO BID Blood thinner #60 tabs 06/10/22 a
--- NOTE | 2022-10-23 17:59 | CT_ITS ---
PROCEDURE INFORMATION: Exam: CT Right Lower Extremity Without Contrast, Ankle Exam date and time: 10/23/2022 6:09 PM Age: 52 years old Clinical indication: Injury or trauma; Fall; Work related; Blunt trauma; Other: Heel TECHNIQUE: Imaging protocol: CT of the right lower extremity without contrast was performed. Exam focused on the ankle. Radiation optimization: All CT scans at this facility use at least one of these dose optimization techniques: automated exposure control; mA and/or kV adjustment per patient size (includes targeted exams where dose is matched to clinical indication); or iterative reconstruction. REPORTING DATA: Count of CT and Cardiac NM exams in prior 12 months: This patient has received 0 known CTs and 0 known cardiac nuclear medicine studies in the 12 months prior to the current study. COMPARISON: CR XR ANKLE RT MIN 3V 10/23/2022 4:51 PM FINDINGS: Bones/joints: An avulsion fracture fragment from the anterior process of the calcaneus measures 5 mm in greatest dimension and corresponds to irregularity on earlier radiographs. A bone trey along the distal tip of the lateral malleolus may also represent an avulsion fracture. No other fractures or bone lesions. No dislocations. Soft tissues: Lateral soft tissue swelling overlies the lateral malleolus and lateral hindfoot. IMPRESSION: 1. Avulsion fracture of the anterior process of the right calcaneus. 2. Possible avulsion fracture of the lateral malleolus of the right ankle.
--- NOTE | 2022-10-23 18:12 | PC.NURSE ---
pt to CT at this time via wheelchair
--- NOTE | 2022-10-23 18:15 | PC.NURSE ---
pt back from CT at this time
--- NOTE | 2022-10-23 18:17 | PC.NURSE ---
pt just returned from CT, asked pt if he needed anything, pt declined.
[2022-10-23 19:03] VITALS: BP 121/69; PULSE 89; RESP 15; TEMP 36.7
== END 2022-10-23 19:06 | disposition home or self-care (01) ==
PROVIDERS: Emergency Provider Emergency Medicine; PCP Family Medicine
DX: S99.911A Unspecified injury of right ankle, initial encounter (principal); W11.XXXA Fall on and from ladder, initial encounter; F17.210 Nicotine dependence, cigarettes, uncomplicated
CPT/HCPCS: 73590; 73610; 73630; 73700; 96372; 99285

== ENCOUNTER 2022-10-30 17:58 | Emergency (ER) | payer MEDICAID, SELFPAY ==
[2022-10-30] VITALS (7 sets, daily range): BP systolic 112–149; BP diastolic 65–89; PULSE 62–98; RESP 17–19; TEMP 36.7–36.8; O2SAT 96–100; BMI 26.1
[2022-10-30 18:46] LABS: Basophils # 0.1 K/mm3 (0-0.2); Basophils % 0.6 % (0.1-2.0); Eosinophils % 0.5 % (0.1-12.0); Hematocrit 43.2 % (42.0-52.0); Hemoglobin 14.2 g/dL (14.1-18.0); Lymphocytes # 2.2 K/mm3 (0.7-4.5); Lymphocytes % 23.5 % (10-50); Mean Corpuscular HGB Conc 32.8 g/dL (31.8-35.4); Mean Corpuscular Hemoglobin 33.6 pg (27.0-31.2); Mean Corpuscular Volume 102.4 fl (80-94); Mean Platelet Volume 8.2 fl (7.4-10.4); Monocytes # 0.4 K/mm3 (0.1-1.0); Neutrophils # 6.7 K/mm3 (1.8-7.8); Neutrophils % 71.4 % (37.0-80.0); Platelet Count 291 K/mm3 (142-424); Red Blood Count 4.22 M/mm3 (4.60-6.20); Red Cell Distribution Width 13.3 % (11.5-17.5); White Blood Count 9.4 K/mm3 (4.8-10.8)
[2022-10-30 18:53] LABS: Alanine Aminotransferase 22 U/L (12-78); Albumin Level 4.7 g/dl (3.5-5.0); Albumin/Globulin Ratio 1.5 (1.1-1.8); Alkaline Phosphatase 70 U/L (38-126); Anion Gap 15.1 mEq/L (5-15); Aspartate Amino Transferase 28 U/L (17-59); Bilirubin,Total 0.6 mg/dl (0.2-1.3); Blood Urea Nitrogen 11 mg/dl (9-20); Carbon Dioxide 26 mmol/L (22.0-30.0); Chloride 99 mmol/L (98-107); Creatinine Clearance Estimated 112 mL/min (50-200); Estimated Glomerular Filt Rate 79 ml/min (>60); GFR (African American) 96 ML/MIN (>60); Globulin 3.1 g/dL (1.3-3.2); Glucose 125 mg/dl (74-100); Potassium 4.1 mmoL/L (3.5-5.1); Sodium 136 mmol/L (136-145); Total Protein,Serum 7.8 g/dl (6.3-8.2)
--- NOTE | 2022-10-30 19:23 | HMH.EDGENADL ---
Discharge Plan Disposition Patient Disposition: Home, Self-Care Condition: Good Prescriptions Prescriptions: New cephalexin 500 mg capsule 500 mg PO Q6H Qty: 40 0RF No Action simvastatin 40 mg tablet 40 mg PO DAILY Qty: 90 3RF bisoprolol fumarate 5 mg tablet 5 mg PO DAILY amitriptyline 75 mg tablet 75 mg PO DAILY Qty: 90 3RF prednisone 20 mg tablet 20 mg PO BID 5 Days Qty: 10 0RF albuterol sulfate 90 mcg/actuation HFA aerosol inhaler 2 puff inhalation Q4-6H PRN (Reason: shortness of breath or wheezing) Qty: 8.5 0RF alprazolam [Xanax] 0.25 mg tablet 0.25 mg PO BID PRN (Reason: anxiety) Qty: 60 5RF gabapentin 800 mg tablet See Rx Instructions .ROUTE .COMPLEX Qty: 120 3RF Rx Instructions: one by mouth q6 hours prn pain; aspirin 81 mg tablet,delayed release (DR/EC) See Rx Instructions .ROUTE .COMPLEX Qty: 30 10RF Dose Instruction: TAKE 1 TABLET BY MOUTH EVERY DAY WITH FOOD Rx Instructions: TAKE 1 TABLET BY MOUTH EVERY DAY WITH FOOD ticagrelor 90 mg tablet 90 mg PO BID Qty: 60 5RF amlodipine 5 mg tablet 5 mg PO DAILY Qty: 90 0RF oxycodone-acetaminophen [Percocet] 7.5-325 mg tablet 1 tab PO Q6H PRN (Reason: fracture pain) 10 Days Qty: 40 0RF omeprazole 20 mg capsule,delayed release(DR/EC) 20 mg PO DAILY Qty: 90 3RF oxycodone-acetaminophen [Percocet] 7.5-325 mg tablet 1 tab PO Q6H PRN (Reason: pain) Qty: 20 0RF isosorbide mononitrate 120 MG tablet extended release 24 hr 120 mg PO DAILY venlafaxine 150 MG capsule,extended release 24hr 150 mg PO DAILY quetiapine 100 MG tablet 100 mg PO QHS diclofenac sodium 20 GM gel 2 g TOPICAL QID Rx Instructions: apply to back ergocalciferol (vitamin D2) 1,250 MCG capsule See Rx Instructions .Route .COMPLEX Rx Instructions: TAKE 1 CAPSULE BY MOUTH ONCE WEEKLY ranolazine 1,000 mg tablet extended release 12 hr 1,000 mg PO BID Referrals Follow up/Referrals: Freddie Campo MD [Primary Care Provider] - See instructions Activity Restrictions/Add. Instructions Additional Instructions/Restrictions: Continue to rest and elevate your foot. Remove bandages, gently cleanse your foot, and reapply bandages once daily. Cephalexin as prescribed. Call Dr. Escamilla's office to arrange appointment to be seen by Dr. Escamilla is soon as possible. Make sure that your appointment is with Dr. Escamilla and not with a nurse practitioner or physician recruitment assistant Clinical Impressions Clinical Impression: Calcaneus fracture, Fracture blister Discharge ED Provider: Waldo Garcia General Adult HPI General Chief complaint: Skin/Abscess/Foreign Body Stated complaint: AO 10/24 broken heel i nfected Time Seen by Provider: 10/30/22 19:10 Mode of Arrival: Ambulatory Source of Information: Patient Limitations: No Limitations Description of Symptoms (Recalled from ER Triage Doc. by RN): c/o blisters, redness and increased pain on his right foot that started a few days ago. States he broke his right heel after he fell 5 ft off a ladder. Seen by and was told that the blisters would bust and would create its own bandaid. He is concerned about the increased pain and redness. History of Present Illness HPI narrative: Patient states he is concerned about possible infection in his right foot. Related Data Home Medications Medication Instructions Recorded Confirmed isosorbide mononitrate 120 mg 120 mg PO DAILY chest pain' 04/01/20 10/24/22 tablet,extended release 24 hr diclofenac sodium 1 % topical gel 2 g topical QID Pain 09/10/21 10/24/22 quetiapine 100 mg tablet 100 mg PO QHS mood 09/10/21 10/24/22 venlafaxine 150 mg 150 mg PO DAILY Depression 09/10/21 10/24/22 capsule,extended release 24 hr ergocalciferol (vitamin D2) 1,250 See Rx Instructions .Route 11/07/21 10/24/22 mcg (50,000 unit) capsule .COMPLEX Supplement bisoprolol fumarate 5 mg tabl
--- NOTE | 2022-10-30 19:23 | PC.NURSE ---
Paged employee communications coordinator for Dr Escamilla which is Dr Nicholson to consult on patient.
--- NOTE | 2022-10-30 19:24 | PC.NURSE ---
Dr Garcia talking to Dr Nicholson about patient.
--- NOTE | 2022-10-30 19:30 | PC.NURSE ---
at bedside for suzy of patient's blisters per Dr. Nicholson.
[2022-10-30 19:35] LABS: C-Reactive Protein 11.7 mg/L (0-4)
--- NOTE | 2022-10-30 20:04 | PC.NURSE ---
this nurse at bedside for wound dressing at this time. wounds cleansed and covered with xeroform dressings followed by a non adherent dressings and secured with kerlex and loosely taped per Dr. Garcia. pt tolerated well and sent home with extra supplies for dressing changes until his appointment.
[2022-10-30 20:36] LABS: Erythrocyte Sedimentation Rate 31 mm/hr (0-15)
== END 2022-10-30 20:48 | disposition home or self-care (01) ==
PROVIDERS: Emergency Provider Emergency Medicine; PCP Family Medicine
DX: S92.001A Unspecified fracture of right calcaneus, initial encounter for closed fracture (principal); S90.821A Blister (nonthermal), right foot, initial encounter; F17.210 Nicotine dependence, cigarettes, uncomplicated; X58.XXXA Exposure to other specified factors, initial encounter; Z86.79 Personal history of other diseases of the circulatory system
CPT/HCPCS: 10060; 80053; 85025; 85651; 86140; 87070; 87077; 87186; 87205; 99285

== ENCOUNTER → 2022-11-07 14:13 | Outpatient (CLI) | payer MEDICAID, SELFPAY ==
--- NOTE | 2022-11-07 14:17 | XR_ITS ---
FINAL REPORT CLINICAL HISTORY: fracture x 2 weeks FINDINGS: RIGHT CALCANEUS AP and lateral views of the right calcaneus were obtained. No acute fracture or dislocation is seen. Joint spaces are normally aligned. Soft tissues are unremarkable. IMPRESSION: No fracture identified. Reviewed, Interpreted and Dictated by Joe Brian MD Transcribed by Martha Orr Authenticated and [facility]
== END ==
PROVIDERS: PCP Family Medicine; Visit Provider Orthopaedic Surgery
DX: M79.671 Pain in right foot (principal); S92.001A Unspecified fracture of right calcaneus, initial encounter for closed fracture
CPT/HCPCS: 73650

== ENCOUNTER → 2022-11-28 14:55 | Outpatient (CLI) | payer MEDICAID, SELFPAY ==
--- NOTE | 2022-11-28 14:55 | CT_ITS ---
FINAL REPORT TECHNIQUE: Axial CT images of the chest were obtained without contrast. Low-dose protocol was utilized. This study was performed with techniques to keep radiation doses as low as reasonably achievable (ALARA). Individualized dose reduction techniques using automated exposure control or adjustment of mA and/or kV according to the patient's size were employed. CLINICAL HISTORY: lung cancer screening, smokes 1 pack per day for 30 years, has COPD, occupational exposure to asbestos, father had lung cancer COMPARISON: CT chest without 07/04/2020 FINDINGS: CT CHEST WITHOUT, LOW DOSE SCREENING CT Di Vol: 2.90 mGy DLP: 110.20 mGy*cm There is no axillary, mediastinal, or hilar mass or adenopathy. The heart size is normal. There is no pleural or pericardial effusion. The lung windows show a stable 5 mm left lateral lower lobe nodule seen on image 66. There is no new mass or nodule. There is mild emphysema. Mild scarring is noted. Limited images of the upper abdomen demonstrate stable enlarged right adrenal gland favored to represent hyperplasia or adenoma. IMPRESSION: LR Category 1: 12 month follow-up low-dose chest CT is recommended. Reviewed, Interpreted and Dictated by El Brumfield III, MD Transcribed by Gloria David Authenticated and [facility]
== END ==
PROVIDERS: PCP Family Medicine; Visit Provider Nurse Practitioner Family
DX: Z87.891 Personal history of nicotine dependence (principal); Z12.2 Encounter for screening for malignant neoplasm of respiratory organs
CPT/HCPCS: 71271

== ENCOUNTER → 2022-12-31 13:25 | Outpatient (CLI) | payer MEDICAID, SELFPAY ==
--- NOTE | 2022-12-31 13:28 | XR_ITS ---
FINAL REPORT CLINICAL HISTORY: right heel pain COMPARISON: 11/07/2022 FINDINGS: RIGHT CALCANEUS 2 views were obtained. There is no acute fracture or dislocation. The joint spaces are intact. There is no soft tissue abnormality. IMPRESSION: No acute bony abnormality. Reviewed, Interpreted and Dictated by lE Brumfield III, MD Transcribed by Melany Larios Authenticated and . [facility]
== END ==
PROVIDERS: PCP Family Medicine; Visit Provider Orthopaedic Surgery
DX: S92.001A Unspecified fracture of right calcaneus, initial encounter for closed fracture (principal)
CPT/HCPCS: 73650

== ENCOUNTER 2023-04-10 07:47 | Day surgery (SDC) | payer MEDICAID, SELFPAY ==
[2023-04-10] VITALS (12 sets, daily range): BP systolic 102–153; BP diastolic 62–93; PULSE 50–62; RESP 15–20; TEMP 36.6; O2SAT 97–99; BMI 26.5
--- NOTE | 2023-04-10 07:03 | IR_ITS ---
APPROVED REPORT Patient Location: Outpatient PROCEDURES Left heart catheterization Left ventriculogram Selective coronary angiogram INDICATION Known coronary artery disease, As tolerated angina pectoris, Informed consent was obtained prior to the procedure. COMPLICATIONS NONE Estimated Blood Loss: LESS THAN 10 ML TECHNIQUE One percent lidocaine used to anesthetize the right anterior aspect of the wrist. The right radial artery was accessed via the Seldinger technique. A 6 Kinyarwanda sheath was placed in the right radial artery. 2.5 mg of Verapamil, 800 mcg of nitroglycerin, 1mg Lidocaine and 5000 U Heparin were given through the arterial sheath. The papa catheter was also used to perform left heart catheterization, left ventriculogram and selective coronary angiogram. At the end of the procedure the sheath was removed good hemostasis was achieved using Traclet band, patient was transferred to the postop holding area in stable condition. ANGIOGRAPHIC RESULTS The left main artery Normal The left anterior descending artery Has mild 10% proximal luminal irregularities with mid vessel 10% luminal irregularities The circumflex artery Is nondominant and has proximal 10 to 20% stenosis with a mid vessel 30% stenosis extending into the terminal obtuse marginal artery The right coronary artery Is dominant has a stent in the proximal segment which is widely patent free of in-stent restenosis with excellent proximal distal transitioning The CARO ventriculogram reveals Normal 65% The left ventricular end-diastolic pressure 10 mmHg IMPRESSION ALLISON II flow down the LAD consistent with endothelial dysfunction Widely patent coronary arteries as described above Normal ejection fraction Normal left ventricular end-diastolic pressure PLAN 1. Treatment of endothelial dysfunction which is the etiology for patient's angina 2. Risk factor modification Electronically signed by : Marcel Lew MD 04/10/2023 10:34:10
[2023-04-10 08:24] LABS: Basophils # 0.1 K/mm3 (0-0.2); Basophils % 0.8 % (0.1-2.0); Eosinophils # 0.1 K/mm3 (0.0-0.4); Eosinophils % 1.2 % (0.1-12.0); Hematocrit 47.6 % (42.0-52.0); Hemoglobin 15.4 g/dL (14.1-18.0); Lymphocytes % 29.6 % (10-50); Mean Corpuscular HGB Conc 32.3 g/dL (31.8-35.4); Mean Corpuscular Hemoglobin 33.5 pg (27.0-31.2); Mean Corpuscular Volume 103.7 fl (80-94); Mean Platelet Volume 8.9 fl (7.4-10.4); Monocytes # 0.5 K/mm3 (0.1-1.0); Neutrophils % 60.5 % (37.0-80.0); Platelet Count 208 K/mm3 (142-424); Red Blood Count 4.59 M/mm3 (4.60-6.20); Red Cell Distribution Width 13.7 % (11.5-17.5); White Blood Count 6.6 K/mm3 (4.8-10.8)
[2023-04-10 08:31] LABS: Chloride 101 mmol/L (98-107); Potassium 4.1 mmoL/L (3.5-5.1); Sodium 140 mmol/L (136-145)
[2023-04-10 08:34] LABS: Blood Urea Nitrogen 14 mg/dl (9-20); Creatinine Clearance Estimated 95 mL/min (50-200); Estimated Glomerular Filt Rate 64 ml/min (>60); GFR (African American) 78 ML/MIN (>60)
[2023-04-10 08:35] LABS: Anion Gap 14.1 mEq/L (5-15); Calcium 10.1 mg/dl (8.4-10.2); Carbon Dioxide 29 mmol/L (22.0-30.0); Glucose 106 mg/dl (74-100)
== END 2023-04-10 14:17 | disposition home or self-care (01) ==
PROVIDERS: PCP Family Medicine; Visit Provider Internal Medicine
DX: R94.39 Abnormal result of other cardiovascular function study (principal); F17.210 Nicotine dependence, cigarettes, uncomplicated; Z79.01 Long term (current) use of anticoagulants; Z79.899 Other long term (current) drug therapy; I25.118 Atherosclerotic heart disease of native coronary artery with other forms of angina pectoris
CPT/HCPCS: 80048; 85025; 93458; 99152; C1725; C1769; J1644; Q9967

== ENCOUNTER 2023-08-21 14:39 | Emergency (ER) | payer MEDICAID, SELFPAY ==
[2023-08-21] VITALS (8 sets, daily range): BP systolic 109–133; BP diastolic 72–89; PULSE 64–72; RESP 9–19; TEMP 36.7; O2SAT 97–100; BMI 25.0
--- NOTE | 2023-08-21 14:40 | ECG_ITS ---
APPROVED REPORT Exam: Resting ECG HR:67 bpm ECG Measurements Heart Rate 67 AXES DC 182 P 31 QRSd 101 QRS 14 QT 378 T 33 QTc 393 Conclusion SINUS RHYTHM LOW QRS VOLTAGE IN PRECORDIAL LEADS [QRS DEFLECTION < 1.0 mV IN CHEST LEADS] BORDERLINE ECG UNCONFIRMED REPORT Electronically signed by : Jordon Chris MD 08/21/2023 20:29:33
--- NOTE | 2023-08-21 14:42 | XR_ITS ---
FINAL REPORT CLINICAL HISTORY: CP smoker x 25 yrs COMPARISON: 07/20/2021 FINDINGS: Two views of the chest were obtained. The heart size and pulmonary vascularity are within normal limits. The mediastinum is normal. No acute pulmonary abnormality is identified. There is no pneumothorax. The bony thorax is intact. IMPRESSION: No active cardiopulmonary disease. Reviewed, Interpreted and Dictated by El Brumfield III, MD Transcribed by Petra Dumont Authenticated and [facility]
--- NOTE | 2023-08-21 14:53 | ED_ITS ---
Discharge Plan Disposition Patient Disposition: Home, Self-Care Prescriptions Prescriptions: No Action amlodipine 10 mg tablet 10 mg PO DAILY Qty: 30 5RF albuterol sulfate 90 mcg/actuation HFA aerosol inhaler 2 puff inhalation Q4-6H PRN (Reason: shortness of breath or wheezing) Qty: 8.5 0RF simethicone 250 mg capsule 250 mg PO DAILY PRN (Reason: abdominal distention) Qty: 60 2RF alprazolam [Xanax] 0.25 mg tablet 0.25 mg PO BID PRN (Reason: anxiety) Qty: 60 5RF gabapentin 800 mg tablet 800 mg PO Q6H Qty: 120 5RF ticagrelor 90 mg tablet 90 mg PO BID Qty: 180 3RF simvastatin 40 mg tablet 40 mg PO DAILY Qty: 90 3RF amitriptyline 75 mg tablet 75 mg PO DAILY Qty: 90 3RF bisoprolol fumarate 5 mg tablet See Rx Instructions .ROUTE .COMPLEX Qty: 30 10RF Dose Instruction: TAKE 1 TABLET BY MOUTH DAILY Rx Instructions: TAKE 1 TABLET BY MOUTH DAILY omeprazole 40 mg capsule,delayed release(DR/EC) 40 mg PO DAILY aspirin 81 mg tablet,delayed release (DR/EC) See Rx Instructions .ROUTE .COMPLEX Rx Instructions: TAKE 1 TABLET BY MOUTH EVERY DAY WITH FOOD isosorbide mononitrate 120 MG tablet extended release 24 hr 120 mg PO DAILY ergocalciferol (vitamin D2) 1,250 MCG capsule See Rx Instructions .Route .COMPLEX Rx Instructions: TAKE 1 CAPSULE BY MOUTH ONCE WEEKLY Referrals Follow up/Referrals: Marcel Lew MD [Staff Physician] - See instructions Provider,MD Arelis [Referring] - See instructions Activity Restrictions/Add. Instructions Additional Instructions/Restrictions: At this time it was felt you are safe to be discharged home. If new or worsening symptoms please do not hesitate to return the emergency department. Please call and schedule appoint with Dr. Lew as you are able. Clinical Impressions Clinical Impression: Chest pain Discharge ED Provider: Raj Kolb HPI <Raj Kolb MD - Last Filed: 08/21/23 15:29> General Chief Complaint: Chest Pain Stated Complaint: CP Time Seen by Provider: 08/21/23 14:42 History of Present Illness HPI narrative: Patient is a 53-year-old with past medical history of coronary artery disease status post stenting who presents emergency department for evaluation of chest pain. Onset was acute, occurring at 1:30 PM, stuttering, substernal, sharp and severe in intensity. It occurred at rest, no modification with activity. Due to persistent symptoms he presents here for continued evaluation. Denies cough, other acute symptoms at this time. Related Data Home Medications Medication Instructions Recorded Confirmed isosorbide mononitrate 120 mg 120 mg PO DAILY chest pain' 04/01/20 06/12/23 tablet,extended release 24 hr ergocalciferol (vitamin D2) 1,250 See Rx Instructions .Route 11/07/21 06/12/23 mcg (50,000 unit) capsule .COMPLEX Supplement aspirin 81 mg tablet,delayed See Rx Instructions .Route 04/10/23 06/12/23 release .COMPLEX Heart Disease omeprazole 40 mg capsule,delayed 40 mg PO DAILY stomach 04/10/23 06/12/23 release Previous Rx's Medication Instructions Recorded albuterol sulfate 90 mcg/actuation 2 puff inhalation Q4-6H PRN 10/18/22 aerosol inhaler shortness of breath or wheezing #8.5 grams ticagrelor 90 mg tablet 90 mg PO BID Blood thinner #180 12/04/22 tabs simvastatin 40 mg tablet 40 mg PO DAILY Cholesterol #90 tabs 12/16/22 amitriptyline 75 mg tablet 75 mg PO DAILY Depression #90 tabs 01/30/23 bisoprolol fumarate 5 mg tablet See Rx Instructions .Route 04/22/23 .COMPLEX #30 tabs amlodipine 10 mg tablet 10 mg PO DAILY bp #30 tabs 04/28/23 alprazolam 0.25 mg tablet (Xanax) 0.25 mg PO BID PRN anxiety #60 tabs 06/12/23 gabapentin 800 mg tablet 800 mg PO Q6H Pain #120 tabs 06/12/23 simethicone 250 mg capsule 250 mg PO DAILY PRN abdominal 06/12/23 distention #60 caps Allergies Allergy/AdvReac Type Severity Reaction Status Date / Time No Known Allergies Allergy Verified 06/12/23 14:07 [facility] <Raj Kolb MD - Last Filed: 08/21/23 15:29> [facility] Disclaimer: The information contained in this section may have been updated after the patient was seen, as this information can be updated by other users. Medical History Angina pectoris Atypical angina CAD (coronary artery disease) Chest pain Chronic back pain Dyspnea Fatigue HHD (hypertensive heart disease) HLD (hyperlipidemia) Leg pain, bilateral Smoker Tobacco dependence syndrome Surgical History History of colonoscopy Family History Other No significant family history Social History Smoking Status: Current every day smoker tobacco type: cigarettes packs per day: 2 second hand exposure: Yes alcohol intake: current substance use type: denies use current occupational status: unemployed Travel in the last 8 weeks: Inside the [place] household members: other housing: other number of children: 3 current occupational exposures/hazards: No caffeine: Yes <Raj Kolb MD - Last Filed: 08/21/23 15:29> ROS Obtained: Yes Systems reviewed as appropriate & no additional complaints except as documented Physical Exam <Raj Kolb MD - Last Filed: 08/21/23 15:29> General General appearance: alert and in no apparent distress Head Head exam: atraumatic and normocephalic Eye Eye exam: Present PERRL and EOMI ENT ENT exam: Present mucous membranes moist Neck Neck exam: Present normal inspection Chest Chest inspection: Present normal inspection and symmetric chest wall rise Respiratory Respiratory exam: Present normal lung sounds bilaterally; Absent respiratory distress Cardiovascular Cardiovascular exam: Present regular rate and normal rhythm Abdominal Exam Abdominal exam: Present soft; Absent tenderness Extremities Exam Extremities exam: Present normal inspection Neurological Exam Neurological exam: Present alert and oriented X3 Psychiatric Psychiatric exam: Present normal affect Skin Skin exam: Present warm and dry HEART Score <Raj Kolb MD - Last Filed: 08/21/23 15:29> HEART Score HEART Score assessment performed?: Yes History (anamnesis): Moderately suspicious ECG: Normal Age: 45-65 years Risk factors: Atherosclerosis history Troponin: </= normal limit HEART Score: 4 <Alejandra Thrasher MD - Last Filed: 08/21/23 18:12> HEART Score HEART Score: 4 Critical Care <Raj Kolb MD - Last Filed: 08/21/23 15:29> Critical Care Time Critical Care Time: No Medical Decision Making <Raj Kolb MD - Last Filed: 08/21/23 15:29> Jose Raul Jimenez Pt receiving controlled substance: No Vital Signs Vital Signs: 08/21/23 14:53 08/21/23 14:53 08/21/23 15:00 Temperature 98.0 F Temperature Source Oral Pulse Rate 66 69 Pulse Rate [Left Radial] 70 Respiratory Rate 16 13 Blood Pressure 115/80 Blood Pressure [Right Arm] 130/84 Blood Pressure Mean Blood Pressure Mean [Right Arm] 99 02 Sat by Pulse Oximetry 99 97 Oxygen Delivery Method Room Air 08/21/23 15:30 08/21/23 16:15 08/21/23 16:30 Temperature Temperature Source Pulse Rate 68 65 66 Pulse Rate [Left Radial] Respiratory Rate 9 L 13 17 Blood Pressure 133/89 121/72 121/72 Blood Pressure [Right Arm] Blood Pressure Mean 103 101 Blood Pressure Mean [Right Arm] 02 Sat by Pulse Oximetry 100 100 100 Oxygen Delivery Method 08/21/23 17:00 08/21/23 17:30 Temperature Temperature Source Pulse Rate 64 67 Pulse Rate [Left Radial] Respiratory Rate 12 19 Blood Pressure 109/78 L 125/82 Blood Pressure [Right Arm] Blood Pressure Mean 88 96 Blood Pressure Mean [Right Arm] 02 Sat by Pulse Oximetry 100 100 Oxygen Delivery Method Lab Data Labs: Lab Results 08/21/23 14:43: WBC 9.1, RBC 4.21 L, Hgb 14.7, Hct 42.5, MCV 100.9 H, MCH 34.9 H , MCHC 34.6, RDW 13.3, Plt Count 193, MPV 8.4, Neut % (Auto) 63.0, Lymph % (Auto) 30.5, Moca % (Auto) 5.1, Eos % (Auto) 0.7, Baso % (Auto) 0.7, Neut # (Auto) 5.8, Lymph # (Auto) 2.8, Moca # (Auto) 0.5, Eos # (Auto) 0.1, Baso # (Auto) 0.1, Sodium 141, Potassium 4.0, Chloride 105, Carbon Dioxide 27, Anion Gap 13.0, BUN 8 L, Creatinine 1.00, Estimated Creat Clear 107, Estimated GFR 79, Est GFR ( Amer) 95, Glucose 97, Calcium 9.0, Total Bilirubin 0.6, AST 42, ALT 35, Alkaline Phosphatase 70, Troponin I < 0.01, Total Protein 7.6, Albumin 4.6, Globulin 3.0, Albumin/Globulin Ratio 1.5 08/21/23 17:27: Troponin I < 0.01 08/21/23 14:43 08/21/23 14:43 Response Orders (Tests/Meds): ED MEDICATIONS Generic Name Dose Route Start Last Admin Trade Name Freq PRN Reason Stop Dose Admin Nitroglycerin 0.4 mg 08/21/23 14:54 Nitroglycerin 0.4mg Sl Tablet SL 09/20/23 14:53 Q5MINP PRN Chest Pain Discontinued Medications Generic Name Dose Route Start Last Admin Trade Name Freq PRN Reason Stop Dose Admin Aspirin 324 mg 08/21/23 14:54 08/21/23 15:06 Aspirin 81mg Chewable Tablet PO 08/21/23 14:55 324 mg ONCE ONE Administration Morphine Sulfate 2 mg 08/21/23 14:54 08/21/23 15:07 Morphine 2mg/Ml Syringe IV 08/21/23 14:55 2 mg ONCE ONE Administration ORDERS Category Date Time Status CXR 2 view (NOT portable) [XR chest 2V] Stat Exams 08/21/23 14:42 Completed Complete Blood Count Auto Diff Stat Lab 08/21/23 14:43 Completed Comprehensive Metabolic Panel Stat Lab 08/21/23 14:43 Completed Troponin I Q3H Lab 08/21/23 17:27 Completed Troponin I Q3H Lab 08/21/23 20:45 Ordered Troponin I Stat Lab 08/21/23 14:43 Completed ECG initial Besson Routine Y 08/21/23 14:40 Completed ECG Data Tracing #1: ECG Narrative: Independently interpreted by me, rate is 67, rhythm is regular, axis is normal, no ST elevation in anatomical contiguous leads, QTc 393. MDM Narrative Medical Decision Narrative: In summary patient is a 53-year-old with past medical history described above who presents emergency department for evaluation of chest pain. Patient is hemodynamically stable nontoxic-appearing upon arrival, afebrile. Differential diagnosis includes ACS, noncardiac chest pain, among others. Workup will be conducted with hematologic labs, chest x-ray, EKG, serial troponins. Initial EKG is nonischemic. Initial interventions include aspirin, morphine, nitroglycerin. Initial workup reviewed by me, hematologic labs are nonactionable, initial troponin below detectable limit. Repeat troponin and evaluation pending at time of transfer of care to the oncoming physician, Dr. Thrasher. <Alejandra Thrasher MD - Last Filed: 08/21/23 18:12> Vital Signs Vital Signs: 08/21/23 14:53 08/21/23 14:53 08/21/23 15:00 Temperature 98.0 F Temperature Source Oral Pulse Rate 66 69 Pulse Rate [Left Radial] 70 Respiratory Rate 16 13 Blood Pressure 115/80 Blood Pressure [Right Arm] 130/84 Blood Pressure Mean Blood Pressure Mean [Right Arm] 99 02 Sat by Pulse Oximetry 99 97 Oxygen Delivery Method Room Air 08/21/23 15:30 08/21/23 16:15 08/21/23 16:30 Temperature Temperature Source Pulse Rate 68 65 66 Pulse Rate [Left Radial] Respiratory Rate 9 L 13 17 Blood Pressure 133/89 121/72 121/72 Blood Pressure [Right Arm] Blood Pressure Mean 103 101 Blood Pressure Mean [Right Arm] 02 Sat by Pulse Oximetry 100 100 100 Oxygen Delivery Method 08/21/23 17:00 08/21/23 17:30 Temperature Temperature Source Pulse Rate 64 67 Pulse Rate [Left Radial] Respiratory Rate 12 19 Blood Pressure 109/78 L 125/82 Blood Pressure [Right Arm] Blood Pressure Mean 88 96 Blood Pressure Mean [Right Arm] 02 Sat by Pulse Oximetry 100 100 Oxygen Delivery Method Lab Data Lab results reviewed: Yes I reviewed the patient's lab results. Labs: Lab Results 08/21/23 14:43: WBC 9.1, RBC 4.21 L, Hgb 14.7, Hct 42.5, MCV 100.9 H, MCH 34.9 H , MCHC 34.6, RDW 13.3, Plt Count 193, MPV 8.4, Neut % (Auto) 63.0, Lymph % (Auto) 30.5, Moca % (Auto) 5.1, Eos % (Auto) 0.7, Baso % (Auto) 0.7, Neut # (Auto) 5.8, Lymph # (Auto) 2.8, Moca # (Auto) 0.5, Eos # (Auto) 0.1, Baso # (Auto) 0.1, Sodium 141, Potassium 4.0, Chloride 105, Carbon Dioxide 27, Anion Gap 13.0, BUN 8 L, Creatinine 1.00, Estimated Creat Clear 107, Estimated GFR 79, Est GFR ( Amer) 95, Glucose 97, Calcium 9.0, Total Bilirubin 0.6, AST 42, ALT 35, Alkaline Phosphatase 70, Troponin I < 0.01, Total Protein 7.6, Albumin 4.6, Globulin 3.0, Albumin/Globulin Ratio 1.5 08/21/23 17:27: Troponin I < 0.01 Response Orders (Tests/Meds): ED MEDICATIONS Generic Name Dose Route Start Last Admin Trade Name Freq PRN Reason Stop Dose Admin Nitroglycerin 0.4 mg 08/21/23 14:54 Nitroglycerin 0.4mg Sl Tablet SL 09/20/23 14:53 Q5MINP PRN Chest Pain Discontinued Medications Generic Name Dose Route Start Last Admin Trade Name Freq PRN Reason Stop Dose Admin Aspirin 324 mg 08/21/23 14:54 08/21/23 15:06 Aspirin 81mg Chewable Tablet PO 08/21/23 14:55 324 mg ONCE ONE Administration Morphine Sulfate 2 mg 08/21/23 14:54 08/21/23 15:07 Morphine 2mg/Ml Syringe IV 08/21/23 14:55 2 mg ONCE ONE Administration ORDERS Category Date Time Status CXR 2 view (NOT portable) [XR chest 2V] Stat Exams 08/21/23 14:42 Completed Complete Blood Count Auto Diff Stat Lab 08/21/23 14:43 Completed Comprehensive Metabolic Panel Stat Lab 08/21/23 14:43 Completed Troponin I Q3H Lab 08/21/23 17:27 Completed Troponin I Q3H Lab 08/21/23 20:45 Ordered Troponin I Stat Lab 08/21/23 14:43 Completed ECG initial Besson Routine Y 08/21/23 14:40 Completed MDM Narrative Medical Decision Narrative: In summary patient is a 53-year-old with past medical history described above who presents emergency department for evaluation of chest pain. Patient is hemodynamically stable nontoxic-appearing upon arrival, afebrile. Differential diagnosis includes ACS, noncardiac chest pain, among others. Workup will be conducted with hematologic labs, chest x-ray, EKG, serial troponins. Initial EKG is nonischemic. Initial interventions include aspirin, morphine, nitroglycerin. Initial workup reviewed by me, hematologic labs are nonactionable, initial troponin below detectable limit. Repeat troponin and evaluation pending at time of transfer of care to the oncoming physician, Dr. Thrasher. Second troponin undetectably low patient stable for outpatient follow-up cardiology and Dr. Kolb's previously determined plan. Patient stable upon being discharged.
--- NOTE | 2023-08-21 14:53 | PC.NURSE ---
Paged cardiology pension administrator after attempting to call office twice
[2023-08-21 14:54] LABS: Basophils # 0.1 K/mm3 (0-0.2); Basophils % 0.7 % (0.1-2.0); Eosinophils # 0.1 K/mm3 (0.0-0.4); Eosinophils % 0.7 % (0.1-12.0); Hematocrit 42.5 % (42.0-52.0); Hemoglobin 14.7 g/dL (14.1-18.0); Lymphocytes # 2.8 K/mm3 (0.7-4.5); Lymphocytes % 30.5 % (10-50); Mean Corpuscular HGB Conc 34.6 g/dL (31.8-35.4); Mean Corpuscular Hemoglobin 34.9 pg (27.0-31.2); Mean Corpuscular Volume 100.9 fl (80-94); Mean Platelet Volume 8.4 fl (7.4-10.4); Monocytes # 0.5 K/mm3 (0.1-1.0); Monocytes % 5.1 % (1.7-9.3); Neutrophils # 5.8 K/mm3 (1.8-7.8); Platelet Count 193 K/mm3 (142-424); Red Blood Count 4.21 M/mm3 (4.60-6.20); Red Cell Distribution Width 13.3 % (11.5-17.5); White Blood Count 9.1 K/mm3 (4.8-10.8)
--- NOTE | 2023-08-21 14:56 | PC.NURSE ---
Dr. Kolb speaking with Cardiology
[2023-08-21 15:04] LABS: Chloride 105 mmol/L (98-107); Sodium 141 mmol/L (136-145)
[2023-08-21 15:06] LABS: Alanine Aminotransferase 35 U/L (12-78); Aspartate Amino Transferase 42 U/L (17-59); Blood Urea Nitrogen 8 mg/dl (9-20); Creatinine Clearance Estimated 107 mL/min (50-200); Estimated Glomerular Filt Rate 79 ml/min (>60); GFR (African American) 95 ML/MIN (>60)
[2023-08-21] MEDS: ASPIRIN 81MG CHEWABLE TABLET 324 MG PO (15:06)
[2023-08-21 15:07] LABS: Albumin Level 4.6 g/dl (3.5-5.0); Albumin/Globulin Ratio 1.5 (1.1-1.8); Alkaline Phosphatase 70 U/L (38-126); Bilirubin,Total 0.6 mg/dl (0.2-1.3); Carbon Dioxide 27 mmol/L (22.0-30.0); Glucose 97 mg/dl (74-100); Total Protein,Serum 7.6 g/dl (6.3-8.2)
[2023-08-21] MEDS: MORPHINE 2MG/ML SYRINGE 2 MG IV (15:07)
--- NOTE | 2023-08-21 15:12 | PC.NURSE ---
Pt gone to RAD via wheelchair
--- NOTE | 2023-08-21 15:17 | PC.NURSE ---
Pt returned from RAD
[2023-08-21 15:20] LABS: Troponin I < 0.01 ng/ml (0.00-0.034)
--- NOTE | 2023-08-21 15:32 | PC.NURSE ---
Dr. Kolb at BS to update pt on results and POC
--- NOTE | 2023-08-21 17:29 | PC.NURSE ---
REPEAT TROP SENT, PT WITHOUT NEEDS AT THIS TIME
[2023-08-21 17:57] LABS: Troponin I < 0.01 ng/ml (0.00-0.034)
== END 2023-08-21 18:20 | disposition home or self-care (01) ==
PROVIDERS: Emergency Provider Emergency Medicine; PCP Nurse Practitioner Family
DX: R07.9 Chest pain, unspecified (principal); I25.118 Atherosclerotic heart disease of native coronary artery with other forms of angina pectoris; I11.0 Hypertensive heart disease with heart failure; E78.5 Hyperlipidemia, unspecified; F17.210 Nicotine dependence, cigarettes, uncomplicated
CPT/HCPCS: 71046; 80053; 84484; 85025; 93005; 96374; 99285

== ENCOUNTER 2024-01-20 14:56 | Outpatient (CLI) | payer MEDICAID, SELFPAY ==
--- NOTE | 2024-01-20 14:56 | CT_ITS ---
FINAL REPORT TECHNIQUE: Thin section axial images were obtained from the lung apices to the upper abdomen by computed tomography. Reformatted images were obtained and reviewed. This study was performed with techniques to keep radiation doses al low as reasonably achievable (ALARA). Individualized dose reduction techniques using automated exposure control or adjustment of mA and/or kV according to the patient's size were employed. CLINICAL HISTORY: lung cancer screening smoker 30 years, 1 PPD COMPARISON: 11/28/2022 FINDINGS: CHEST CT LOW DOSE 54-year-old male, 83-dhie-aovg history of smoking, current smoker CTDI vol (mGy): 2.9 DLP (mGy-cm): 104.46 There is no axillary adenopathy. There is no mediastinal or hilar mass or adenopathy. The heart is normal in size. There is no pericardial or pleural effusion. There is mild emphysema and mild pulmonary scarring, particularly in the apices.. Lung window images demonstrate a 5 mm lateral left lower lobe nodule best seen on image #60, stable when compared to the prior exam.. Limited images of the upper abdomen reveal right adrenal hyperplasia or adenoma, unchanged.. IMPRESSION: Lung-RADS category 1. Recommend 12 month follow up low dose chest CT. Reviewed, Interpreted and Dictated by El Brumfield III, MD Transcribed by Petra Dumont Authenticated and [facility]
== END 2024-01-20 23:59 | disposition home or self-care (01) ==
LOC: RAD 14:56
PROVIDERS: PCP Nurse Practitioner Family; Visit Provider Nurse Practitioner Family
DX: R06.02 Shortness of breath (principal); F17.210 Nicotine dependence, cigarettes, uncomplicated
CPT/HCPCS: 71271

== ENCOUNTER 2024-06-17 14:23 | Outpatient (CLI) | payer MEDICAID, SELFPAY ==
[2024-06-17 20:52] LABS: Prostate Specific Ag Screen 0.4 ng/ml (0.0-4.0)
[2024-06-17 21:11] LABS: Vitamin B12 403 pg/mL (239-931)
[2024-06-17 21:19] LABS: HIV (1&2) Antibody Rapid NONREACTIVE (NONREACTIVE)
[2024-06-19 05:11] LABS: HCV Ab Non Reactive (Non Reactive)
== END 2024-06-17 23:59 | disposition home or self-care (01) ==
LOC: LAB.DROPOF 06-18 09:34
PROVIDERS: PCP Family Medicine; Visit Provider Family Medicine
DX: R73.03 Prediabetes (principal); F33.1 Major depressive disorder, recurrent, moderate; F17.210 Nicotine dependence, cigarettes, uncomplicated
CPT/HCPCS: 82607; 86803; 87389; G0103

== ENCOUNTER 2024-09-16 11:19 | Outpatient (CLI) | payer MEDICAID, SELFPAY ==
--- NOTE | 2024-09-16 | CA_ITS ---
APPROVED REPORT Exam: Pharmacologic Technologist: Melia Garrido Ht: 6 ft 3 in Wt: 208 lbs BSA: 2.23 m2 HR: 70 bpm BP: 116/77 mmHg Stress Test Details Test: Lexiscan HR Resting HR: 70 bpm Max Heart Rate (APMHR): 168 bpm Max HR Achieved: 81 bpm Target HR (85% APMHR): 143 bpm % of APMHR: 48 Recovery HR: 78 bpm BP Resting BP: 116.0/77.0 mmHg Max BP: 134.0/74.0 mmHg Recovery BP: 124.0/89.0 mmHg ECG Resting ECG: NSR Stress ECG Conclusion Symptoms: None. Arrhythmias/Ectopy: None. ST-T Changes: <1.5mm ST Segment changes. Conclusion: Non-diagnostic Lexiscan stress test. Electronically signed by : Natasha Fischer MD 09/17/2024 00:18:27
--- NOTE | 2024-09-16 11:19 | NM_ITS ---
APPROVED REPORT Exam: Nuclear Stress Test Indication: chest pain..soa..palpitations..fatigue Patient Location: Outpatient Stress Tech: Melia Amaro [place] Tech:Melody Malik ARRLexie RT(R)(N) Ht: 6 ft 1 in Wt: 205 lbs HR: 67 bpm BP: 116/77 mmHg BSA: 2.17 m2 TID: 1.06 BMI: 27.0 History: chest pain..soa..palpitations..fatigue Procedure: Patient received 0.4 mg of intravenous Lexiscan, resting heart rate 67 bpm, resting blood pressure 116/77 mmHg, with Lexiscan maximum heart rate achieved was 82 bpm which is 85 % of the maximum predicted heart rate and blood pressure was 134/74 mmHg. With Lexiscan, patient denied any complaint of chest pain. Cardiac Stress and Resting SPECT Images: Cardiac Stress and Resting SPECT images were obtained using technetium 99m Myoview 30.7 mCi stress and 10.30 mCi at rest. Resting and stress imaging in supine and prone positions demonstrate a small sized, moderate, partially reversible perfusion defect in the basal septal LV wall. Gated imaging demonstrates normal global and regional LV systolic function. LVEF is calculated at 55%. Conclusion: Small sized, moderate, partially reversible perfusion defect in the basal septal LV wall. Findings are suggestive of partial reversible ischemia. Gated imaging demonstrates normal global and regional LV systolic function. LVEF is calculated at 55%. Electronically signed by : Natasha Fischer MD 09/17/2024 00:13:07
[2024-09-16] MEDS: ISOTOPE MYOVIEW (PER STUDY) 1 DOSE IV (14:40)
[2024-09-16] MEDS: REGADENOSON 0.4MG/5ML SYRINGE 0.4 MG IV (14:40)
[2024-09-16] MEDS: SODIUM CHLORIDE 0.9% 10ML SYR (RAD ONLY) 10 ML IV ×2 (14:41)
== END 2024-09-16 23:59 | disposition home or self-care (01) ==
LOC: RAD 11:19
PROVIDERS: PCP Nurse Practitioner Family; Visit Provider Nurse Practitioner Family
DX: R07.9 Chest pain, unspecified (principal); R06.00 Dyspnea, unspecified; R42 Dizziness and giddiness
CPT/HCPCS: 78452; 93017; 93018; A9502; J2785

== ENCOUNTER 2024-12-06 14:32 | Outpatient (CLI) | payer MEDICAID, SELFPAY ==
[2024-12-06] MEDS: ALBUTEROL 0.083% 2.5 MG/3 ML NEB IH (15:18)
--- NOTE | 2024-12-06 15:19 | PC.NURSE ---
PFT completed without incident. Albuterol 0.083% given via HHN, per written protocol, Pt tolerated tx well.
== END 2024-12-06 23:59 | disposition home or self-care (01) ==
LOC: RT 14:32
PROVIDERS: PCP Nurse Practitioner Family; Visit Provider Nurse Practitioner Family
DX: R06.02 Shortness of breath (principal); F17.210 Nicotine dependence, cigarettes, uncomplicated
CPT/HCPCS: 94060; 94726; 94729; J7613

== ENCOUNTER 2025-06-01 14:10 | Outpatient (CLI) | payer MEDICAID, SELFPAY ==
[2025-06-01 21:41] LABS: Hematocrit 40.9 % (42.0-52.0); Hemoglobin 13.8 g/dL (14.1-18.0); Immature Granulocytes % 0.2 %; Mean Corpuscular HGB Conc 33.7 g/dL (31.8-35.4); Mean Corpuscular Hemoglobin 33.1 pg (27.0-31.2); Mean Corpuscular Volume 98.1 fl (80-94); Nucleated Red Blood Cells % 0 %; Platelet Count 181 K/mm3 (142-424); Red Blood Count 4.17 M/mm3 (4.60-6.20); Red Cell Distribution Width-SD 46.7 fL; White Blood Count 5.5 K/mm3 (4.8-10.8)
[2025-06-01 22:25] LABS: Alanine Aminotransferase 17 U/L (12-78); Albumin Level 4.4 g/dl (3.5-5.0); Albumin/Globulin Ratio 1.7 (1.1-1.8); Alkaline Phosphatase 88 U/L (38-126); Anion Gap 14.6 mEq/L (5-15); Aspartate Amino Transferase 27 U/L (17-59); Bilirubin,Total 0.8 mg/dl (0.2-1.3); Blood Urea Nitrogen 12 mg/dl (9-20); Calcium 9.4 mg/dl (8.4-10.2); Carbon Dioxide 28 mmol/L (22.0-30.0); Chloride 102 mmol/L (98-107); Cholesterol 166 mg/dl (140-200); Creatinine,Serum 1.00 mg/dl (0.66-1.25); Estimated Glomerular Filt Rate 78 ml/min (>60); GFR (African American) 95 ML/MIN (>60); Globulin 2.6 g/dL (1.3-3.2); Glucose 79 mg/dl (74-100); HDL Cholesterol 43 mg/dl (40-60); Potassium 4.6 mmoL/L (3.5-5.1); Sodium 140 mmol/L (136-145); Total Protein,Serum 7.0 g/dl (6.3-8.2); Triglycerides 122 mg/dl (30-150)
[2025-06-01 22:35] LABS: Free T4 (Free Thyroxine) 0.81 ng/dl (0.78-2.19)
[2025-06-01 22:52] LABS: Thyroid Stimulating Hormone 1.51 uIU/mL (0.465-4.68)
--- OUTSIDE RECORDS SUMMARY | 2025-06-02 12:58 | XMS_ITS | Clinical Summary ---
Author Organization Healthcare Address [address] [place] [address] Care Team Providers Care Director Business Management Name Role Phone Hina Chilel FISH HATCHERY SPECIALIST Primary Care Provider [phone] Family History Medical History Relation Name Comments Coronary artery disease Other 1 Diabetes Other 2 Hypertension Other 3 Other cancer Other 4 Relation Name Status Comments Other 1 Other 2 Other 3 Other 4 Social History Tobacco Use Types Packs/Day Years Used Date Smoking Tobacco: Every Day Sex and Gender Information Value Date Recorded Sex Assigned at Not on file Legal Sex Male 8:02 PM EDT Gender Identity Not on file Sexual Orientation Not on file Last Filed Vital Signs Vital Sign Reading Time Taken Comments Blood Pressure - - Pulse - - Temperature - - Respiratory Rate - - Oxygen Saturation - - Inhaled Oxygen Concentration - - Weight 85.3 kg (188 lb 0.1 oz) 08/23/2015 1:24 P M EST Height 185.4 cm (6' 1 ) 08/23/2015 1:24 PM EST Body Mass Index 24.8 08/23/2015 1:24 PM EST Plan of Treatment Not on file Care Teams Director Business Management Relationship Specialty Start Date End Date Hina Chilel APRN [address] [place] [id number] PCP - General 12/29/20
== END 2025-06-01 23:59 ==
LOC: LAB.DROPOF 06-02 12:53
PROVIDERS: PCP Nurse Practitioner Family; Visit Provider Nurse Practitioner Family
DX: E78.5 Hyperlipidemia, unspecified (principal); I25.10 Atherosclerotic heart disease of native coronary artery without angina pectoris
CPT/HCPCS: 80053; 80061; 84439; 84443; 85025